=== PATIENT | female | born 1940 | race Caucasian/White ===

== ENCOUNTER 2018-03-04 13:54 | Inpatient (IN) | payer MEDICARE ==
--- NOTE | 2018-03-04 14:33 | ER Document Report ---
ED Medical Screen (RME) - General Chief Complaint: Abdominal Pain Stated Complaint: STOMACH AND BACK PAIN Time Seen by Provider: 03/04/18 14:29 Mode of Arrival: Wheelchair Information source: Patient TRAVEL OUTSIDE OF THE [place] IN LAST 30 DAYS: No - HPI Patient complains to provider of: Weakness Onset: Other - last 3 months since falling down Onset/Duration: Gradual - Related Data Allergies/Adverse Reactions: No Known Allergies Allergy (Verified 03/07/16 13:24) Past Medical History - General Information source: Patient - Social History Family history: CAD, CVA - Past Medical History Cardiac Medical History: Reports: Hx Hypertension - in hospital Denies: Hx Coronary Artery Disease, Hx Heart Attack Pulmonary Medical History: Denies: Hx Asthma, Hx Bronchitis, Hx COPD, Hx Pneumonia Neurological Medical History: Denies: Hx Cerebrovascular Accident, Hx Seizures Renal/ Medical History: Reports: Hx Renal Insufficiency. Denies: Hx Peritoneal Dialysis Malignancy Medical History: Reports: Hx Cervical Cancer Musculoskeltal Medical History: Denies Hx Arthritis - Immunizations Hx Diphtheria, Pertussis, Tetanus Vaccination: No Review of Systems - Review of Systems Notes: Urinary incontinence Physical Exam - Vital signs Vitals: Temp Pulse Resp BP Pulse Ox 98.2 F 91 18 127/76 H 100 03/04/18 13:57 03/04/18 13:57 03/04/18 13:57 03/04/18 13:57 03/04/18 13:57 - Notes Notes: Generally weak 70-year-old woman who is frail poor dentition No focal numbness or weakness Course - Re-evaluation Re-evalutation: 03/04/18 14:34 This generally weak 78-year-old woman will plan for broad-spectrum workup including urinalysis troponin CMP CBC and chest x-ray. This patient may have been in the length course related to an underlying urinary tract infection potentially pneumonia. We will plan for further evaluation. - Vital Signs Vital signs: Temp Pulse Resp BP Pulse Ox 98.2 F 91 18 127/76 H 100 03/04/18 13:57 03/04/18 13:57 03/04/18 13:57 03/04/18 13:57 03/04/18 13:57 Doctor's Discharge - Discharge Referrals: AYAZ LOUIE MD [Primary Care Provider] - Follow up as needed
[2018-03-04 15:07] LABS: ABSOLUTE BASOPHILS # (AUTO) 0.1 10^3/uL (0.0-0.2); ABSOLUTE EOSINOPHILS # (AUTO) 0.1 10^3/uL (0.0-0.6); ABSOLUTE LYMPHOCYTES (AUTO) 1.5 10^3/uL (0.5-4.7); ABSOLUTE MONOCYTES (AUTO) 0.4 10^3/uL (0.1-1.4); ABSOLUTE NEUT (AUTO) 7.6 10^3/uL (1.7-8.2); BASOPHILS % (AUTO) 0.6 % (0-2); EOSINOPHILS % (AUTO) 1.2 % (0-6); HEMATOCRIT 27.3 % (36.0-47.0); HEMOGLOBIN 8.7 g/dL (12.0-15.5); MEAN CORPUSCULAR HEMOGLOBIN 25.9 pg (27.0-33.4); MEAN CORPUSCULAR HGB CONC 31.9 g/dL (32.0-36.0); MEAN CORPUSCULAR VOLUME 81 fl (80-97); MONOCYTES % (AUTO) 4.6 % (3-13); PLATELET COUNT 382 10^3/uL (150-450); RED BLOOD COUNT 3.37 10^6/uL (3.72-5.28); RED CELL DISTRIBUTION WIDTH 16.4 % (11.5-14.0); SEGMENTED NEUTROPHILS % (AUTO) 78.6 % (42-78); TOTAL CELLS COUNTED % (AUTO) 100 %; WHITE BLOOD COUNT 9.7 10^3/uL (4.0-10.5)
[2018-03-04 15:28] LABS: ALANINE AMINOTRANSFERASE 16 U/L (9-52); ALBUMIN 3.7 g/dL (3.5-5.0); ALKALINE PHOSPHATASE 96 U/L (38-126); ANION GAP 15 (5-19); ASPARTATE AMINO TRANSFERASE 14 U/L (14-36); BILIRUBIN,DIRECT 0.3 mg/dL (0.0-0.4); BILIRUBIN,TOTAL 0.3 mg/dL (0.2-1.3); BLOOD UREA NITROGEN 61 mg/dL (7-20); CARBON DIOXIDE 19 mmol/L (22-30); CHLORIDE 108 mmol/L (98-107); GLUCOSE 116 mg/dL (75-110); LIPASE 114.3 U/L (23-300); POTASSIUM 5.6 mmol/L (3.6-5.0); SODIUM 141.9 mmol/L (137-145); TOTAL PROTEIN 8.2 g/dL (6.3-8.2)
--- NOTE | 2018-03-04 15:35 | RADIOLOGY REPORT (SQ) ---
EXAM DESCRIPTION: CHEST 2 VIEWS COMPLETED DATE/TIME: 03/04/2018 3:02 pm REASON FOR STUDY: weakness COMPARISON: 02/25/2016 EXAM PARAMETERS: NUMBER OF VIEWS: two views TECHNIQUE: Digital Frontal and Lateral radiographic views of the chest acquired. RADIATION DOSE: NA LIMITATIONS: none FINDINGS: LUNGS AND PLEURA: No opacities, masses or pneumothorax. No pleural effusion. MEDIASTINUM AND HILAR STRUCTURES: No masses or contour abnormalities. HEART AND VASCULAR STRUCTURES: Heart normal size. No evidence for failure. BONES: Possible old or healing rib fractures on the right anteriorly of 5th and 6th ribs. Slight kyphosis with anterior wedging midthoracic vertebral bodies. Stable. HARDWARE: None in the chest. OTHER: No other significant finding. IMPRESSION: No acute cardiopulmonary changes. COMMENT: Possible old or healing rib fractures on the right of the 5th and 6th ribs. TECHNICAL DOCUMENTATION: JOB ID: [id number] [employer]- All Rights Reserved Reading location - IP/workstation name: [email or web address]
[2018-03-04 17:47] LABS: APPEARANCE,URINE TURBID; BILIRUBIN,URINE NEGATIVE (NEGATIVE); COLOR,URINE YELLOW; GLUCOSE, URINE NEGATIVE (NEGATIVE); KETONES,URINE NEGATIVE (NEGATIVE); LEUKOCYTE ESTERASE,URINE LARGE (NEGATIVE); NITRITE,URINE NEGATIVE (NEGATIVE); PROTEIN,URINE 100 mg/dL (NEGATIVE); URINE SPECIFIC GRAVITY 1.011; UROBILINOGEN,URINE NEGATIVE mg/dL (<2.0)
--- NOTE | 2018-03-04 19:15 | ER Document Report ---
ED General - General Chief Complaint: Abdominal Pain Stated Complaint: STOMACH AND BACK PAIN Time Seen by Provider: 03/04/18 14:29 Mode of Arrival: Wheelchair Information source: Patient Notes: 78-year-old female presented to ED for complaint of generalized weakness tiredness no appetite frequent urination and falling down frequently over the last 3 months. Patient is alert and oriented respirations regular and unlabored. She does have mild tenderness bilateral abdomen generalized no severe tenderness anywhere. Her abdomen is soft and nondistended. She does have a positive UTI. She has a low hemoglobin of 8.7 and 27.3. BUN and creatinine are 60 and 2.80. These labs were drawn in the pit area. Patient states she has just been feeling weak and tired since her mother and she passed out at her mother's in September. He states she called her doctor this morning to go in and see him but they could not see her until Friday so she decided to come to the emergency room because she just did not feel good. She states she has had frequent urination. TRAVEL OUTSIDE OF THE [place] IN LAST 30 DAYS: No - HPI Onset: Other Onset/Duration: Intermittent - In September Quality of pain: Other - Mild abdominal discomfort states he would really describe it as pain Severity: Mild Pain Level: 1 Associated symptoms: Weakness, Other - Urinary frequency falling more often weakness and just feeling terrible Exacerbated by: Movement, Walking Relieved by: Denies Similar symptoms previously: Yes Recently seen / treated by doctor: No - Related Data Allergies/Adverse Reactions: No Known Allergies Allergy (Verified 03/07/16 13:24) Past Medical History - General Information source: Patient - Social History Smoking Status: Never Smoker Cigarette use (# per day): No Chew tobacco use (# tins/day): No Smoking Education Provided: No Frequency of alcohol use: Rare Drug Abuse: None Lives with: Spouse/Significant other Family History: Reviewed & Not Pertinent, Other Patient has suicidal ideation: No Patient has homicidal ideation: No - Past Medical History Cardiac Medical History: Reports: Hx Hypertension - in hospital Pulmonary Medical History: Reports: None EENT Medical History: Reports: None Neurological Medical History: Reports: None Endocrine Medical History: Reports: None Renal/ Medical History: Reports: Hx Renal Insufficiency Malignancy Medical History: Reports: Hx Cervical Cancer GI Medical History: Reports: None Musculoskeletal Medical History: Reports Hx Arthritis, Reports Hx Musculoskeletal Deformity Skin Medical History: Reports None Psychiatric Medical History: Reports: None Traumatic Medical History: Reports: None Infectious Medical History: Reports: None Surgical Hx: Negative Past Surgical History: Reports: None - Immunizations Hx Diphtheria, Pertussis, Tetanus Vaccination: No Review of Systems - Review of Systems Constitutional: Recent illness EENT: No symptoms reported Cardiovascular: No symptoms reported Respiratory: No symptoms reported Gastrointestinal: Abdominal pain Genitourinary: Frequency Female Genitourinary: No symptoms reported Musculoskeletal: No symptoms reported Skin: No symptoms reported Hematologic/Lymphatic: No symptoms reported Neurological/Psychological: Weakness -: Yes All other systems reviewed and negative Physical Exam - Vital signs Vitals: Temp Pulse Resp BP Pulse Ox 98.2 F 91 18 127/76 H 100 03/04/18 13:57 03/04/18 13:57 03/04/18 13:57 03/04/18 13:57 03/04/18 13:57 Interpretation: Normal - General General appearance: Appears well, Alert - HEENT Head: Normocephalic, Atraumatic Eyes: Normal Pupils: PERRL - Respiratory Respiratory status: No respiratory distress Chest status: Nontender Breath sounds: Normal Chest palpation: Normal - Cardiovascular Rhythm: Regular Heart sounds: Normal auscultation Murmur: No - Abdominal Inspection: Normal Distension: No distension Bowel sounds: Normal Tenderness: Nontender Organomegaly: No organomegaly - Back Back: Normal, Nontender - Extremities General upper extremity: Normal inspection, Nontender, Normal color, Normal ROM , Normal temperature General lower extremity: Normal inspection, Nontender, Normal color, Normal ROM , Normal temperature, Normal weight bearing. No: Rashida's sign - Neurological Neuro grossly intact: Yes Cognition: Normal Orientation: AAOx4 [place] Coma Scale Eye Opening: Spontaneous [place] Coma Scale Verbal: Oriented [place] Coma Scale Motor: Obeys Commands [place] Coma Scale Total: 15 Speech: Normal Motor strength normal: LUE, RUE, LLE, RLE Sensory: Normal - Psychological Associated symptoms: Normal affect, Normal mood - Skin Skin Temperature: Warm Skin Moisture: Dry Skin Color: Normal Course - Re-evaluation Re-evalutation: 03/04/18 19:28 General Ii Farmworker the ER attending and the hospitalist . I have discussed the lab results with both and this patient will be admitted to telemetry for her low H&H and elevated BUN/creatinine as well as her UTI and weakness. A an IV of Ringer's lactate at 125 and a gram of Rocephin IV have been ordered. Patient will be reevaluated by the hospitalist for admission. Patient has verbalized understanding of her treatment plan and agreement with this treatment plan. - Vital Signs Vital signs: Temp Pulse Resp BP Pulse Ox 98.2 F 91 18 127/76 H 100 03/04/18 13:57 03/04/18 13:57 03/04/18 13:57 03/04/18 13:57 03/04/18 13:57 - Laboratory Result Diagrams: 03/04/18 14:50 03/04/18 14:50 Laboratory results interpreted by me: 03/04/18 03/04/18 03/04/18 14:50 14:50 14:50 RBC 3.37 L Hgb 8.7 L Hct 27.3 L MCH 25.9 L MCHC 31.9 L RDW 16.4 H Seg Neutrophils % 78.6 H Potassium 5.6 H Chloride 108 H Carbon Dioxide 19 L BUN 61 H Creatinine 2.80 H Est GFR ( Amer) 20 L Est GFR (Non-Af Amer) 16 L Glucose 116 H Ammonia < 8.7 L Urine Protein Urine Blood Ur Leukocyte Esterase 03/04/18 17:30 RBC Hgb Hct MCH MCHC RDW Seg Neutrophils % Potassium Chloride Carbon Dioxide BUN Creatinine Est GFR ( Amer) Est GFR (Non-Af Amer) Glucose Ammonia Urine Protein 100 H Urine Blood MODERATE H Ur Leukocyte Esterase LARGE H - Diagnostic Test Radiology reviewed: Image reviewed, Reports reviewed Discharge - Discharge Clinical Impression: Low hemoglobin, Kidney insufficiency Abdominal pain Qualifiers: Abdominal location: generalized Qualified Code(s): R10.84 - Generalized abdominal pain UTI (urinary tract infection) Qualifiers: Urinary tract infection type: site unspecified Hematuria presence: with hematuria Qualified Code(s): N39.0 - Urinary tract infection, site not specified Disposition: ADMITTED INPATIENT Admitting Provider: Hospitalist - [facility] Admitted: Telemetry
[2018-03-04] MEDS ORDERED: SODIUM POLYSTYRENE SULFONATE 15 GM/60 ML PO ONE (19:17)
[2018-03-04] MEDS ORDERED: RINGERS SOLUTION,LACTATED 1,000 ML IV ONE (19:19)
[2018-03-04] MEDS ORDERED: CEFTRIAXONE 1 GM/D5W RTU 1 GM/50 ML RTUPB IV ONE (19:20)
[2018-03-04] MEDS ORDERED: ONDANSETRON HCL INJ/PF 4 MG/2 ML SDV IV PRN (19:26)
[2018-03-04] MEDS ORDERED: IPRATROPIUM/ALBUTEROL 0.5-2.5 MG/3 ML AMPUL NEB PRN (19:26)
[2018-03-04] MEDS ORDERED: ACETAMINOPHEN 325 MG TABLET PO PRN (19:26)
[2018-03-04] MEDS ORDERED: CEFTRIAXONE SODIUM 1,000 MG in NORMAL SALINE 50 ML IV ONE (20:30)
--- NOTE | 2018-03-04 21:23 | PDOC H&P ---
History of Present Illness Admission Date/PCP: 03/04/18 19:26 Patient complains of: Weakness, shaking History of Present Illness: IVA NELSON is a 78 year old female with no significant past medical history presents to the emergency room with complaint of generalized weakness and tiredness with decreased appetite and frequent urination. Patient has been having symptoms for past few months. Patient reports she has severe generalized weakness and sometimes she falls. Patient reports getting dizzy and shaky on standing up walking around. Patient also reports increased urinary frequency but denies any fever or nausea vomiting or abdominal pain or chest pain or shortness of breath. Patient denies recent sick contacts or travel. On arrival to emergency room she was afebrile and rest of the vitals were stable. Her laboratory workup shows hemoglobin of 8.7 which is lower than last known hemoglobin around and 2015. Chemistry shows potassium of 5.6 with elevated BUN and creatinine 61/2.8. Urine analysis shows UTI. Stool for Hemoccult is positive. Patient was given ceftriaxone and was referred to hospital admission. Past Medical History Cardiac Medical History: Reports: Hypertension - in hospital Denies: Coronary Artery Disease, Myocardial Infarction Pulmonary Medical History: Reports: None Denies: Asthma, Bronchitis, Chronic Obstructive Pulmonary Disease (COPD), Pneumonia EENT Medical History: Reports: None Neurological Medical History: Reports: None Denies: Seizures Endocrine Medical History: Reports: None Malignancy Medical History: Reports: Cervical Cancer GI Medical History: Reports: None Musculoskeltal Medical History: Reports: Arthritis Skin Medical History: Reports: None Psychiatric Medical History: Reports: None Traumatic Medical History: Reports: None Hematology: Reports: Anemia Infectious Medical History: Reports: None Past Surgical History Past Surgical History: Reports: None, Hysterectomy Social History Lives with: Spouse/Significant other Smoking Status: Never Smoker Frequency of Alcohol Use: Rare Hx Recreational Drug Use: No Hx Prescription Drug Abuse: No Family History Family History: Reviewed & Not Pertinent, Other Parental Family History Reviewed: No Children Family History Reviewed: No Sibling(s) Family History Reviewed.: No Medication/Allergy Home Medications: Ibuprofen/Diphenhydramine HCl [Advil Pm Liqui-Gels] 1 cap PO HSP PRN 03/04/18 Loperamide HCl [Loperamide] 2 mg PO DAILYP PRN 03/04/18 Allergies/Adverse Reactions: No Known Allergies Allergy (Verified 03/07/16 13:24) Review of Systems All systems: reviewed and no additional remarkable complaints except as stated Physical Exam Vital Signs: Temp Pulse Resp BP Pulse Ox 98.2 F 91 18 127/76 H 100 03/04/18 13:57 03/04/18 13:57 03/04/18 13:57 03/04/18 13:57 03/04/18 13:57 General appearance: PRESENT: no acute distress, cooperative, well-developed, well-nourished Head exam: PRESENT: atraumatic, normocephalic Eye exam: PRESENT: conjunctiva pale. ABSENT: conjunctival injection, conjunctiva pink, EOMI, nystagmus, periorbital swelling, PERRLA, scleral icterus , other Ear exam: ABSENT: bleeding, drainage, normal external ear exam, TM's normal bilaterally, other Mouth exam: PRESENT: moist, neck supple Neck exam: ABSENT: carotid bruit, JVD Respiratory exam: PRESENT: clear to auscultation zahira. ABSENT: crackles, rhonchi , wheezes Cardiovascular exam: PRESENT: RRR, +S1, +S2. ABSENT: gallop, rubs, systolic murmur GI/Abdominal exam: PRESENT: normal bowel sounds, soft. ABSENT: organolmegaly, tenderness Rectal exam: PRESENT: heme (+) stool Gentrourinary exam: ABSENT: ecchymosis, erythema, lacerations, lesions, scrotal swelling, testicular tenderness, urethral discharge, indwelling catheter, other Extremities exam: ABSENT: calf tenderness, clubbing, full ROM, joint swelling, pedal edema, tenderness, +1 edema, +2 edema, other Musculoskeletal exam: PRESENT: ambulatory Neurological exam: PRESENT: alert, altered, awake, oriented to time, oriented to situation, reflexes normal Psychiatric exam: ABSENT: homicidal ideation, suicidal ideation Skin exam: PRESENT: pallor. ABSENT: petechiae, rash Results Laboratory Results: All labs reviewed Impressions: Chest X-Ray 03/04/18 14:30 IMPRESSION: No acute cardiopulmonary changes. Status: Image reviewed by me Assessment & Plan - Diagnosis (1) UTI (urinary tract infection) Qualifiers: Urinary tract infection type: site unspecified Hematuria presence: with hematuria Qualified Code(s): N39.0 - Urinary tract infection, site not specified; R31.9 - Hematuria, unspecified; R31.9 - Hematuria, unspecified Is this a current diagnosis for this admission?: Yes Plan: Patient does not appear septic. We will start patient on IV ceftriaxone and follow-up urine culture. (2) ARF (acute renal failure) Is this a current diagnosis for this admission?: Yes Plan: Patient with acute renal failure likely secondary to dehydration and poor appetite. We will continue IV fluid and recheck renal function in morning. Avoid nephrotoxic medication. (3) Occult blood in stools Is this a current diagnosis for this admission?: Yes Plan: Patient with anemia and Hemoccult-positive stool. Patient denies any janelle melena or rectal bleeding. Patient denies abdominal pain. We will consult GI service for possible colonoscopy. (4) Anemia Qualifiers: Anemia type: unspecified type Qualified Code(s): D64.9 - Anemia, unspecified Is this a current diagnosis for this admission?: Yes Plan: Likely secondary to occult GI bleed. Hemoglobin is 8.7. Will recheck CBC in the morning and consider. PRBC transfused transfusion if needed - Time Time Spent: 50 to 70 Minutes - Inpatient Certification Based on my medical assessment, after consideration of the patient's comorbidities, presenting symptoms, or acuity I expect that the services needed warrant INPATIENT care.: Yes I certify that my determination is in accordance with my understanding of Medicare's requirements for reasonable and necessary INPATIENT services [42 CFR 412.3e].: Yes Medical Necessity: Need For IV Fluids, Need for IV Antibiotics
[2018-03-05 04:01] LABS: ABSOLUTE BASOPHILS # (AUTO) 0.1 10^3/uL (0.0-0.2); ABSOLUTE EOSINOPHILS # (AUTO) 0.2 10^3/uL (0.0-0.6); ABSOLUTE LYMPHOCYTES (AUTO) 1.3 10^3/uL (0.5-4.7); ABSOLUTE MONOCYTES (AUTO) 0.6 10^3/uL (0.1-1.4); ABSOLUTE NEUT (AUTO) 7.7 10^3/uL (1.7-8.2); BASOPHILS % (AUTO) 0.6 % (0-2); EOSINOPHILS % (AUTO) 1.6 % (0-6); HEMATOCRIT 23.4 % (36.0-47.0); LYMPHOCYTES % (AUTO) 13.4 % (13-45); MEAN CORPUSCULAR HEMOGLOBIN 26.9 pg (27.0-33.4); MEAN CORPUSCULAR HGB CONC 33.1 g/dL (32.0-36.0); MEAN CORPUSCULAR VOLUME 81 fl (80-97); PLATELET COUNT 320 10^3/uL (150-450); RED BLOOD COUNT 2.88 10^6/uL (3.72-5.28); RED CELL DISTRIBUTION WIDTH 16.6 % (11.5-14.0); SEGMENTED NEUTROPHILS % (AUTO) 78.4 % (42-78); TOTAL CELLS COUNTED % (AUTO) 100 %; WHITE BLOOD COUNT 9.8 10^3/uL (4.0-10.5)
[2018-03-05 04:04] LABS: HEMOGLOBIN 7.7 g/dL (12.0-15.5)
[2018-03-05 04:29] LABS: ALANINE AMINOTRANSFERASE 19 U/L (9-52); ALBUMIN 3.3 g/dL (3.5-5.0); ALKALINE PHOSPHATASE 87 U/L (38-126); ANION GAP 13 (5-19); ASPARTATE AMINO TRANSFERASE 13 U/L (14-36); BILIRUBIN,DIRECT 0.3 mg/dL (0.0-0.4); BILIRUBIN,TOTAL 0.3 mg/dL (0.2-1.3); BLOOD UREA NITROGEN 62 mg/dL (7-20); CALCIUM 8.4 mg/dL (8.4-10.2); CARBON DIOXIDE 18 mmol/L (22-30); CHLORIDE 113 mmol/L (98-107); GLUCOSE 106 mg/dL (75-110); POTASSIUM 4.9 mmol/L (3.6-5.0); SODIUM 144.3 mmol/L (137-145); TOTAL PROTEIN 7.3 g/dL (6.3-8.2)
[2018-03-05] MEDS ORDERED: CEFTRIAXONE 1 GM/D5W RTU 1 GM/50 ML RTUPB IV SCH (10:00)
--- NOTE | 2018-03-05 11:21 | PDOC CONSULTATION ---
History of Present Illness Admission Date/PCP: 03/04/18 19:26 History of Present Illness: IVA NELSON is a 78 year old female Presents to the emergency department approximately 1 day ago via ground rescue complaining of weakness, generalized, worse over the last several weeks, associated with 40 pound weight loss over the last 6 months and decreased p.o. intake. She was found to be hyperkalemic and was given Kayexalate with clinical improvement. She has progressive chronic renal insufficiency likely stage III. Patient is seen Dr. Vyas, crocheter. Because of progressive anemia of unexplained etiology, patient was advised admission to the hospital service for further evaluation. The patient has never had a colonoscopy, denies personal and/or family history of colorectal diseases or malignancies. She denies history of GI bleed melena or history of peptic ulcer disease. Past Medical History Cardiac Medical History: Reports: Hypertension - in hospital Denies: Coronary Artery Disease, Myocardial Infarction Pulmonary Medical History: Reports: None Denies: Asthma, Bronchitis, Chronic Obstructive Pulmonary Disease (COPD), Pneumonia EENT Medical History: Reports: None Neurological Medical History: Reports: None Denies: Seizures Endocrine Medical History: Reports: None Renal/ Medical History: Reports: Chronic Kidney Disease Malignancy Medical History: Reports: Cervical Cancer GI Medical History: Reports: None Musculoskeltal Medical History: Reports: Arthritis Skin Medical History: Reports: None Psychiatric Medical History: Reports: None Traumatic Medical History: Reports: None Hematology: Reports: Anemia Infectious Medical History: Reports: None Past Surgical History Past Surgical History: Patient states she has never had an operation. She states she still has her gynecologic organs. She received radiation therapy for cervical cancer 40 years ago. Past Surgical History: Reports: None, Hysterectomy Social History Lives with: Spouse/Significant other Smoking Status: Never Smoker Frequency of Alcohol Use: Rare Hx Recreational Drug Use: No Hx Prescription Drug Abuse: No Family History Family History: Reviewed & Not Pertinent, Other Parental Family History Reviewed: Yes Children Family History Reviewed: Yes Sibling(s) Family History Reviewed.: Yes Medication/Allergy Home Medications: Ibuprofen/Diphenhydramine HCl [Advil Pm Liqui-Gels] 1 cap PO HSP PRN 03/04/18 Loperamide HCl [Loperamide] 2 mg PO DAILYP PRN 03/04/18 Allergies/Adverse Reactions: No Known Allergies Allergy (Verified 08/04/16 13:24) Review of Systems Constitutional: PRESENT: as per HPI Eyes: ABSENT: visual disturbances Ears: ABSENT: hearing changes Cardiovascular: ABSENT: chest pain, dyspnea on exertion, edema, orthropnea, palpitations Respiratory: ABSENT: cough, hemoptysis Genitourinary: PRESENT: other - Patient has a history of hematuria, current urinary tract infection; has seen urology in the past Musculoskeletal: PRESENT: other - Chronic musculoskeletal weakness Neurological: ABSENT: abnormal gait, abnormal speech, confusion, dizziness, focal weakness, syncope Physical Exam Vital Signs: Temp Pulse Resp BP Pulse Ox 98.2 F 91 18 127/76 H 100 03/04/18 13:57 03/04/18 13:57 03/04/18 13:57 03/04/18 13:57 03/04/18 13:57 Intake & Output 03/04/18 03/05/18 03/06/18 06:59 06:59 06:59 Intake Total 1050 Balance 1050 General appearance: PRESENT: no acute distress Head exam: PRESENT: normocephalic Eye exam: PRESENT: EOMI Mouth exam: PRESENT: dry mucosa Neck exam: PRESENT: full ROM Respiratory exam: PRESENT: rales Cardiovascular exam: PRESENT: RRR Pulses: PRESENT: normal carotid pulses, normal radial pulses, normal femoral pulses, normal dorsalis pedis pul, +2 pedal pulses bilateral GI/Abdominal exam: PRESENT: other - Soft, nontender no peritoneal signs no rigidity Rectal exam not performed Rectal exam: PRESENT: deferred Extremities exam: PRESENT: full ROM Musculoskeletal exam: PRESENT: ambulatory Neurological exam: PRESENT: alert, awake, oriented to person, oriented to place , oriented to time, oriented to situation Psychiatric exam: PRESENT: appropriate affect Results Laboratory Results: 03/05/18 03:50 03/05/18 03:50 03/05/18 03/05/18 03:50 03:50 WBC 9.8 RBC 2.88 L Hgb 7.7 L Hct 23.4 L MCV 81 MCH 26.9 L MCHC 33.1 RDW 16.6 H Plt Count 320 Seg Neutrophils % 78.4 H Lymphocytes % 13.4 Monocytes % 6.0 Eosinophils % 1.6 Basophils % 0.6 Absolute Neutrophils 7.7 Absolute Lymphocytes 1.3 Absolute Monocytes 0.6 Absolute Eosinophils 0.2 Absolute Basophils 0.1 Sodium 144.3 Potassium 4.9 Chloride 113 H Carbon Dioxide 18 L Anion Gap 13 BUN 62 H Creatinine 2.83 H Est GFR ( Amer) 20 L Est GFR (Non-Af Amer) 16 L Glucose 106 Calcium 8.4 Total Bilirubin 0.3 AST 13 L ALT 19 Alkaline Phosphatase 87 Total Protein 7.3 Albumin 3.3 L Impressions: Chest X-Ray 03/04/18 14:30 IMPRESSION: No acute cardiopulmonary changes. Assessment & Plan - Diagnosis (1) Anemia Qualifiers: Anemia type: unspecified type Qualified Code(s): D64.9 - Anemia, unspecified Is this a current diagnosis for this admission?: Yes Plan: This 78-year-old white female with constitutional symptoms of decreased energy, decreased appetite, weight loss, chronic anemia and relies failure to thrive concerning for worsening chronic renal failure versus occult malignancy; in light of patient never having had a colonoscopy, occult GI bleed with chronic blood loss may be responsible. Recommendations: 1. Suggested we perform upper and lower endoscopy, fifth floor, conscious sedation, later today after bowel prep. The rationale for this as well as risks benefits and alternatives were explained to the patient. She expressed understanding and agreed to proceed. 2. I discussed the above with primary care hospitalist service (2) ARF (acute renal failure) Is this a current diagnosis for this admission?: Yes (4) Occult blood in stools Is this a current diagnosis for this admission?: Yes - Time Time Spent: 30 to 50 Minutes Smoking Cessation Education: over 10 minutes Medications reviewed and adjusted accordingly: Yes Anticipated discharge: Home - Inpatient Certification Based on my medical assessment, after consideration of the patient's comorbidities, presenting symptoms, or acuity I expect that the services needed warrant INPATIENT care.: Yes I certify that my determination is in accordance with my understanding of Medicare's requirements for reasonable and necessary INPATIENT services [42 CFR 412.3e].: Yes Medical Necessity: Need For IV Fluids
[2018-03-05] MEDS ORDERED: PEG 3350/NA SULF,BICARB,CL/KCL 4000 ML PO PRN (11:22)
[2018-03-05] MEDS: NORMAL SALINE 1000 ML 1,000 ML IV PRN (12:50)
[2018-03-05] MEDS ORDERED: DIPHENHYDRAMINE HCL 50 MG/ML VIAL ONE (16:45)
[2018-03-05] MEDS ORDERED: NALOXONE HCL INJ/PF 0.4 MG/1 ML SDV ONE (16:45)
[2018-03-05] MEDS ORDERED: FENTANYL CITRATE INJ/PF 100 MCG/2 ML AMPUL ONE (16:45)
[2018-03-05] MEDS ORDERED: ONDANSETRON HCL INJ/PF 4 MG/2 ML SDV ONE (16:45)
[2018-03-05] MEDS ORDERED: EPINEPHRINE INJ 1 MG/10 ML DISP.SYRIN ONE (16:46)
[2018-03-05] MEDS ORDERED: GLUCAGON,HUMAN RECOMB 1 MG INJ ONE (16:46)
[2018-03-05] MEDS ORDERED: FLUMAZENIL INJ 0.5 MG/5 ML VIAL ONE (16:46)
--- NOTE | 2018-03-05 17:59 | PDOC PROGRESS REPORT ---
Subjective Progress Note for:: 03/05/18 Subjective:: Patient is lying in bed comfortably. She mentions that she had black stool and then she had several loose stool afterwards. Her hemoglobin is trending down but she is hemodynamically stable and essentially asymptomatic. GI plans for EGD and colonoscopy later today. Reason For Visit: UTI, WEAKNESS Physical Exam Vital Signs: Temp Pulse Resp BP Pulse Ox 98.4 F 82 18 136/68 H 96 03/05/18 17:28 03/05/18 17:28 03/05/18 17:28 03/05/18 17:28 03/05/18 17:28 Intake & Output 03/04/18 03/05/18 03/06/18 06:59 06:59 06:59 Intake Total 1050 Balance 1050 Weight 164 lb 3.91 oz Exam: Patient no acute distress Alert oriented to time place person No anxiety or depression Head atraumatic normocephalic Pupils are equal reactive Regular rate and rhythm Lungs clear no distress Abdomen nontender nondistended Neurological exam unremarkable Results Laboratory Results: 03/05/18 03:50 03/05/18 03:50 03/05/18 03/05/18 03:50 03:50 WBC 9.8 RBC 2.88 L Hgb 7.7 L Hct 23.4 L MCV 81 MCH 26.9 L MCHC 33.1 RDW 16.6 H Plt Count 320 Seg Neutrophils % 78.4 H Lymphocytes % 13.4 Monocytes % 6.0 Eosinophils % 1.6 Basophils % 0.6 Absolute Neutrophils 7.7 Absolute Lymphocytes 1.3 Absolute Monocytes 0.6 Absolute Eosinophils 0.2 Absolute Basophils 0.1 Sodium 144.3 Potassium 4.9 Chloride 113 H Carbon Dioxide 18 L Anion Gap 13 BUN 62 H Creatinine 2.83 H Est GFR ( Amer) 20 L Est GFR (Non-Af Amer) 16 L Glucose 106 Calcium 8.4 Total Bilirubin 0.3 AST 13 L ALT 19 Alkaline Phosphatase 87 Total Protein 7.3 Albumin 3.3 L Impressions: Chest X-Ray 03/04/18 14:30 IMPRESSION: No acute cardiopulmonary changes. Assessment & Plan - Diagnosis (1) Melena Is this a current diagnosis for this admission?: Yes Plan: Patient is scheduled for EGD and colonoscopy later today (2) ARF (acute renal failure) Is this a current diagnosis for this admission?: Yes Plan: Most likely prerenal Continue IV fluid hydration Monitor renal function (3) Anemia Qualifiers: Anemia type: unspecified type Qualified Code(s): D64.9 - Anemia, unspecified Is this a current diagnosis for this admission?: Yes Plan: Monitor hemoglobin and transfuse if needed (4) Occult blood in stools Is this a current diagnosis for this admission?: Yes
[2018-03-05] MEDS: MIDAZOLAM 2 MG/2 ML INJ ONE ×4 (18:40→18:55)
--- NOTE | 2018-03-05 19:21 | Operative Report ---
Operative Report DATE OF SURGERY: 03/05/18 PREOPERATIVE DIAGNOSIS: 1. Weight loss. 2. Constitutional symptoms of anorexia. 3. Occult positive stool POSTOPERATIVE DIAGNOSIS: Same with mild duodenitis; scattered diverticulosiS;. No upper or lower endoscopic evidence of GI bleeding, tumor, or other intestinal pathology OPERATION: 1. Esophagogastroduodenoscopy. 2. Total colonoscopy to cecum SURGEON: RIYA GAINES ANESTHESIA: Moderate Sedation TISSUE REMOVED OR ALTERED: None COMPLICATIONS: None ESTIMATED BLOOD LOSS: None INTRAOPERATIVE FINDINGS: See below PROCEDURE: Patient was brought from the floor to the endoscopy suite for [facility] where monitoring devices were attached, she was placed in semirecumbent position was begun for upper and lower endoscopy Surgical plan and surgical timeout conducted The flexible upper adult endoscope was advanced to the patient oropharynx with mouthpiece inserted down the esophagus through the stomach and into the duodenum. This is well tolerated by the patient The duodenum was essentially unremarkable. The transition between the pylorus and the first portion of the duodenum is mildly erythematous, but no evidence of tumor or stricture bleeding or ulceration. The scope was brought to the stomach which was normal. There was a small hiatal hernia. There is no evidence of tumor stricture bleeding or polyp in the stomach. There is no evidence of contents in the stomach. The Z line was approximately 36 cm from the incisor. The scope was withdrawn to the length of the esophagus carefully. No evidence of pathology identified. No evidence of varices. The scope was withdrawn to the patient's oropharynx. She tolerated the procedure well. Patient was repositioned now for colonoscopy. Rectal exam performed revealed appropriate sphincter tone, no visible or palpable evidence of anorectal pathology other than internal at the flexible colonoscope through the anal rectal canal, all the way to the cecum. Visualization of the cecum was achieved and the ileocecal valve, the appendiceal orifice and transillumination of the anterior abdominal wall. This was an excellent study on the well- prepped bowel. There was only residual amount of residual stool easily aspirated. The colonoscope was withdrawn slowly and methodically checked and the mucosa carefully. There was no evidence of tumor, stricture, bleeding or polyp. There were scattered diverticulosis of the sigmoid colon . The scope was slowly withdrawn through the anal rectal canal. Complete visualization of the rectum was achieved with photodocumentation. The scope was withdrawn to the patient's anus. The patient tolerated the procedure well and was taken to the recovery area in stable condition. In summary, there was no evidence of upper or lower gastrointestinal hemorrhage identified. Lines, patient will be an appropriate candidate follow-up colonoscopy in 10 years
[2018-03-05] MEDS ORDERED: CEFTRIAXONE SODIUM 1,000 MG in DEXTROSE 5%-WATER 50 ML IV SCH (22:00)
[2018-03-05] MEDS ORDERED: CEFTRIAXONE INJ 1000 MG VIAL ONE (22:34)
[2018-03-06 06:52] LABS: ABSOLUTE BASOPHILS # (AUTO) 0.1 10^3/uL (0.0-0.2); ABSOLUTE EOSINOPHILS # (AUTO) 0.1 10^3/uL (0.0-0.6); ABSOLUTE LYMPHOCYTES (AUTO) 1.5 10^3/uL (0.5-4.7); ABSOLUTE MONOCYTES (AUTO) 0.7 10^3/uL (0.1-1.4); ABSOLUTE NEUT (AUTO) 9.6 10^3/uL (1.7-8.2); BASOPHILS % (AUTO) 0.7 % (0-2); EOSINOPHILS % (AUTO) 0.9 % (0-6); HEMATOCRIT 21.7 % (36.0-47.0); LYMPHOCYTES % (AUTO) 12.6 % (13-45); MEAN CORPUSCULAR HEMOGLOBIN 26.4 pg (27.0-33.4); MEAN CORPUSCULAR HGB CONC 32.4 g/dL (32.0-36.0); MEAN CORPUSCULAR VOLUME 82 fl (80-97); MONOCYTES % (AUTO) 5.8 % (3-13); PLATELET COUNT 286 10^3/uL (150-450); RED BLOOD COUNT 2.67 10^6/uL (3.72-5.28); RED CELL DISTRIBUTION WIDTH 16.3 % (11.5-14.0); TOTAL CELLS COUNTED % (AUTO) 100 %
[2018-03-06 07:15] LABS: ALANINE AMINOTRANSFERASE 17 U/L (9-52); ALBUMIN 2.8 g/dL (3.5-5.0); ALKALINE PHOSPHATASE 78 U/L (38-126); ANION GAP 12 (5-19); ASPARTATE AMINO TRANSFERASE 11 U/L (14-36); BILIRUBIN,DIRECT 0.3 mg/dL (0.0-0.4); BILIRUBIN,TOTAL 0.3 mg/dL (0.2-1.3); BLOOD UREA NITROGEN 51 mg/dL (7-20); CARBON DIOXIDE 16 mmol/L (22-30); CHLORIDE 116 mmol/L (98-107); GLUCOSE 108 mg/dL (75-110); POTASSIUM 4.9 mmol/L (3.6-5.0); SODIUM 144.2 mmol/L (137-145); TOTAL PROTEIN 6.6 g/dL (6.3-8.2)
[2018-03-06] MEDS: NORMAL SALINE 1000 ML 1,000 ML IV PRN (13:50)
--- NOTE | 2018-03-06 14:48 | PDOC PROGRESS REPORT ---
Subjective Progress Note for:: 03/06/18 Subjective:: Patient is lying in bed comfortably. Patient feels better today. She has no urinary symptoms. She had EGD and colonoscopy yesterday was no evidence of upper or lower GI bleeding. Her hemoglobin did drop to 7.0 today but her creatinine improved slightly. Reason For Visit: UTI, WEAKNESS Physical Exam Vital Signs: Temp Pulse Resp BP Pulse Ox 98.4 F 82 16 142/67 H 100 03/06/18 11:11 03/06/18 11:11 03/06/18 11:11 03/06/18 11:11 03/06/18 11:11 Intake & Output 03/05/18 03/06/18 03/07/18 06:59 06:59 06:59 Intake Total 9869 552 4025 Balance 7437 525 1861 Weight 172 lb 6.424 oz General appearance: PRESENT: no acute distress, well-developed, well-nourished Head exam: PRESENT: atraumatic, normocephalic Eye exam: PRESENT: conjunctiva pink, EOMI, PERRLA. ABSENT: scleral icterus Ear exam: PRESENT: normal external ear exam Mouth exam: PRESENT: moist, tongue midline Neck exam: ABSENT: carotid bruit, JVD, lymphadenopathy, thyromegaly Respiratory exam: PRESENT: clear to auscultation zahira. ABSENT: rales, rhonchi, wheezes Cardiovascular exam: PRESENT: RRR. ABSENT: diastolic murmur, rubs, systolic murmur Pulses: PRESENT: normal dorsalis pedis pul Vascular exam: PRESENT: normal capillary refill GI/Abdominal exam: PRESENT: normal bowel sounds, soft. ABSENT: distended, guarding, mass, organolmegaly, rebound, tenderness Rectal exam: PRESENT: deferred Extremities exam: PRESENT: full ROM. ABSENT: calf tenderness, clubbing, pedal edema Neurological exam: PRESENT: alert, awake, oriented to person, oriented to place , oriented to time, oriented to situation, CN II-XII grossly intact. ABSENT: motor sensory deficit Psychiatric exam: PRESENT: appropriate affect, normal mood. ABSENT: homicidal ideation, suicidal ideation Skin exam: PRESENT: dry, intact, warm. ABSENT: cyanosis, rash Results Laboratory Results: 03/06/18 06:22 03/06/18 06:22 03/06/18 03/06/18 06:22 06:22 WBC 12.0 H RBC 2.67 L Hgb 7.0 L Hct 21.7 L MCV 82 MCH 26.4 L MCHC 32.4 RDW 16.3 H Plt Count 286 Seg Neutrophils % 80.0 H Lymphocytes % 12.6 L Monocytes % 5.8 Eosinophils % 0.9 Basophils % 0.7 Absolute Neutrophils 9.6 H Absolute Lymphocytes 1.5 Absolute Monocytes 0.7 Absolute Eosinophils 0.1 Absolute Basophils 0.1 Sodium 144.2 Potassium 4.9 Chloride 116 H Carbon Dioxide 16 L Anion Gap 12 BUN 51 H Creatinine 2.29 H Est GFR ( Amer) 25 L Est GFR (Non-Af Amer) 21 L Glucose 108 Calcium 8.0 L Total Bilirubin 0.3 AST 11 L ALT 17 Alkaline Phosphatase 78 Total Protein 6.6 Albumin 2.8 L Impressions: Chest X-Ray 03/04/18 14:30 IMPRESSION: No acute cardiopulmonary changes. Assessment & Plan - Diagnosis (1) Melena Is this a current diagnosis for this admission?: Yes Plan: EGD and colonoscopy done yesterday and there was no evidence of upper or lower GI bleed Hemoglobin dropped today to 7.0 but she is asymptomatic This is likely due to hemodilution from IV fluids We will check iron studies and ferritin and LDH and reticulocyte count Most likely this is chronic anemia and worsened with IV hydration and possible occult chronic blood loss Monitor hemoglobin tomorrow and transfuse if needed (2) ARF (acute renal failure) Is this a current diagnosis for this admission?: Yes Plan: Improvement with hydration most likely prerenal Continue IV fluid hydration Monitor renal function (3) Anemia Qualifiers: Anemia type: unspecified type Qualified Code(s): D64.9 - Anemia, unspecified Is this a current diagnosis for this admission?: Yes Plan: Monitor hemoglobin and transfuse if needed (4) Occult blood in stools Is this a current diagnosis for this admission?: Yes (5) UTI (urinary tract infection) Qualifiers: Urinary tract infection type: site unspecified Hematuria presence: with hematuria Qualified Code(s): N39.0 - Urinary tract infection, site not specified; R31.9 - Hematuria, unspecified; R31.9 - Hematuria, unspecified Is this a current diagnosis for this admission?: Yes Plan: Cultures positive for E. coli Start ciprofloxacin
[2018-03-06 15:40] LABS: ABSOLUTE RETICS # 0.033 10^6/uL (0.028-0.122); RETICULOCYTE COUNT (AUTO) 1.23 % (0.66-2.85)
[2018-03-06 16:43] LABS: FOLATE 7.13 ng/mL (>2.76)
[2018-03-06 16:48] LABS: IRON(TIBC) < 10.1 ug/dL (37-170)
[2018-03-06] MEDS: CIPROFLOXACIN HCL 500 MG TABLET PO SCH (17:14)
[2018-03-07 06:12] LABS: ALANINE AMINOTRANSFERASE 17 U/L (9-52); ALBUMIN 2.4 g/dL (3.5-5.0); ALKALINE PHOSPHATASE 65 U/L (38-126); ANION GAP 10 (5-19); ASPARTATE AMINO TRANSFERASE 11 U/L (14-36); BILIRUBIN,DIRECT 0.3 mg/dL (0.0-0.4); BILIRUBIN,TOTAL 0.3 mg/dL (0.2-1.3); BLOOD UREA NITROGEN 34 mg/dL (7-20); CALCIUM 7.7 mg/dL (8.4-10.2); CARBON DIOXIDE 15 mmol/L (22-30); CHLORIDE 119 mmol/L (98-107); GLUCOSE 88 mg/dL (75-110); POTASSIUM 4.5 mmol/L (3.6-5.0); SODIUM 144.2 mmol/L (137-145); TOTAL PROTEIN 5.8 g/dL (6.3-8.2)
[2018-03-07 06:36] LABS: ABSOLUTE BASOPHILS # (AUTO) 0.1 10^3/uL (0.0-0.2); ABSOLUTE EOSINOPHILS # (AUTO) 0.1 10^3/uL (0.0-0.6); ABSOLUTE LYMPHOCYTES (AUTO) 1.6 10^3/uL (0.5-4.7); ABSOLUTE MONOCYTES (AUTO) 0.6 10^3/uL (0.1-1.4); ABSOLUTE NEUT (AUTO) 8.8 10^3/uL (1.7-8.2); BASOPHILS % (AUTO) 0.7 % (0-2); EOSINOPHILS % (AUTO) 0.9 % (0-6); HEMATOCRIT 19.3 % (36.0-47.0); LYMPHOCYTES % (AUTO) 14.2 % (13-45); MEAN CORPUSCULAR HEMOGLOBIN 26.2 pg (27.0-33.4); MEAN CORPUSCULAR HGB CONC 32.2 g/dL (32.0-36.0); MEAN CORPUSCULAR VOLUME 82 fl (80-97); MONOCYTES % (AUTO) 5.4 % (3-13); PLATELET COUNT 266 10^3/uL (150-450); RED BLOOD COUNT 2.37 10^6/uL (3.72-5.28); RED CELL DISTRIBUTION WIDTH 16.3 % (11.5-14.0); SEGMENTED NEUTROPHILS % (AUTO) 78.8 % (42-78); TOTAL CELLS COUNTED % (AUTO) 100 %; WHITE BLOOD COUNT 11.1 10^3/uL (4.0-10.5)
[2018-03-07 06:38] LABS: HEMOGLOBIN 6.2 g/dL (12.0-15.5)
[2018-03-07] MEDS ORDERED: INSULIN REG, HUMAN 100 UNIT/ML 3 ML VIAL (PYX) ONE (08:42)
[2018-03-07] MEDS: CIPROFLOXACIN HCL 500 MG TABLET PO SCH ×2 (10:00→21:13)
[2018-03-07] MEDS ORDERED: IRON SUCROSE COMPLEX INJ/PF 100 MG/5 ML SDV IV ONE (14:59)
--- NOTE | 2018-03-07 15:05 | PDOC PROGRESS REPORT ---
Subjective Progress Note for:: 03/07/18 Subjective:: Patient is lying in bed comfortably. She feels slightly tired today. Hemoglobin dropped below 7 today and she will be transfused. no urinary symptoms. She had EGD and colonoscopy 03/05/18 was no evidence of upper or lower GI bleeding. Reason For Visit: UTI, WEAKNESS Physical Exam Vital Signs: Temp Pulse Resp BP Pulse Ox 98.5 F 70 17 143/63 H 99 03/07/18 14:28 03/07/18 14:28 03/07/18 14:28 03/07/18 14:28 03/07/18 14:28 Intake & Output 03/06/18 03/07/18 03/08/18 06:59 06:59 06:59 Intake Total 450 1799 350 Balance 450 1799 350 Weight 172 lb 6.424 oz 179 lb 0.246 oz General appearance: PRESENT: cooperative. ABSENT: no acute distress Head exam: ABSENT: atraumatic, normocephalic Eye exam: PRESENT: conjunctiva pale, PERRLA. ABSENT: EOMI Mouth exam: PRESENT: neck supple Neck exam: ABSENT: JVD, meningismus, tenderness, thyromegaly Respiratory exam: PRESENT: clear to auscultation zahira. ABSENT: rales, rhonchi, wheezes Cardiovascular exam: PRESENT: RRR. ABSENT: diastolic murmur, rubs, systolic murmur Pulses: PRESENT: normal dorsalis pedis pul GI/Abdominal exam: PRESENT: normal bowel sounds, soft. ABSENT: distended, guarding, mass, organolmegaly, rebound, tenderness Neurological exam: PRESENT: alert, awake, oriented to person, oriented to place , oriented to time, oriented to situation, CN II-XII grossly intact. ABSENT: motor sensory deficit Results Laboratory Results: 03/07/18 05:22 03/07/18 05:22 03/06/18 03/06/18 03/07/18 06:22 06:22 05:22 WBC 11.1 H RBC 2.37 L Hgb 6.2 L Hct 19.3 L MCV 82 MCH 26.2 L MCHC 32.2 RDW 16.3 H Plt Count 266 Seg Neutrophils % 78.8 H Lymphocytes % 14.2 Monocytes % 5.4 Eosinophils % 0.9 Basophils % 0.7 Absolute Neutrophils 8.8 H Absolute Lymphocytes 1.6 Absolute Monocytes 0.6 Absolute Eosinophils 0.1 Absolute Basophils 0.1 Retic Count (auto) 1.23 Absolute Retic 0.033 Sodium Potassium Chloride Carbon Dioxide Anion Gap BUN Creatinine Est GFR ( Amer) Est GFR (Non-Af Amer) Glucose Calcium Iron < 10.1 L TIBC 252 % Saturation UNABLE TO CALCULATE Ferritin 57.10 Total Bilirubin AST ALT Alkaline Phosphatase Total Protein Albumin Vitamin B12 213.0 L Folate 7.13 Blood Type Antibody Screen 03/07/18 03/07/18 05:22 07:55 WBC RBC Hgb Hct MCV MCH MCHC RDW Plt Count Seg Neutrophils % Lymphocytes % Monocytes % Eosinophils % Basophils % Absolute Neutrophils Absolute Lymphocytes Absolute Monocytes Absolute Eosinophils Absolute Basophils Retic Count (auto) Absolute Retic Sodium 144.2 Potassium 4.5 Chloride 119 H Carbon Dioxide 15 L Anion Gap 10 BUN 34 H Creatinine 1.94 H Est GFR ( Amer) 30 L Est GFR (Non-Af Amer) 25 L Glucose 88 Calcium 7.7 L Iron TIBC % Saturation Ferritin Total Bilirubin 0.3 AST 11 L ALT 17 Alkaline Phosphatase 65 Total Protein 5.8 L Albumin 2.4 L Vitamin B12 Folate Blood Type A POSITIVE Antibody Screen NEGATIVE Impressions: Chest X-Ray 03/04/18 14:30 IMPRESSION: No acute cardiopulmonary changes. Assessment & Plan - Diagnosis (1) Melena Is this a current diagnosis for this admission?: Yes Plan: EGD and colonoscopy done yesterday and there was no evidence of upper or lower GI bleed Hemoglobin dropped today to 7.0 but she is asymptomatic This is likely due to hemodilution from IV fluids Reviewed iron studies and ferritin and LDH and reticulocyte count Most likely this is chronic anemia and worsened with IV hydration and possible occult chronic blood loss Monitor hemoglobin tomorrow and transfuse if needed (2) ARF (acute renal failure) Is this a current diagnosis for this admission?: Yes Plan: Improvement with hydration most likely prerenal Back to baseline, DC IV fluids Monitor renal function (3) Anemia Qualifiers: Anemia type: unspecified type Qualified Code(s): D64.9 - Anemia, unspecified Is this a current diagnosis for this admission?: Yes Plan: Monitor hemoglobin We will transfuse today and check levels tomorrow (4) Occult blood in stools Is this a current diagnosis for this admission?: Yes (5) UTI (urinary tract infection) Qualifiers: Urinary tract infection type: site unspecified Hematuria presence: with hematuria Qualified Code(s): N39.0 - Urinary tract infection, site not specified; R31.9 - Hematuria, unspecified; R31.9 - Hematuria, unspecified Is this a current diagnosis for this admission?: Yes Plan: Cultures positive for E. coli Started ciprofloxacin
[2018-03-07] MEDS ORDERED: IRON SUCROSE COMPLEX 300 MG in NORMAL SALINE 250 ML IV ONE (16:00)
[2018-03-07 19:07] LABS: ABSOLUTE BASOPHILS # (AUTO) 0.1 10^3/uL (0.0-0.2); ABSOLUTE EOSINOPHILS # (AUTO) 0.1 10^3/uL (0.0-0.6); ABSOLUTE LYMPHOCYTES (AUTO) 1.2 10^3/uL (0.5-4.7); ABSOLUTE MONOCYTES (AUTO) 0.6 10^3/uL (0.1-1.4); ABSOLUTE NEUT (AUTO) 7.2 10^3/uL (1.7-8.2); BASOPHILS % (AUTO) 0.6 % (0-2); EOSINOPHILS % (AUTO) 1.5 % (0-6); HEMATOCRIT 24.8 % (36.0-47.0); HEMOGLOBIN 8.2 g/dL (12.0-15.5); LYMPHOCYTES % (AUTO) 13.3 % (13-45); MEAN CORPUSCULAR HEMOGLOBIN 27.8 pg (27.0-33.4); MEAN CORPUSCULAR HGB CONC 33.2 g/dL (32.0-36.0); MEAN CORPUSCULAR VOLUME 84 fl (80-97); MONOCYTES % (AUTO) 6.2 % (3-13); PLATELET COUNT 261 10^3/uL (150-450); RED BLOOD COUNT 2.96 10^6/uL (3.72-5.28); RED CELL DISTRIBUTION WIDTH 16.2 % (11.5-14.0); SEGMENTED NEUTROPHILS % (AUTO) 78.4 % (42-78); TOTAL CELLS COUNTED % (AUTO) 100 %; WHITE BLOOD COUNT 9.2 10^3/uL (4.0-10.5)
[2018-03-08] MEDS: NORMAL SALINE 1000 ML 1,000 ML IV PRN (05:15)
[2018-03-08 06:21] LABS: ANION GAP 10 (5-19); BLOOD UREA NITROGEN 27 mg/dL (7-20); CALCIUM 7.9 mg/dL (8.4-10.2); CARBON DIOXIDE 16 mmol/L (22-30); CHLORIDE 119 mmol/L (98-107); GLUCOSE 90 mg/dL (75-110); POTASSIUM 4.5 mmol/L (3.6-5.0); SODIUM 144.7 mmol/L (137-145)
[2018-03-08] MEDS: CIPROFLOXACIN HCL 500 MG TABLET PO SCH (09:33)
[2018-03-08 11:42] VITALS: BP 134/78
--- NOTE | 2018-03-08 12:55 | PDOC DISCHARGE SUMMARY ---
General - Admit/Disc Date/PCP Admission Date/Primary Care Provider: 03/04/18 19:26 Discharge Date: 03/08/18 - Discharge Diagnosis (1) Melena Is this a current diagnosis for this admission?: Yes (2) ARF (acute renal failure) Is this a current diagnosis for this admission?: Yes (3) Anemia Is this a current diagnosis for this admission?: Yes (4) Occult blood in stools Is this a current diagnosis for this admission?: Yes (5) UTI (urinary tract infection) Is this a current diagnosis for this admission?: Yes - Additional Information Resuscitation Status: Full Code Discharge Diet: As Tolerated Discharge Activity: Activity As Tolerated Prescriptions: Ciprofloxacin HCl [Cipro 500 mg Tablet] 250 mg PO Q12 #4 tablet Ferrous Sulfate [Albafort] 325 mg PO BID #60 tablet Saccharomyces Boulardii [Florastor] 250 mg PO BID #4 capsule Home Medications: Loperamide HCl [Loperamide] 2 mg PO DAILYP PRN 03/04/18 Ciprofloxacin HCl [Cipro 500 mg Tablet] 250 mg PO Q12 #4 tablet 03/08/18 Ferrous Sulfate [Albafort] 325 mg PO BID #60 tablet 03/08/18 Saccharomyces Boulardii [Florastor] 250 mg PO BID #4 capsule 03/08/18 History of Present Illness History of Present Illness: IVA NELSON is a 78 year old female 78 years old white female presents with generalized weakness and fatigue and frequent urination Hospital Course Hospital Course: Patient had melena and a drop in her hemoglobin and she required transfusion during hospitalization She had an EGD done a colonoscopy done and there was no evidence of upper or lower GI bleeding. She has not had any GI bleeding during hospitalization and her hemoglobin continued to be stable posttransfusion She continued to do well and felt very well and wanted to be discharged to home Her creatinine was also above her baseline and was IV fluid hydration this has resolved Review of urinalysis and urine cultures showed that she was positive for E. coli and was started on ciprofloxacin and significantly improved and she will be discharged on prescription for ciprofloxacin to finish the course of treatment Physical Exam Vital Signs: Temp Pulse Resp BP Pulse Ox 97.8 F 78 17 134/78 H 100 03/08/18 11:30 03/08/18 11:30 03/08/18 11:30 03/08/18 11:30 03/08/18 11:30 Intake & Output 03/07/18 03/08/18 03/09/18 06:59 06:59 06:59 Intake Total 2799 2035 Balance 2799 2035 Weight 179 lb 0.246 oz 182 lb 5.156 oz General appearance: PRESENT: no acute distress, well-developed, well-nourished Head exam: PRESENT: atraumatic, normocephalic Eye exam: PRESENT: conjunctiva pink, EOMI, PERRLA. ABSENT: scleral icterus Mouth exam: PRESENT: moist, tongue midline Neck exam: ABSENT: carotid bruit, JVD, lymphadenopathy, thyromegaly Respiratory exam: PRESENT: clear to auscultation zahira. ABSENT: rales, rhonchi, wheezes Cardiovascular exam: PRESENT: RRR. ABSENT: diastolic murmur, rubs, systolic murmur GI/Abdominal exam: PRESENT: normal bowel sounds, soft. ABSENT: distended, guarding, mass, organolmegaly, rebound, tenderness Neurological exam: PRESENT: alert, awake, oriented to person, oriented to place , oriented to time, oriented to situation, CN II-XII grossly intact. ABSENT: motor sensory deficit Results Laboratory Results: 03/07/18 18:52 03/08/18 04:37 03/07/18 03/07/18 03/08/18 07:55 18:52 04:37 WBC 9.2 RBC 2.96 L Hgb 8.2 L Hct 24.8 L MCV 84 MCH 27.8 MCHC 33.2 RDW 16.2 H Plt Count 261 Seg Neutrophils % 78.4 H Lymphocytes % 13.3 Monocytes % 6.2 Eosinophils % 1.5 Basophils % 0.6 Absolute Neutrophils 7.2 Absolute Lymphocytes 1.2 Absolute Monocytes 0.6 Absolute Eosinophils 0.1 Absolute Basophils 0.1 Sodium 144.7 Potassium 4.5 Chloride 119 H Carbon Dioxide 16 L Anion Gap 10 BUN 27 H Creatinine 1.72 H Est GFR ( Amer) 35 L Est GFR (Non-Af Amer) 29 L Glucose 90 Calcium 7.9 L Blood Type A POSITIVE Antibody Screen NEGATIVE Impressions: Chest X-Ray 03/04/18 14:30 IMPRESSION: No acute cardiopulmonary changes. Qualifiers - * PATIENT BEING DISCHARGED WITH ANY OF THE FOLLOWING DIAGNOSIS: No
== END 2018-03-08 11:30 | disposition home or self-care (01) | DRG 690 ==
LOC: ER 13:54 → EH 19:26 → 4W 03-05 11:39 → 4S 03-05 17:36
PROVIDERS: ADMIT Internal Medicine; ATTEND Internal Medicine
PROC: 0DJ08ZZ Inspection of Upper Intestinal Tract, Via Natural or Artificial Opening Endoscopic (ICD-10-PCS; principal; 2018-03-05 17:00)
PROC: 0DJD8ZZ Inspection of Lower Intestinal Tract, Via Natural or Artificial Opening Endoscopic (ICD-10-PCS; 2018-03-05 17:00)
PROC: 30233N1 Transfusion of Nonautologous Red Blood Cells into Peripheral Vein, Percutaneous Approach (ICD-10-PCS; 2018-03-07)
DX: N39.0 Urinary tract infection, site not specified (principal); K92.1 Melena; N17.9 Acute kidney failure, unspecified; D64.9 Anemia, unspecified; E87.5 Hyperkalemia; E86.0 Dehydration; R31.9 Hematuria, unspecified; I12.9 Hypertensive chronic kidney disease with stage 1 through stage 4 chronic kidney disease, or unspecified chronic kidney disease; N18.3 Chronic kidney disease, stage 3 (moderate); R62.7 Adult failure to thrive; B96.20 Unspecified Escherichia coli [E. coli] as the cause of diseases classified elsewhere
CPT/HCPCS: 36415; 36430; 43235; 45378; 71046; 80048; 80053; 81001; 82140; 82272; 82607; 82728; 82746; 83540; 83550; 83690; 84484; 85025; 85045; 86850; 86900; 86901; 86920; 87040; 87086; 87088; 87186; 99285; J0171; J0696; J1200; J1610; J1756; J2250; J2310; J2405; J3010; J3490; J7030; J7050; J7120; P9016

== ENCOUNTER 2018-04-21 10:35 | Emergency (ER) | payer MEDICARE ==
[2018-04-21 10:48] VITALS: BP 99/74
--- NOTE | 2018-04-21 11:14 | ER Document Report ---
ED Skin Rash/Insect Bite/Abscs - General Chief Complaint: Rash Stated Complaint: RASH ON STOMACH Time Seen by Provider: 04/21/18 11:08 Notes: Chief complaint: Left abdominal rash History of complain:( obtained from----patient) 78 years old female presents today with 2-3 day history of left abdominal rash along the dermatomal pattern going just about the umbilicus. But does not cross the midline. Causing pain but no itching. Onset: As above Duration: Last 2-3 days Severity: Moderate Quality: Sharp Context: Shingles Exacerbating factor and relieving factors: REVIEW OF SYSTEMS: CONSTITUTIONAL : Denies fever, chills, or sweats. Denies recent illness. EENT: Denies eye, ear, throat, or mouth pain or symptoms. Denies nasal or sinus congestion or discharge. Denies throat, tongue, or mouth swelling or difficulty swallowing. CARDIOVASCULAR: Denies chest pain. Denies palpitations or racing or irregular heart beat. Denies ankle edema. RESPIRATORY: Denies cough, cold, or chest congestion. Denies shortness of breath, difficulty breathing, or wheezing. GASTROINTESTINAL: Denies distention. Denies nausea, vomiting, or diarrhea. Denies blood in vomitus, stools, or per rectum. Denies black, tarry stools. Denies constipation. GENITOURINARY: Denies difficulty urinating, painful urination, burning, frequency, blood in urine, or discharge. FEMALE GENITOURINARY: Denies vaginal bleeding, heavy or abnormal periods, irregular periods. Denies vaginal discharge or odor. MUSCULOSKELETAL: Denies back or neck pain or stiffness. Denies joint pain or swelling. SKIN: Denies rash, lesions or sores. HEMATOLOGIC : Denies easy bruising or bleeding. LYMPHATIC: Denies swollen, enlarged glands. NEUROLOGICAL: Denies confusion or altered mental status. Denies passing out or loss of consciousness. Denies dizziness or lightheadedness. Denies headache. Denies weakness or paralysis or loss of use of either side. Denies problems with gait or speech. Denies sensory loss, numbness, or tingling. Denies seizures. PSYCHIATRIC: Denies anxiety or stress. Denies depression, suicidal ideation, or homicidal ideation. ALL OTHER SYSTEMS REVIEWED AND NEGATIVE. PHYSICAL EXAMINATION: GENERAL: Well-appearing, well-nourished and in acute distress. HEAD: Atraumatic, normocephalic. EYES: Pupils equal round and reactive to light, extraocular movements intact, conjunctiva are normal. ENT: Nares patent, oropharynx clear without exudates. Moist mucous membranes. NECK: Normal range of motion, supple without lymphadenopathy LUNGS: Breath sounds clear to auscultation bilaterally and equal. No wheezes rales or rhonchi. HEART: Regular rate and rhythm without murmurs ABDOMEN: Soft, nontender, nondistended abdomen. No guarding, no rebound. No masses appreciated. Examination of genitals-deferred Musculoskeletal: Normal range of motion, no pitting or edema. No cyanosis. NEUROLOGICAL: Cranial nerves grossly intact. Normal speech, normal gait. Normal sensory, motor exams PSYCH: Normal mood, normal affect. SKIN: Skin over the left side of the abdomen over the ninth dermatomal pattern starting from the back showing multiple crops of erythematous papular rash. Dictation was performed using [employer] voice recognition software TRAVEL OUTSIDE OF THE [place] IN LAST 30 DAYS: No - HPI Notes: Dictated - Related Data Allergies/Adverse Reactions: No Known Allergies Allergy (Verified 04/21/18 10:37) Past Medical History - Social History Smoking Status: Never Smoker Cigarette use (# per day): No Chew tobacco use (# tins/day): No Frequency of alcohol use: Rare Drug Abuse: None Lives with: Family Family History: Reviewed & Not Pertinent, Other - Past Medical History Cardiac Medical History: Reports: Hx Hypertension - in hospital Denies: Hx Coronary Artery Disease, Hx Heart Attack Pulmonary Medical History: Denies: Hx Asthma, Hx Bronchitis, Hx COPD, Hx Pneumonia Neurological Medical History: Denies: Hx Cerebrovascular Accident, Hx Seizures Renal/ Medical History: Reports: Hx Renal Insufficiency. Denies: Hx Peritoneal Dialysis Malignancy Medical History: Reports: Hx Cervical Cancer Musculoskeletal Medical History: Reports Hx Arthritis, Reports Hx Musculoskeletal Deformity Past Surgical History: Denies: Hx Hysterectomy - Immunizations Hx Diphtheria, Pertussis, Tetanus Vaccination: No Review of Systems - Review of Systems Notes: Dictated Physical Exam - Vital signs Vitals: Temp Pulse Resp BP Pulse Ox 97.4 F 90 16 99/74 L 100 04/21/18 10:46 04/21/18 10:46 04/21/18 10:46 04/21/18 10:46 04/21/18 10:46 - Notes Notes: Dictated Course - Vital Signs Vital signs: Temp Pulse Resp BP Pulse Ox 97.4 F 90 16 99/74 L 100 04/21/18 10:46 04/21/18 10:46 04/21/18 10:46 04/21/18 10:46 04/21/18 10:46 Discharge - Discharge Clinical Impression: Shingles (herpes zoster) polyneuropathy Condition: Fair Disposition: HOME, SELF-CARE Instructions: Shingles ([facility]) Prescriptions: Gabapentin 300 mg PO TID #90 capsule Hydrocodone/Acetaminophen [Hydrocodon-Acetaminophen 5-325] 1 each PO TID #20 tablet Valacyclovir HCl [Valtrex] 1,000 mg PO BID #20 tablet
== END 2018-04-21 11:09 | disposition home or self-care (01) ==
LOC: ER 10:35
DX: B02.9 Zoster without complications (principal); G62.9 Polyneuropathy, unspecified; I10 Essential (primary) hypertension; Z85.41 Personal history of malignant neoplasm of cervix uteri
CPT/HCPCS: 99282

== ENCOUNTER 2019-05-31 13:32 | Emergency (ER) | payer MEDICARE ==
[2019-05-31] MEDS ORDERED: NORMAL SALINE 1000 ML 1,000 ML IV ONE ×2 (14:24→20:09)
[2019-05-31] MEDS ORDERED: KETOROLAC TROMETHAMINE INJ/PF 30 MG/1 ML SDV IV ONE (14:24)
--- NOTE | 2019-05-31 14:26 | ER Document Report ---
ED Medical Screen (RME) - General Chief Complaint: Back Pain Stated Complaint: BACK PAIN Time Seen by Provider: 05/31/19 14:10 Primary Care Provider: HUBERT CONN MD [Primary Care Provider] - Follow up as needed Notes: Patient is a 79-year-old female who presents the emergency department with a chief complaint of low back pain. Patient also has felt nauseous and vomited yesterday. Her symptoms started about 3 days ago. Patient states that it hurts when she walks. She denies any fever, but states that she has felt generally unwell. Patient has history of urinary tract infections in the past. Denies any other past medical history. Exam: Tenderness to mid lower back. Soft nontender abdomen. I have greeted and performed a rapid initial assessment of this patient. A comprehensive ED assessment and evaluation of the patient, analysis of test results and completion of medical decision making process will be conducted by an additional ED providers. TRAVEL OUTSIDE OF THE [place] IN LAST 30 DAYS: No - Related Data Allergies/Adverse Reactions: No Known Allergies Allergy (Verified 04/21/18 10:37) Past Medical History - Social History Family history: CAD, CVA - Past Medical History Cardiac Medical History: Reports: Hx Hypertension - in hospital Denies: Hx Coronary Artery Disease, Hx Heart Attack Pulmonary Medical History: Denies: Hx Asthma, Hx Bronchitis, Hx COPD, Hx Pneumonia Neurological Medical History: Denies: Hx Cerebrovascular Accident, Hx Seizures Renal/ Medical History: Reports: Hx Renal Insufficiency. Denies: Hx Peritoneal Dialysis Malignancy Medical History: Reports: Hx Cervical Cancer Musculoskeltal Medical History: Reports Hx Arthritis, Reports Hx Musculoskeletal Deformity Past Surgical History: Denies: Hx Hysterectomy - Immunizations Hx Diphtheria, Pertussis, Tetanus Vaccination: No Physical Exam - Vital signs Vitals: Temp Pulse Resp BP Pulse Ox 97.8 F 98 18 105/68 97 05/31/19 13:37 05/31/19 13:37 05/31/19 13:37 05/31/19 13:37 05/31/19 13:37 Course - Vital Signs Vital signs: Temp Pulse Resp BP Pulse Ox 97.8 F 98 18 105/68 97 05/31/19 13:37 05/31/19 13:37 05/31/19 13:37 05/31/19 13:37 05/31/19 13:37 Doctor's Discharge - Discharge Referrals: HUBERT CONN MD [Primary Care Provider] - Follow up as needed
[2019-05-31 14:53] LABS: ABSOLUTE BASOPHILS # (AUTO) 0.1 10^3/uL (0.0-0.2); ABSOLUTE EOSINOPHILS # (AUTO) 0.1 10^3/uL (0.0-0.6); ABSOLUTE LYMPHOCYTES (AUTO) 1.4 10^3/uL (0.5-4.7); ABSOLUTE NEUT (AUTO) 5.4 10^3/uL (1.7-8.2); HEMOGLOBIN 11.2 g/dL (12.0-15.5); LYMPHOCYTES % (AUTO) 18.5 % (13-45); TOTAL CELLS COUNTED % (AUTO) 100 %; WHITE BLOOD COUNT 7.3 10^3/uL (4.0-10.5)
[2019-05-31 14:57] LABS: ABSOLUTE MONOCYTES (AUTO) 0.3 10^3/uL (0.1-1.4); BASOPHILS % (AUTO) 1.2 % (0-2); EOSINOPHILS % (AUTO) 1.6 % (0-6); HEMATOCRIT 34.3 % (36.0-47.0); MEAN CORPUSCULAR HEMOGLOBIN 30.1 pg (27.0-33.4); MEAN CORPUSCULAR HGB CONC 32.6 g/dL (32.0-36.0); MEAN CORPUSCULAR VOLUME 92 fl (80-97); MONOCYTES % (AUTO) 4.6 % (3-13); PLATELET COUNT 180 10^3/uL (150-450); RED BLOOD COUNT 3.72 10^6/uL (3.72-5.28); RED CELL DISTRIBUTION WIDTH 14.2 % (11.5-14.0); SEGMENTED NEUTROPHILS % (AUTO) 74.1 % (42-78)
[2019-05-31 15:11] LABS: ALBUMIN 4.6 g/dL (3.5-5.0); ALKALINE PHOSPHATASE 94 U/L (38-126); ANION GAP 12 (5-19); ASPARTATE AMINO TRANSFERASE 17 U/L (14-36); BILIRUBIN,DIRECT 0.2 mg/dL (0.0-0.4); BILIRUBIN,TOTAL 0.6 mg/dL (0.2-1.3); BLOOD UREA NITROGEN 61 mg/dL (7-20); CALCIUM 9.1 mg/dL (8.4-10.2); CARBON DIOXIDE 16 mmol/L (22-30); CHLORIDE 113 mmol/L (98-107); GLUCOSE 100 mg/dL (75-110); POTASSIUM 5.1 mmol/L (3.6-5.0); TOTAL PROTEIN 8.2 g/dL (6.3-8.2)
[2019-05-31] MEDS ORDERED: KETOROLAC TROMETHAMINE INJ/PF 30 MG/1 ML SDV ONE (17:15)
[2019-05-31 19:22] LABS: APPEARANCE,URINE CLOUDY; BILIRUBIN,URINE SMALL (NEGATIVE); COLOR,URINE AMBER; GLUCOSE, URINE NEGATIVE (NEGATIVE); KETONES,URINE NEGATIVE (NEGATIVE); PROTEIN,URINE >=500 mg/dL (NEGATIVE); URINE SPECIFIC GRAVITY 1.013
[2019-05-31] MEDS ORDERED: CEFTRIAXONE 1 GM/D5W RTU 1 GM/50 ML RTUPB IV ONE (20:09)
[2019-05-31] MEDS ORDERED: ONDANSETRON ODT 4 MG TAB (6 TAB/ER DISP) PO PRN (20:25)
--- NOTE | 2019-05-31 20:25 | ER Document Report ---
ED General - General Chief Complaint: Back Pain Stated Complaint: BACK PAIN Time Seen by Provider: 05/31/19 14:10 Primary Care Provider: HUBERT CONN MD [NO LOCAL MD] - Follow up as needed TRAVEL OUTSIDE OF THE [place] IN LAST 30 DAYS: No - HPI Notes: Patient is a 79-year-old female who presents to the emergency department for evaluation of lower back pain. Is been going on for the last several days. She states that she had 3 episodes of yellow emesis yesterday. She is been keeping fluids down today without any difficulties. No fevers or chills. She has chronic urinary incontinence, states she wears "diaper" to bed at night. She is still urinating, states she always has some dysuria, for which she is seeing a urologist. - Related Data Allergies/Adverse Reactions: No Known Allergies Allergy (Verified 04/21/18 10:37) Past Medical History - General Information source: Patient - Social History Smoking Status: Never Smoker Family History: Reviewed & Not Pertinent, Other Patient has suicidal ideation: No Patient has homicidal ideation: No - Past Medical History Cardiac Medical History: Reports: Hx Hypertension - in hospital Denies: Hx Coronary Artery Disease, Hx Heart Attack Pulmonary Medical History: Denies: Hx Asthma, Hx Bronchitis, Hx COPD, Hx Pneumonia Neurological Medical History: Denies: Hx Cerebrovascular Accident, Hx Seizures Renal/ Medical History: Reports: Hx Renal Insufficiency. Denies: Hx Peritoneal Dialysis Malignancy Medical History: Reports: Hx Cervical Cancer Musculoskeletal Medical History: Reports Hx Arthritis, Reports Hx Musculoskeletal Deformity Past Surgical History: Denies: Hx Hysterectomy - Immunizations Hx Diphtheria, Pertussis, Tetanus Vaccination: No Review of Systems - Review of Systems Constitutional: No symptoms reported EENT: No symptoms reported Cardiovascular: No symptoms reported Respiratory: No symptoms reported Gastrointestinal: See HPI Genitourinary: See HPI Musculoskeletal: See HPI Skin: No symptoms reported Neurological/Psychological: No symptoms reported Physical Exam - Vital signs Vitals: Temp Pulse Resp BP Pulse Ox 97.8 F 98 18 105/68 97 05/31/19 13:37 05/31/19 13:37 05/31/19 13:37 05/31/19 13:37 05/31/19 13:37 - Notes Notes: Vital signs reviewed, please refer to chart. Head is normocephalic, atraumatic. Pupils equal round, reactive to light. Neck is supple without meningismus. Heart is regular rate and rhythm. Lungs are clear to auscultation bilaterally. Abdomen is soft, nontender, normoactive bowel sounds throughout. CVA tende rness. Patient of the spine yields no midline tenderness step-off. She has some paraspinal musculature tenderness throughout the lumbar spine. Extremities without cyanosis, clubbing. Posterior calves are nontender. Peripheral pulses are equal. Skin is warm and dry. Patient is awake, alert, neurological exam is nonfocal. Course - Re-evaluation Re-evalutation: 05/31/19 20:22 Presents to the emergency department for evaluation. She had lab work obtained. Her urine revealed signs of infection. She also has abnormal renal function. She has a history of CKD, the last creatinine I have is over a year ago. I did advise the patient that she should likely stay in the hospital. Did receive IV hydration, IV antibiotics, but the patient refuses. We talked about this at length, she states she will return if she feels worse, but would prefer to have go home at this time. I will send her home with a prescription for Keflex after receiving 1 g of Rocephin here in the emergency department. She will be given a lab slip to have her basic metabolic panel checked on Friday. She is to follow-up with her primary care physician this week. She understands that she can return at anytime if she changes her mind regarding admission, or if she develops any new or worsening symptoms. Pending was discharged AGAINST MEDICAL ADVICE. - Vital Signs Vital signs: Temp Pulse Resp BP Pulse Ox 97.8 F 98 18 105/68 97 05/31/19 13:37 05/31/19 13:37 05/31/19 13:37 05/31/19 13:37 05/31/19 13:37 - Laboratory Result Diagrams: 05/31/19 14:37 05/31/19 14:37 Laboratory results interpreted by me: 05/31/19 05/31/19 05/31/19 14:37 14:37 18:30 Hgb 11.2 L Hct 34.3 L RDW 14.2 H Potassium 5.1 H Chloride 113 H Carbon Dioxide 16 L BUN 61 H Creatinine 3.21 H Est GFR ( Amer) 17 L Est GFR (MDRD) Non-Af 14 L Urine Protein >=500 H Urine Blood LARGE H Urine Bilirubin SMALL H Urine Urobilinogen 8.0 H Leukocyte Esterase Rfl LARGE H Discharge - Discharge Clinical Impression: Acute kidney injury, Urinary tract infection Condition: Stable Disposition: AGAINST MEDICAL ADVICE Instructions: Cephalexin ([facility]), Urinary Tract Infection ([facility]) Additional Instructions: You have elected to leave AGAINST MEDICAL ADVICE. Please start your antibiotic tomorrow morning. Have your blood drawn on Friday, and follow-up with your primary care physician this week. If you develop fevers, vomiting, any other worsening symptoms, or if you change your mind regarding admission, please return to the emergency department for reevaluation. Prescriptions: Cephalexin Monohydrate [Keflex 500 mg Capsule] 500 mg PO QID #20 capsule Forms: Follow-Up Laboratory Testing Referrals: HUBERT CONN MD [NO LOCAL MD] - Follow up as needed
[2019-05-31 20:42] VITALS: BP 113/64
== END 2019-05-31 20:52 | disposition left against medical advice (07) ==
LOC: ER 13:32
DX: N39.0 Urinary tract infection, site not specified (principal); N17.9 Acute kidney failure, unspecified; M54.5 Low back pain; R32 Unspecified urinary incontinence; R30.0 Dysuria; I10 Essential (primary) hypertension; Z85.41 Personal history of malignant neoplasm of cervix uteri; Z53.20 Procedure and treatment not carried out because of patient's decision for unspecified reasons
CPT/HCPCS: 99283; 96361; 96375; 96365; 36415; 87086; 85025; 87088; 80053; 81001; J1885; J7030; J0696; A9270; 87186

== ENCOUNTER → 2019-06-02 | Outpatient (CLI) | payer MEDICARE ==
[2019-06-02 09:43] LABS: ANION GAP 13 (5-19); BLOOD UREA NITROGEN 58 mg/dL (7-20); CALCIUM 8.4 mg/dL (8.4-10.2); CARBON DIOXIDE 14 mmol/L (22-30); CHLORIDE 117 mmol/L (98-107); GLUCOSE 105 mg/dL (75-110); POTASSIUM 4.9 mmol/L (3.6-5.0)
== END ==
LOC: LAB 09:00
PROVIDERS: ATTEND Emergency Medicine
DX: N17.9 Acute kidney failure, unspecified (principal)
CPT/HCPCS: 36415; 80048

== ENCOUNTER 2019-06-15 14:03 | Inpatient (IN) | payer MEDICARE ==
--- NOTE | 2019-06-15 14:33 | ER Document Report ---
ED Medical Screen (RME) - General Chief Complaint: Back Pain Stated Complaint: BACK PAIN/POSSIBLE UTI Time Seen by Provider: 06/15/19 14:21 TRAVEL OUTSIDE OF THE [place] IN LAST 30 DAYS: No - HPI Notes: 06/15/19 14:31 79-year-old female to the emergency department with complaints of persistent right flank pain for the past 2 to 3 weeks. She states that she has had some nausea and a couple episodes of vomiting. She states that she is seen at the end of May and diagnosed with a urinary tract infection and had acute kidney injury. She states that she was asked to stay for treatment but she left. She states that she is finished a course of antibiotics but has not gotten better. She denies any fevers, chills, chest pain, shortness of breath, diarrhea, headache. She denies any hematuria. She does not have a study primary care physician and has not followed up about her kidney dysfunction. I performed a brief medical screening exam on this patient and determined he needs further management and evaluation by means at ER provider. I placed initial orders to help expedite in his treatment plan today to include lab work and medications. - Related Data Allergies/Adverse Reactions: No Known Allergies Allergy (Verified 04/21/18 10:37) Past Medical History - Social History Chew tobacco use (# tins/day): No Frequency of alcohol use: None Drug Abuse: None Family history: CAD, CVA - Past Medical History Cardiac Medical History: Reports: Hx Hypertension - in hospital Denies: Hx Coronary Artery Disease, Hx Heart Attack Pulmonary Medical History: Denies: Hx Asthma, Hx Bronchitis, Hx COPD, Hx Pneumonia Neurological Medical History: Denies: Hx Cerebrovascular Accident, Hx Seizures Renal/ Medical History: Reports: Hx Renal Insufficiency. Denies: Hx Peritoneal Dialysis Malignancy Medical History: Reports: Hx Cervical Cancer Musculoskeltal Medical History: Reports Hx Arthritis, Reports Hx Musculoskeletal Deformity Past Surgical History: Denies: Hx Hysterectomy - Immunizations Hx Diphtheria, Pertussis, Tetanus Vaccination: No Physical Exam - Vital signs Vitals: Temp Pulse Resp BP Pulse Ox 97.7 F 102 H 18 116/82 98 06/15/19 14:08 06/15/19 14:08 06/15/19 14:08 06/15/19 14:08 06/15/19 14:08 Course - Vital Signs Vital signs: Temp Pulse Resp BP Pulse Ox 97.7 F 102 H 18 116/82 98 06/15/19 14:08 06/15/19 14:08 06/15/19 14:08 06/15/19 14:08 06/15/19 14:08
[2019-06-15 15:24] LABS: ABSOLUTE BASOPHILS # (AUTO) 0.1 10^3/uL (0.0-0.2); ABSOLUTE EOSINOPHILS # (AUTO) 0.1 10^3/uL (0.0-0.6); ABSOLUTE LYMPHOCYTES (AUTO) 1.2 10^3/uL (0.5-4.7); ABSOLUTE MONOCYTES (AUTO) 0.5 10^3/uL (0.1-1.4); BASOPHILS % (AUTO) 1.2 % (0-2); EOSINOPHILS % (AUTO) 2.1 % (0-6); HEMATOCRIT 32.4 % (36.0-47.0); HEMOGLOBIN 10.8 g/dL (12.0-15.5); LYMPHOCYTES % (AUTO) 17.6 % (13-45); MEAN CORPUSCULAR HEMOGLOBIN 30.9 pg (27.0-33.4); MEAN CORPUSCULAR HGB CONC 33.4 g/dL (32.0-36.0); MEAN CORPUSCULAR VOLUME 92 fl (80-97); MONOCYTES % (AUTO) 7.8 % (3-13); PLATELET COUNT 170 10^3/uL (150-450); RED CELL DISTRIBUTION WIDTH 14.4 % (11.5-14.0); SEGMENTED NEUTROPHILS % (AUTO) 71.3 % (42-78); TOTAL CELLS COUNTED % (AUTO) 100 %
--- NOTE | 2019-06-15 15:29 | RADIOLOGY REPORT (SQ) ---
EXAM DESCRIPTION: [employer] COMPLETED DATE/TIME: 06/15/2019 3:01 pm REASON FOR STUDY: right flank pain COMPARISON: CT of the abdomen and pelvis without contrast from 03/13/2016. TECHNIQUE: Dynamic and static grayscale images acquired of the kidneys and bladder and recorded on P ACS. Additional selected color Doppler and spectral images recorded. LIMITATIONS: None. FINDINGS: RIGHT KIDNEY: The right kidney measures 9 cm in length. There is moderate hydronephrosis . LEFT KIDNEY: The left kidney measures 9.9 cm in length. There is no hydronephrosis. BLADDER: Unable to visualize the urinary bladder. OTHER FINDINGS: No other finding. IMPRESSION: Moderate right hydronephrosis. TECHNICAL DOCUMENTATION: JOB ID: [id number] [email or web address]- All Rights Reserved Reading location - IP/workstation name: [email or web address]
[2019-06-15 15:52] LABS: ALKALINE PHOSPHATASE 85 U/L (38-126); ANION GAP 13 (5-19); ASPARTATE AMINO TRANSFERASE 16 U/L (14-36); BILIRUBIN,DIRECT 0.1 mg/dL (0.0-0.4); BILIRUBIN,TOTAL 0.4 mg/dL (0.2-1.3); BLOOD UREA NITROGEN 51 mg/dL (7-20); CALCIUM 8.4 mg/dL (8.4-10.2); CARBON DIOXIDE 16 mmol/L (22-30); CHLORIDE 111 mmol/L (98-107); GLUCOSE 101 mg/dL (75-110); POTASSIUM 4.3 mmol/L (3.6-5.0); TOTAL PROTEIN 7.6 g/dL (6.3-8.2)
[2019-06-15] MEDS ORDERED: NORMAL SALINE 1000 ML 1,000 ML IV ONE (17:39)
[2019-06-15] MEDS ORDERED: PIPERACILLIN/TAZOBACTAM 3.375 GM VIAL IV ONE (17:40)
--- NOTE | 2019-06-15 17:47 | ER Document Report ---
ED General - General Chief Complaint: Back Pain Stated Complaint: BACK PAIN/POSSIBLE UTI Time Seen by Provider: 06/15/19 14:21 TRAVEL OUTSIDE OF THE [place] IN LAST 30 DAYS: No - HPI Notes: 79-year-old female presenting with a chief complaint of right flank pain and general malaise. Patient is an elderly female who is had a history of chronic renal insufficiency with episodes of acute kidney injury. She has had chronic recurrent UTIs and has had bilateral hydronephrosis possibly related to old XRT that she received greater than 40 years ago as treatment for cervical CA. The patient was seen here 1 week ago with evidence of urinary tract infection and admission was recommended but declined by the patient and she subsequently signed herself out AMA. She is taken a one-week course of oral Keflex at home. She says she is no better and is now having intermittent right flank pain primarily when she walks. She is felt chilled intermittently but is not aware of running a fever. She has had some nausea with no vomiting. No dysuria is reported but she says she "feels like" she probably has persistent urinary tract infection. Patient currently has no primary care physician. She states she is seeing a urologist in the past but her urologist as moved away from the community and she was not referred elsewhere for follow-up by urologist. - Related Data Allergies/Adverse Reactions: No Known Allergies Allergy (Verified 04/21/18 10:37) Past Medical History - General Information source: Patient, Relative - Social History Smoking Status: Never Smoker Chew tobacco use (# tins/day): No Frequency of alcohol use: None Drug Abuse: None Family History: Reviewed & Not Pertinent, Other Patient has suicidal ideation: No Patient has homicidal ideation: No - Past Medical History Cardiac Medical History: Reports: Hx Hypertension Denies: Hx Coronary Artery Disease, Hx Heart Attack Pulmonary Medical History: Denies: Hx Asthma, Hx Bronchitis, Hx COPD, Hx Pneumonia Neurological Medical History: Denies: Hx Cerebrovascular Accident, Hx Seizures Renal/ Medical History: Reports: Hx Renal Insufficiency, Other - Past history of cervical CA treated with XRT about 40 years ago.. Denies: Hx Peritoneal Dialysis Malignancy Medical History: Reports: Hx Cervical Cancer Musculoskeletal Medical History: Reports Hx Arthritis, Reports Hx Musculoskeletal Deformity Past Surgical History: Denies: Hx Hysterectomy - Immunizations Hx Diphtheria, Pertussis, Tetanus Vaccination: No Review of Systems - Review of Systems Notes: Constitutional: As per HPI. HENT: Negative for sore throat. Eyes: Negative for visual changes. Cardiovascular: Negative for chest pain. Respiratory: Negative for shortness of breath. Gastrointestinal: Mild nausea. Negative for abdominal pain, vomiting or diarrhea. Genitourinary: As per HPI. Musculoskeletal: Negative for back pain. Skin: Negative for rash. Neurological: Negative for headaches, weakness or numbness. 10 point ROS negative except as marked above and in HPI. Physical Exam - Vital signs Vitals: Temp Pulse Resp BP Pulse Ox 97.7 F 102 H 18 116/82 98 06/15/19 14:08 06/15/19 14:08 06/15/19 14:08 06/15/19 14:08 06/15/19 14:08 Notes: GENERAL: Elderly female appearing in no acute distress. SKIN: Good turgor no rashes. HEAD: Normocephalic atraumatic. EYES: PERRLA. EOMI. Conjunctivae and sclerae clear. EARS: CANALS AND TMS CLEAR. NOSE: CLEAR. MOUTH: Moist mucosa. Edentulous. No stridor or edema. No drooling. NECK: Supple. No masses or thyromegaly. No adenopathy. Carotids 2+ without bruits. No JVD. BACK: 2+ dorsal kyphosis. Symmetrical without tenderness. CHEST: Respirations unlabored. Breath sounds clear and symmetrical. HEART: Regular rhythm. No murmur gallop or rub. ABDOMEN: Soft nontender without masses, organomegaly or rebound. Bowel sounds normally active. No bruits. GENITALIA: Deferred. EXTREMITIES: Mild degenerative changes in her phalangeal joints of both hands. No edema. No calf tenderness. Cap refill less than 1.5 seconds. Dorsalis pedis and posterior tibial pulses 3+ and symmetrical. NEUROLOGICAL: GCS 15. Alert and oriented x3. Normal gait. Fluent speech. Cranial nerves II through XII intact. Sensorimotor and cerebellar normal. Normal tone. Psychiatric: Normal affect. Course - Re-evaluation Re-evalutation: 06/15/19 17:51 Patient appears to have persistent urinary tract infection, dehydration and acute kidney injury. We will get an EKG and give the patient some IV hydration. I am waiting for urinalysis to come back. I will go ahead and empirically treat her with some Zosyn IV. She will require admission after the urinalysis has been reported. We will also check a venous blood gas and a lactate level. Renal ultrasound has been obtained and shows persistent hydronephrosis on the right. 06/15/19 20:38 Clinical findings are consistent with acute kidney injury, dehydration and urinary tract infection. Patient is received IV Zosyn. She will be admitted to the hospitalist service to the medical floor. - Vital Signs Vital signs: Temp Pulse Resp BP Pulse Ox 98.4 F 102 H 22 H 143/82 H 100 06/15/19 18:31 06/15/19 14:08 06/15/19 20:00 06/15/19 20:00 06/15/19 20:00 - Laboratory Result Diagrams: 06/15/19 15:05 06/15/19 15:05 Laboratory results interpreted by me: 06/15/19 06/15/19 06/15/19 15:05 15:05 18:35 RBC 3.50 L Hgb 10.8 L Hct 32.4 L RDW 14.4 H VBG pH 7.21 L VBG HCO3 16.8 L Chloride 111 H Carbon Dioxide 16 L BUN 51 H Creatinine 3.13 H Est GFR ( Amer) 17 L Est GFR (MDRD) Non-Af 14 L Discharge - Discharge Clinical Impression: Acute kidney injury Urinary tract infection Qualifiers: Urinary tract infection type: acute pyelonephritis Qualified Code(s): N10 - Acute pyelonephritis Condition: Serious Disposition: ADMITTED INPATIENT Admitting Provider: Isabela (Hospitalist) Unit Admitted: Medical Floor
--- NOTE | 2019-06-15 18:42 | RADIOLOGY REPORT (SQ) ---
EXAM DESCRIPTION: CHEST SINGLE VIEW COMPLETED DATE/TIME: 06/15/2019 6:01 pm REASON FOR STUDY: HOANG COMPARISON: 03/04/2018 TECHNIQUE: Single frontal radiographic view of the chest acquired. NUMBER OF VIEWS: One view. LIMITATIONS: None. FINDINGS: LUNGS AND PLEURA: No pneumothorax. No consolidation or pleural effusion. MEDIASTINUM AND HILAR STRUCTURES: Stable. HEART AND VASCULAR STRUCTURES: Stable. BONES: No acute findings. HARDWARE: None in the chest. OTHER: No other significant finding. IMPRESSION: NO ACUTE FINDINGS. TECHNICAL DOCUMENTATION: JOB ID: [id number] [employer]- All Rights Reserved Reading location - IP/workstation name: [email or web address]
[2019-06-15 18:49] LABS: VENOUS BLOOD BASE EXCESS -10.5 mmol/L; VENOUS BLOOD HCO3 16.8 mmol/L (20-32); VENOUS BLOOD PCO2 42.5 mmHg (35-63); VENOUS BLOOD PH 7.21 (7.30-7.42)
[2019-06-15 20:03] LABS: APPEARANCE,URINE TURBID; BILIRUBIN,URINE NEGATIVE (NEGATIVE); GLUCOSE, URINE NEGATIVE (NEGATIVE); KETONES,URINE NEGATIVE (NEGATIVE); PROTEIN,URINE NEGATIVE (NEGATIVE); UROBILINOGEN,URINE NEGATIVE mg/dL (<2.0)
[2019-06-15 20:04] LABS: COLOR,URINE LIGHT YELLOW
[2019-06-15] MEDS ORDERED: TEMAZEPAM 7.5 MG CAPSULE PO PRN (21:55)
[2019-06-15] MEDS ORDERED: MAGNESIUM HYDROXIDE SUSP 30 ML UDCUP PO PRN (21:55)
[2019-06-15] MEDS ORDERED: MAG HYDROX/AL HYDROX/SIMETH SUSP 30 ML UDCUP PO PRN (21:55)
[2019-06-15] MEDS ORDERED: PROMETHAZINE HCL INJ 25 MG/1 ML VIAL IV PRN (21:55)
[2019-06-15] MEDS ORDERED: ACETAMINOPHEN 325 MG TABLET PO PRN (21:58)
[2019-06-15] MEDS ORDERED: NALBUPHINE HCL INJ 10 MG/1 ML AMPULE IV PRN ×3 (21:58→22:15)
[2019-06-15] MEDS: HEPARIN SOD (PORCINE) 5,000 UNIT/ML 1 ML VIAL SUBCUT SCH (22:00)
[2019-06-15] MEDS ORDERED: FAMOTIDINE 20 MG TABLET PO SCH (22:00)
--- NOTE | 2019-06-15 23:48 | PDOC H&P ---
History of Present Illness Admission Date/PCP: 06/15/2019 20:40 No local PCP Patient complains of: Right flank pain History of Present Illness: IVA NELSON is a 79 year old female who presented to the emergency room with a one-week history of right flank pain. She admits being seen in the emergency room 2 weeks ago and leaving AMA at that time after being diagnosed with a urinary tract infection. She did receive a one-week course of oral Keflex and completed the medication with no improvement. Over the week her right flank pain has increased in intensity and is now a moderate intermittent deep aching pain in the right posterior flank without radiation, worsened by walking and a ctivity and relieved by rest. She admits he accompanying symptom of generalized malaise. She admits associated mild nausea and occasional chills but denies fever or diaphoresis. She denies other associated or accompanying signs and symptoms. She admits prior similar episodes with urinary tract infections. She has not identified any additional aggravating or ameliorating factors for her right flank pain. In the emergency room she was again to found to have pyuria with a normal white blood count and a normal serum lactate. Her hemoglobin was noted to be 10.8 consistent with her prior readings. Her creatinine has increased from 1.7 up to 3.13 over the week interval. She was subsequently admitted to the hospital for further evaluation and treatment. Past Medical History Cardiac Medical History: Reports: Hypertension Denies: Coronary Artery Disease, Myocardial Infarction Pulmonary Medical History: Denies: Asthma, Bronchitis, Chronic Obstructive Pulmonary Disease (COPD), Pneumonia EENT Medical History: Denies: Cataracts, Ears - Hearing aids Neurological Medical History: Denies: Hemorrhagic CVA, Ischemic CVA, Seizures Endocrine Medical History: Denies: Diabetes Mellitus Type 1, Diabetes Mellitus Type 2, Hyperthyroidism, Hypothyroidism, Obesity Renal/ Medical History: Reports: Chronic Kidney Disease, Other - Past history of cervical CA treated with XRT about 40 years ago. Denies: Nephrolithiasis Malignancy Medical History: Reports: Cervical Cancer GI Medical History: Denies: Cirrhosis, Crohn's Disease, Hepatitis, Ulcerative Colitis Musculoskeltal Medical History: Reports: Arthritis Denies: Gout Skin Medical History: Denies: Eczema, Psoriasis Psychiatric Medical History: Denies: Alcohol Dependency, Substance Abuse, Tobacco Dependency Traumatic Medical History: Reports: None Hematology: Reports: Anemia Denies: Bleeding Tendencies Infectious Medical History: Reports: None Past Surgical History Past Surgical History: Reports: None Social History Information Source: Patient Lives with: Friend Smoking Status: Never Smoker Electronic Cigarette use?: No Frequency of Alcohol Use: Rare Hx Recreational Drug Use: No Drugs: None Hx Prescription Drug Abuse: No - Advance Directive Resuscitation Status: Full Code Surrogate healthcare decision maker:: Fidel Villalba Family History Family History: CAD, DM, Other - Gallbladder disease Parental Family History Reviewed: Yes Children Family History Reviewed: No Sibling(s) Family History Reviewed.: Yes Medication/Allergy Home Medications: No Home Medications 06/15/19 Allergies/Adverse Reactions: No Known Allergies Allergy (Verified 06/15/19 22:19) Review of Systems Constitutional: PRESENT: as per HPI, chills, other - Generalized malaise. ABSENT: fever(s) Eyes: ABSENT: visual disturbances, other - Eye pain Ears: ABSENT: hearing changes, other - Ear pain Nose, Mouth, and Throat: ABSENT: headache(s), mouth pain, sore throat Cardiovascular: ABSENT: chest pain, palpitations Respiratory: ABSENT: cough, dyspnea Gastrointestinal: PRESENT: abdominal pain - Right posterior flank pain, nausea. ABSENT: constipation, diarrhea, vomiting Genitourinary: PRESENT: other - Right posterior flank pain. ABSENT: difficulty urinating, dysuria, hematuria Musculoskeletal: PRESENT: back pain - Right posterior flank pain. ABSENT: joint swelling, muscle weakness Integumentary: ABSENT: pruritus, rash Neurological: ABSENT: confusion, convulsions, focal weakness, memory loss, syncope Psychiatric: ABSENT: anxiety, depression Endocrine: ABSENT: cold intolerance, heat intolerance Hematologic/Lymphatic: ABSENT: easy bleeding, easy bruising Allergic/Immunologic: ABSENT: seasonal rhinorrhea Physical Exam Vital Signs: Temp Pulse Resp BP Pulse Ox 98.4 F 102 H 22 H 143/82 H 100 06/15/19 18:31 06/15/19 14:08 06/15/19 20:00 06/15/19 20:00 06/15/19 20:00 Intake & Output 06/13/19 06/14/19 06/15/19 23:59 23:59 23:59 Intake Total 1000 Balance 1000 Weight 72.575 kg General appearance: PRESENT: no acute distress, cooperative Head exam: PRESENT: atraumatic, normocephalic Eye exam: PRESENT: conjunctiva pink. ABSENT: conjunctival injection, scleral icterus Ear exam: PRESENT: normal external ear exam. ABSENT: bleeding, drainage Mouth exam: PRESENT: dry mucosa, neck supple Neck exam: ABSENT: thyromegaly, tracheal deviation Respiratory exam: PRESENT: clear to auscultation zahira, symmetrical, unlabored Cardiovascular exam: PRESENT: RRR. ABSENT: clicks, gallop, rubs Pulses: PRESENT: normal radial pulses, normal dorsalis pedis pul Vascular exam: PRESENT: normal capillary refill. ABSENT: pallor GI/Abdominal exam: PRESENT: normal bowel sounds, soft, tenderness - Mild right posterior flank tenderness on palpation Rectal exam: PRESENT: deferred Extremities exam: ABSENT: joint swelling, pedal edema Musculoskeletal exam: ABSENT: deformity, dislocation Neurological exam: PRESENT: alert, oriented to person, oriented to place, oriented to time, oriented to situation, CN II-XII grossly intact. ABSENT: motor sensory deficit Psychiatric exam: PRESENT: appropriate affect, normal mood Skin exam: PRESENT: dry, intact, warm. ABSENT: jaundice, rash, urticaria Results Laboratory Results: 06/15/19 15:05 06/15/19 15:05 06/15/19 06/15/19 06/15/19 15:05 15:05 17:30 WBC 7.0 RBC 3.50 L Hgb 10.8 L Hct 32.4 L MCV 92 MCH 30.9 MCHC 33.4 RDW 14.4 H Plt Count 170 Seg Neutrophils % 71.3 VBG pH VBG pCO2 VBG HCO3 VBG Base Excess Sodium 139.8 Potassium 4.3 Chloride 111 H Carbon Dioxide 16 L Anion Gap 13 BUN 51 H Creatinine 3.13 H Est GFR ( Amer) 17 L Glucose 101 Lactic Acid 1.2 Calcium 8.4 Total Bilirubin 0.4 AST 16 Alkaline Phosphatase 85 Total Protein 7.6 Albumin 4.0 Urine Color Urine Appearance Urine pH Ur Specific [place] Urine Protein Urine Glucose (UA) Urine Ketones Urine Blood Urine RBC (Auto) 06/15/19 06/15/19 18:35 19:15 WBC RBC Hgb Hct MCV MCH MCHC RDW Plt Count Seg Neutrophils % VBG pH 7.21 L VBG pCO2 42.5 VBG HCO3 16.8 L VBG Base Excess -10.5 Sodium Potassium Chloride Carbon Dioxide Anion Gap BUN Creatinine Est GFR ( Amer) Glucose Lactic Acid Calcium Total Bilirubin AST Alkaline Phosphatase Total Protein Albumin Urine Color LIGHT YELLOW Urine Appearance TURBID Urine pH 5.0 Ur Specific [place] 1.000 Urine Protein NEGATIVE Urine Glucose (UA) NEGATIVE Urine Ketones NEGATIVE Urine Blood NEGATIVE Urine RBC (Auto) 125 Impressions: Renal Ultrasound 06/15/19 14:29 IMPRESSION: Moderate right hydronephrosis. Chest X-Ray 06/15/19 17:39 IMPRESSION: NO ACUTE FINDINGS. Assessment and Plan - Diagnosis (1) Acute kidney injury superimposed on chronic kidney disease Is this a current diagnosis for this admission?: Yes Plan: Patient will be treated with IV fluids utilizing lactated Ringer's initially at 167 mL/h. Her kidney functions will be followed with daily metabolic profiles. (2) Urinary tract infection Qualifiers: Urinary tract infection type: site unspecified Hematuria presence: without hematuria Qualified Code(s): N39.0 - Urinary tract infection, site not specified Is this a current diagnosis for this admission?: Yes Plan: Patient will be treated with IV fluids and IV antibiotics, initially using broad-spectrum therapy with Zosyn. Antibiotic spectrum will be narrowed based upon culture results. (3) Acute right flank pain Is this a current diagnosis for this admission?: Yes Plan: The patient will be treated with routine symptomatic and supportive cares. She will use Nubain 5 to 10 mg IV every 3 hours as needed for pain utilizing a sliding scale. (4) Anemia in chronic kidney disease Qualifiers: Chronic kidney disease stage: stage 3 (moderate) Qualified Code(s): N18.3 - Chronic kidney disease, stage 3 (moderate); D63.1 - Anemia in chronic kidney disease Is this a current diagnosis for this admission?: Yes Plan: Patient's hemoglobin is stable at 10.8 but will be monitored on a regular basis throughout her hospital course with CBCs. (5) Personal history of malignant neoplasm of cervix uteri Is this a current diagnosis for this admission?: Yes Plan: Given the patient's past history she should follow-up on a regular basis with a urologist/housekeeping cleaner for ongoing monitoring. Patient will be referred at the time of discharge. 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 Patient should follow-up with uro logy/gynecology on a regular basis given her past history. - Time Time Spent with patient: 15-24 minutes Medications reviewed and adjusted accordingly: Yes Anticipated discharge: Home - Inpatient Certification Based on my medical assessment, after consideration of the patient's elvie rbidities, presenting symptoms, or acuity I expect that the services needed warrant INPATIENT care.: Yes I certify that my determination is in accordance with my understanding of Medicare's requirements for reasonable and necessary INPATIENT services [42 CFR 412.3e].: Yes Medical Necessity: Need Close Monitoring Due to Risk of Patient Decompensation, Need For IV Fluids, Need for Pain Control, Need for IV Antibiotics, Risk of Complication if Not Cared For in Hospital
[2019-06-16] MEDS: RINGERS SOLUTION,LACTATED 1,000 ML IV PRN ×2 (01:13→20:46)
[2019-06-16] MEDS: HEPARIN SOD (PORCINE) 5,000 UNIT/ML 1 ML VIAL SUBCUT SCH ×3 (05:49→21:37)
[2019-06-16 07:14] LABS: ANION GAP 10 (5-19); BLOOD UREA NITROGEN 49 mg/dL (7-20); CALCIUM 8.3 mg/dL (8.4-10.2); CARBON DIOXIDE 15 mmol/L (22-30); CHLORIDE 116 mmol/L (98-107); GLUCOSE 79 mg/dL (75-110); POTASSIUM 4.5 mmol/L (3.6-5.0)
[2019-06-16 08:20] LABS: HEMATOCRIT 28.3 % (36.0-47.0); HEMOGLOBIN 9.6 g/dL (12.0-15.5); MEAN CORPUSCULAR HEMOGLOBIN 31.7 pg (27.0-33.4); MEAN CORPUSCULAR HGB CONC 33.8 g/dL (32.0-36.0); MEAN CORPUSCULAR VOLUME 94 fl (80-97); PLATELET COUNT 142 10^3/uL (150-450); RED BLOOD COUNT 3.02 10^6/uL (3.72-5.28); RED CELL DISTRIBUTION WIDTH 14.3 % (11.5-14.0); WHITE BLOOD COUNT 5.9 10^3/uL (4.0-10.5)
[2019-06-16] MEDS: FAMOTIDINE 20 MG TABLET PO SCH (10:14)
[2019-06-16] MEDS: DOCUSATE SODIUM 100 MG CAPSULE PO SCH ×2 (10:14→17:01)
--- NOTE | 2019-06-16 10:43 | PDOC PROGRESS REPORT ---
Subjective Progress Note for:: 06/16/19 Subjective:: IVA NELSON is a 79 year old female who presented to the emergency room with a one-week history of right flank pain. She admits being seen in the emergency room 2 weeks ago and leaving AMA at that time after being diagnosed with a urinary tract infection. She did receive a one-week course of oral Keflex and completed the medication with no improvement. Over the week her right flank pain has increased in intensity and is now a moderate intermittent deep aching pain in the right posterior flank without radiation, worsened by walking and activity and relieved by rest. She admits he accompanying symptom of generalized malaise. She admits associated mild nausea and occasional chills but denies fever or diaphoresis. She denies other associated or accompanying signs and symptoms. She admits prior similar episodes with urinary tract infections. She has not identified any additional aggravating or ameliorating factors for her right flank pain. In the emergency room she was again to found to have pyuria with a normal white blood count and a normal serum lactate. Her hemoglobin was noted to be 10.8 consistent with her prior readings. Her creatinine has increased from 1.7 up to 3.13 over the week interval. She was subsequently admitted to the hospital for further evaluation and treatment. Reason For Visit: ACUTE KIDNEY INJURY ON CHRONIC KIDNEY DISEASE Physical Exam Vital Signs: Temp Pulse Resp BP Pulse Ox 98 F 84 16 146/65 H 100 06/16/19 09:00 06/16/19 09:00 06/16/19 09:00 06/16/19 09:00 06/16/19 09:00 Intake & Output 06/15/19 06/16/19 06/17/19 06:59 06:59 06:59 Intake Total 1000 Balance 1000 Weight 72.575 kg Results Laboratory Results: 06/16/19 04:10 06/16/19 04:10 06/15/19 06/15/19 06/15/19 15:05 15:05 17:30 WBC 7.0 RBC 3.50 L Hgb 10.8 L Hct 32.4 L MCV 92 MCH 30.9 MCHC 33.4 RDW 14.4 H Plt Count 170 Seg Neutrophils % 71.3 VBG pH VBG pCO2 VBG HCO3 VBG Base Excess Sodium 139.8 Potassium 4.3 Chloride 111 H Carbon Dioxide 16 L Anion Gap 13 BUN 51 H Creatinine 3.13 H Est GFR ( Amer) 17 L Glucose 101 Lactic Acid 1.2 Calcium 8.4 Magnesium Total Bilirubin 0.4 AST 16 Alkaline Phosphatase 85 Total Protein 7.6 Albumin 4.0 TSH Urine Color Urine Appearance Urine pH Ur Specific [place] Urine Protein Urine Glucose (UA) Urine Ketones Urine Blood Urine RBC (Auto) 06/15/19 06/15/19 06/16/19 18:35 19:15 04:10 WBC 5.9 RBC 3.02 L Hgb 9.6 L Hct 28.3 L MCV 94 MCH 31.7 MCHC 33.8 RDW 14.3 H Plt Count 142 L Seg Neutrophils % VBG pH 7.21 L VBG pCO2 42.5 VBG HCO3 16.8 L VBG Base Excess -10.5 Sodium Potassium Chloride Carbon Dioxide Anion Gap BUN Creatinine Est GFR ( Amer) Glucose Lactic Acid Calcium Magnesium Total Bilirubin AST Alkaline Phosphatase Total Protein Albumin TSH Urine Color LIGHT YELLOW Urine Appearance TURBID Urine pH 5.0 Ur Specific [place] 1.000 Urine Protein NEGATIVE Urine Glucose (UA) NEGATIVE Urine Ketones NEGATIVE Urine Blood NEGATIVE Urine RBC (Auto) 125 06/16/19 06/16/19 04:10 04:10 WBC RBC Hgb Hct MCV MCH MCHC RDW Plt Count Seg Neutrophils % VBG pH VBG pCO2 VBG HCO3 VBG Base Excess Sodium 141.0 Potassium 4.5 Chloride 116 H Carbon Dioxide 15 L Anion Gap 10 BUN 49 H Creatinine 2.91 H Est GFR ( Amer) 19 L Glucose 79 Lactic Acid Calcium 8.3 L Magnesium 1.7 Total Bilirubin AST Alkaline Phosphatase Total Protein Albumin TSH 0.28 L Urine Color Urine Appearance Urine pH Ur Specific [place] Urine Protein Urine Glucose (UA) Urine Ketones Urine Blood Urine RBC (Auto) Impressions: Renal Ultrasound 06/15/19 14:29 IMPRESSION: Moderate right hydronephrosis. Chest X-Ray 06/15/19 17:39 IMPRESSION: NO ACUTE FINDINGS.
--- NOTE | 2019-06-16 11:00 | PDOC PROGRESS REPORT ---
Subjective Progress Note for:: 06/16/19 Subjective:: IVA NELSON is a 79 year old female who presented to the emergency room with a one-week history of right flank pain. She admits being seen in the emergency room 2 weeks ago and leaving AMA at that time after being diagnosed with a urinary tract infection. She did receive a one-week course of oral Keflex and completed the medication with no improvement. Over the week her right flank pain has increased in intensity and is now a moderate intermittent deep aching pain in the right posterior flank without radiation, worsened by walking and activity and relieved by rest. She admits he accompanying symptom of generalized malaise. She admits associated mild nausea and occasional chills but denies fever or diaphoresis. She denies other associated or accompanying signs and symptoms. She admits prior similar episodes with urinary tract infections. She has not identified any additional aggravating or ameliorating factors for her right flank pain. In the emergency room she was again to found to have pyuria with a normal white blood count and a normal serum lactate. Her hemoglobin was noted to be 10.8 consistent with her prior readings. Her creatinine has increased from 1.7 up to 3.13 over the week interval. She was subsequently admitted to the hospital for further evaluation and treatment. 06/16/2019. The right flank pain improving, patient complaining of diarrhea started 1 day prior to admission, has had 2 episodes of nonbloody watery carla rrhea since admission. She had dinner at [employer] the night before admission, denies any sick contact or recent travel. She has been recently evaluated by urologist for her right hydronephrosis however she was told no intervention needed. Denies any fever, chills, nausea, abdominal pain, chest pain or any shortness of breath. Reason For Visit: ACUTE KIDNEY INJURY ON CHRONIC KIDNEY DISEASE Physical Exam Vital Signs: Temp Pulse Resp BP Pulse Ox 98 F 84 16 146/65 H 100 06/16/19 09:00 06/16/19 09:00 06/16/19 09:00 06/16/19 09:00 06/16/19 09:00 Intake & Output 06/15/19 06/16/19 06/17/19 06:59 06:59 06:59 Intake Total 1000 Balance 1000 Weight 72.575 kg General appearance: PRESENT: no acute distress, well-developed, well-nourished Head exam: PRESENT: atraumatic, normocephalic Respiratory exam: PRESENT: clear to auscultation zahira. ABSENT: rales, rhonchi, wheezes Pulses: PRESENT: normal dorsalis pedis pul GI/Abdominal exam: PRESENT: normal bowel sounds, soft. ABSENT: distended, guarding, mass, organolmegaly, rebound, tenderness Neurological exam: PRESENT: alert, awake, oriented to person, oriented to place, oriented to time, oriented to situation, CN II-XII grossly intact. ABSENT: motor sensory deficit Results Laboratory Results: 06/16/19 04:10 06/16/19 04:10 06/15/19 06/15/19 06/15/19 15:05 15:05 17:30 WBC 7.0 RBC 3.50 L Hgb 10.8 L Hct 32.4 L MCV 92 MCH 30.9 MCHC 33.4 RDW 14.4 H Plt Count 170 Seg Neutrophils % 71.3 VBG pH VBG pCO2 VBG HCO3 VBG Base Excess Sodium 139.8 Potassium 4.3 Chloride 111 H Carbon Dioxide 16 L Anion Gap 13 BUN 51 H Creatinine 3.13 H Est GFR ( Amer) 17 L Glucose 101 Lactic Acid 1.2 Calcium 8.4 Magnesium Total Bilirubin 0.4 AST 16 Alkaline Phosphatase 85 Total Protein 7.6 Albumin 4.0 TSH Urine Color Urine Appearance Urine pH Ur Specific [place] Urine Protein Urine Glucose (UA) Urine Ketones Urine Blood Urine RBC (Auto) 06/15/19 06/15/19 06/16/19 18:35 19:15 04:10 WBC 5.9 RBC 3.02 L Hgb 9.6 L Hct 28.3 L MCV 94 MCH 31.7 MCHC 33.8 RDW 14.3 H Plt Count 142 L Seg Neutrophils % VBG pH 7.21 L VBG pCO2 42.5 VBG HCO3 16.8 L VBG Base Excess -10.5 Sodium Potassium Chloride Carbon Dioxide Anion Gap BUN Creatinine Est GFR ( Amer) Glucose Lactic Acid Calcium Magnesium Total Bilirubin AST Alkaline Phosphatase Total Protein Albumin TSH Urine Color LIGHT YELLOW Urine Appearance TURBID Urine pH 5.0 Ur Specific [place] 1.000 Urine Protein NEGATIVE Urine Glucose (UA) NEGATIVE Urine Ketones NEGATIVE Urine Blood NEGATIVE Urine RBC (Auto) 125 06/16/19 06/16/19 04:10 04:10 WBC RBC Hgb Hct MCV MCH MCHC RDW Plt Count Seg Neutrophils % VBG pH VBG pCO2 VBG HCO3 VBG Base Excess Sodium 141.0 Potassium 4.5 Chloride 116 H Carbon Dioxide 15 L Anion Gap 10 BUN 49 H Creatinine 2.91 H Est GFR ( Amer) 19 L Glucose 79 Lactic Acid Calcium 8.3 L Magnesium 1.7 Total Bilirubin AST Alkaline Phosphatase Total Protein Albumin TSH 0.28 L Urine Color Urine Appearance Urine pH Ur Specific [place] Urine Protein Urine Glucose (UA) Urine Ketones Urine Blood Urine RBC (Auto) Impressions: Renal Ultrasound 06/15/19 14:29 IMPRESSION: Moderate right hydronephrosis. Chest X-Ray 06/15/19 17:39 IMPRESSION: NO ACUTE FINDINGS. Assessment and Plan - Diagnosis (1) Acute kidney injury superimposed on chronic kidney disease Is this a current diagnosis for this admission?: Yes Plan: Improving compared to admission. Nonoliguric. Prerenal. Most likely due to volume depletion caused by acute diarrhea. Baseline 2.2. Not on hemodialysis. Nonoliguric. Cautious volume resuscitation guided by volume status, monitor electrolytes and replace as needed, monitor volume status, avoid nephrotoxic meds. Outpatient PCP and nephrology follow-up. (2) Diarrhea Qualifiers: Diarrhea type: unspecified type Qualified Code(s): R19.7 - Diarrhea, unspecified Is this a current diagnosis for this admission?: Yes Plan: Acute watery nonbloody diarrhea. Denies any sick contact, recent travel. Had dinner at [employer] one night prior to admission. Recent history of p.o. antibiotic intake for recent UTI. Day 2 IV antibiotics. Day 2 IV Zosyn. Continue conversation guided by volume status, monitor electrolytes and replete as needed, stool WBC, rule out C. difficile colitis. (3) Acute right flank pain Is this a current diagnosis for this admission?: Yes Plan: Unlikely patient has pyelonephritis based on physical examination lab finding. Patient stated that she has been evaluated by urologist outpatient. No intervention was given. History of remote pelvic radiation for cervical cancer. Denies any history of recurrent UTI or pyelonephritis. We will continue supportive measures. Outpatient neurology follow-up. (4) Anemia in chronic kidney disease Qualifiers: Chronic kidney disease stage: stage 3 (moderate) Qualified Code(s): N18.3 - Chronic kidney disease, stage 3 (moderate); D63.1 - Anemia in chronic kidney disease Is this a current diagnosis for this admission?: Yes Plan: Baseline hemoglobin 9-11 g/dl Denies any hematemesis, hemoptysis, nosebleeds, hematochezia, melena or vaginal bleeding. Patient may benefit from Procrit administration. Outpatient nephrology follow-up. (5) Hydroureter determined by ultrasound Is this a current diagnosis for this admission?: Yes Plan: Outpatient urology follow-up. History of pelvic radiation for remote cervical cancer. As per patient she has been evaluated by urology outpatient no intervention was done. (6) UTI (urinary tract infection) Qualifiers: Urinary tract infection type: acute cystitis Qualified Code(s): N10 - Acute pyelonephritis Is this a current diagnosis for this admission?: Yes Plan: Partially treated. Patient recently received Keflex for 1 week. Afebrile. WBC WNL. Negative leukocytosis. Urine WBC>182 Day 2 IV antibiotics. Day 2 IV Zosyn. Continue IV antibiotics. Follow-up urine culture.
[2019-06-16 11:39] LABS: FREE T3 4.18 pg/mL (2.77-5.27); FREE T4 (FREE THYROXINE) 0.84 ng/dL (0.78-2.19)
[2019-06-17] MEDS: RINGERS SOLUTION,LACTATED 1,000 ML IV PRN ×2 (03:28→10:05)
[2019-06-17 03:58] LABS: C DIFFICILE GDH NEGATIVE (NEGATIVE)
[2019-06-17] MEDS: HEPARIN SOD (PORCINE) 5,000 UNIT/ML 1 ML VIAL SUBCUT SCH ×3 (05:03→21:52)
[2019-06-17 06:41] LABS: HEMATOCRIT 27.9 % (36.0-47.0); HEMOGLOBIN 9.5 g/dL (12.0-15.5); MEAN CORPUSCULAR HEMOGLOBIN 31.3 pg (27.0-33.4); MEAN CORPUSCULAR HGB CONC 34.2 g/dL (32.0-36.0); MEAN CORPUSCULAR VOLUME 92 fl (80-97); PLATELET COUNT 142 10^3/uL (150-450); RED BLOOD COUNT 3.05 10^6/uL (3.72-5.28); RED CELL DISTRIBUTION WIDTH 14.2 % (11.5-14.0); WHITE BLOOD COUNT 4.9 10^3/uL (4.0-10.5)
[2019-06-17 07:02] LABS: ANION GAP 11 (5-19); BLOOD UREA NITROGEN 42 mg/dL (7-20); CALCIUM 8.4 mg/dL (8.4-10.2); CARBON DIOXIDE 14 mmol/L (22-30); CHLORIDE 119 mmol/L (98-107); GLUCOSE 90 mg/dL (75-110); POTASSIUM 4.5 mmol/L (3.6-5.0)
[2019-06-17] MEDS: DOCUSATE SODIUM 100 MG CAPSULE PO SCH ×2 (09:57→17:20)
[2019-06-17] MEDS ORDERED: LEVOFLOXACIN 500 MG TABLET PO SCH (10:00)
[2019-06-17] MEDS: FAMOTIDINE 20 MG TABLET PO SCH (10:04)
[2019-06-17] MEDS: METOPROLOL SUCCINATE 25 MG TAB.SR.24H PO SCH (10:04)
--- NOTE | 2019-06-17 11:43 | PDOC PROGRESS REPORT ---
Subjective Progress Note for:: 06/17/19 Subjective:: IVA NELSON is a 79 year old female who presented to the emergency room with a one-week history of right flank pain. She admits being seen in the emergency room 2 weeks ago and leaving AMA at that time after being diagnosed with a urinary tract infection. She did receive a one-week course of oral Keflex and completed the medication with no improvement. Over the week her right flank pain has increased in intensity and is now a moderate intermittent deep aching pain in the right posterior flank without radiation, worsened by walking and activity and relieved by rest. She admits he accompanying symptom of generalized malaise. She admits associated mild nausea and occasional chills but denies fever or diaphoresis. She denies other associated or accompanying signs and symptoms. She admits prior similar episodes with urinary tract infections. She has not identified any additional aggravating or ameliorating factors for her right flank pain. In the emergency room she was again to found to have pyuria with a normal white blood count and a normal serum lactate. Her hemoglobin was noted to be 10.8 consistent with her prior readings. Her creatinine has increased from 1.7 up to 3.13 over the week interval. She was subsequently admitted to the hospital for further evaluation and treatment. 06/16/2019. The right flank pain improving, patient complaining of diarrhea started 1 day prior to admission, has had 2 episodes of nonbloody watery carla rrhea since admission. She had dinner at [employer] the night before admission, denies any sick contact or recent travel. She has been recently evaluated by urologist for her right hydronephrosis however she was told no intervention needed. Denies any fever, chills, nausea, abdominal pain, chest pain or any shortness of breath. 06/17/2019. No acute events overnight. Patient is endorsing one episode of nonbloody loose stool, otherwise denying any fever, chills, nausea, vomiting or any urinary symptoms. Patient has been afebrile WBC WNL, but she has a positive urine and blood culture. Possible discharge home tomorrow. Reason For Visit: ACUTE KIDNEY INJURY ON CHRONIC KIDNEY DISEASE Physical Exam Vital Signs: Temp Pulse Resp BP Pulse Ox 97.2 F 66 16 153/68 H 100 06/17/19 07:37 06/17/19 07:37 06/17/19 07:37 06/17/19 07:37 06/17/19 07:37 Intake & Output 06/16/19 06/17/19 06/18/19 06:59 06:59 06:59 Intake Total 1000 3911 1000 Balance 1000 3911 1000 Weight 72.575 kg 72.4 kg General appearance: PRESENT: no acute distress, well-developed, well-nourished Respiratory exam: PRESENT: clear to auscultation zahira. ABSENT: rales, rhonchi, wheezes Cardiovascular exam: PRESENT: RRR. ABSENT: diastolic murmur, rubs, systolic murmur GI/Abdominal exam: PRESENT: normal bowel sounds, soft. ABSENT: distended, guarding, mass, organolmegaly, rebound, tenderness Neurological exam: PRESENT: alert, awake, oriented to person, oriented to place, oriented to time, oriented to situation, CN II-XII grossly intact. ABSENT: motor sensory deficit Results Laboratory Results: 06/17/19 06:18 06/17/19 06:18 06/17/19 06/17/19 06/17/19 01:00 06:18 06:18 WBC 4.9 RBC 3.05 L Hgb 9.5 L Hct 27.9 L MCV 92 MCH 31.3 MCHC 34.2 RDW 14.2 H Plt Count 142 L Sodium 143.6 Potassium 4.5 Chloride 119 H Carbon Dioxide 14 L Anion Gap 11 BUN 42 H Creatinine 2.63 H Est GFR ( Amer) 21 L Glucose 90 Calcium 8.4 Magnesium 1.6 Stool for White Cells MODERATE H 06/15/19 15:36 Blood Blood Culture (PCR) - Final Impressions: Renal Ultrasound 06/15/19 14:29 IMPRESSION: Moderate right hydronephrosis. Chest X-Ray 06/15/19 17:39 IMPRESSION: NO ACUTE FINDINGS. Assessment and Plan - Diagnosis (1) Acute kidney injury superimposed on chronic kidney disease Is this a current diagnosis for this admission?: Yes Plan: Improving. Creatinine 2.63 down from 3.13 from admission. Baseline creatinine 2.23. Nonoliguric. Prerenal. Most likely due to volume depletion caused by acute diarrhea. Cautious volume resuscitation guided by volume status, monitor electrolytes and replace as needed, monitor volume status, avoid nephrotoxic meds. Outpatient PCP and nephrology follow-up. (2) Diarrhea Qualifiers: Diarrhea type: infectious Qualified Code(s): A09 - Infectious gastroenteritis and colitis, unspecified Is this a current diagnosis for this admission?: Yes Plan: Improving. Had a one loose stool last night. Infectious diarrhea. Fecal leukocyte positive. Pending culture and sensitivity. C. difficile toxin negative. Denies any sick contact, recent travel. Had dinner at [employer] one night prior to admission. Recent history of p.o. antibiotic intake for recent UTI. Day 3 IV antibiotics. Received 2 days of IV Zosyn. Day 1 p.o. levofloxacin. Continue volume resuscitation guided by volume status, monitor electrolytes and replete as needed. (3) Acute right flank pain Is this a current diagnosis for this admission?: Yes Plan: Unlikely patient has pyelonephritis based on physical examination lab finding. Patient stated that she has been evaluated by urologist outpatient. No interv ention was given. History of remote pelvic radiation for cervical cancer. Denies any history of r ecurrent UTI or pyelonephritis. We will continue supportive measures. Outpatient neurology follow-up. (4) Anemia in chronic kidney disease Qualifiers: Chronic kidney disease stage: stage 3 (moderate) Qualified Code(s): N18.3 - Chronic kidney disease, stage 3 (moderate); D63.1 - Anemia in chronic kidney disease Is this a current diagnosis for this admission?: Yes Plan: Baseline hemoglobin 9-11 g/dl Denies any hematemesis, hemoptysis, nosebleeds, hematochezia, melena or vaginal bleeding. Patient may benefit from Procrit administration. Outpatient nephrology follow-up. (5) Hydroureter determined by ultrasound Is this a current diagnosis for this admission?: Yes Plan: Outpatient urology follow-up. History of pelvic radiation for remote cervical cancer. As per patient she has been evaluated by urology outpatient no intervention was done. (6) UTI (urinary tract infection) Qualifiers: Urinary tract infection type: acute cystitis Is this a current diagnosis for this admission?: Yes Plan: Partially treated. Patient recently received Keflex for 1 week. Afebrile. WBC WNL. Negative leukocytosis. 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 coli, Klebsiella, Pseudomonas, and Streptococcus bovis. Urine culture positive for Citrobacter Freundii and gram-negative rods. Day 3 IV antibiotics. Received 2 days of IV Zosyn. Day 1 p.o. levofloxacin. Continue IV antibiotics. Follow-up urine culture. (7) Gram-positive bacteremia Is this a current diagnosis for this admission?: Yes Plan: Blood culture 1 out of 2 bottles growing gram-positive cocci. Pending sensitivity. Afebrile. WBC WNL. No systemic sign of infectious except for diarrhea. Day 3 IV antibiotics. Received 2 days of IV Zosyn. Day 1 p.o. levofloxacin. Continue empiric antibiotics. Repeat blood culture. Follow culture and sensitivity.
[2019-06-18] MEDS ORDERED: HYDRALAZINE HCL INJ/PF 20 MG/1 ML SDV IV PRN (00:12)
[2019-06-18 04:48] LABS: HEMATOCRIT 26.1 % (36.0-47.0); HEMOGLOBIN 8.8 g/dL (12.0-15.5); MEAN CORPUSCULAR HEMOGLOBIN 31.4 pg (27.0-33.4); MEAN CORPUSCULAR HGB CONC 33.8 g/dL (32.0-36.0); MEAN CORPUSCULAR VOLUME 93 fl (80-97); PLATELET COUNT 138 10^3/uL (150-450); RED BLOOD COUNT 2.81 10^6/uL (3.72-5.28); RED CELL DISTRIBUTION WIDTH 14.2 % (11.5-14.0); WHITE BLOOD COUNT 4.9 10^3/uL (4.0-10.5)
[2019-06-18] MEDS: HEPARIN SOD (PORCINE) 5,000 UNIT/ML 1 ML VIAL SUBCUT SCH ×2 (05:00→13:22)
[2019-06-18 05:09] LABS: ANION GAP 10 (5-19); BLOOD UREA NITROGEN 39 mg/dL (7-20); CALCIUM 8.2 mg/dL (8.4-10.2); CARBON DIOXIDE 15 mmol/L (22-30); CHLORIDE 119 mmol/L (98-107); GLUCOSE 91 mg/dL (75-110); POTASSIUM 4.1 mmol/L (3.6-5.0)
[2019-06-18 08:17] LABS: ABSOLUTE RETICS # 0.024 10^6/uL (0.028-0.122); RETICULOCYTE COUNT (AUTO) 0.88 % (0.66-2.85)
[2019-06-18 08:24] LABS: IRON(TIBC) 104.6 ug/dL (37-170)
[2019-06-18] MEDS: DOCUSATE SODIUM 100 MG CAPSULE PO SCH (09:29)
[2019-06-18 09:30] LABS: FOLATE 5.13 ng/mL (>2.76)
[2019-06-18] MEDS: FAMOTIDINE 20 MG TABLET PO SCH (09:31)
[2019-06-18] MEDS: METOPROLOL SUCCINATE 25 MG TAB.SR.24H PO SCH (09:31)
[2019-06-18] MEDS ORDERED: LEVOFLOXACIN 250 MG TABLET PO SCH (10:00)
[2019-06-18] MEDS ORDERED: AMLODIPINE BESYLATE 2.5 MG TABLET PO SCH (13:00)
[2019-06-18 13:35] VITALS: BP 141/60
--- NOTE | 2019-06-21 19:26 | PDOC DISCHARGE SUMMARY ---
Impression - Admit/DC Date/PCP Admission Date/Primary Care Provider: 06/15/19 20:41 Discharge Date: 06/21/19 - Discharge Diagnosis (1) Acute kidney injury superimposed on chronic kidney disease Is this a current diagnosis for this admission?: Yes (2) Diarrhea Is this a current diagnosis for this admission?: Yes (3) Acute right flank pain Is this a current diagnosis for this admission?: Yes (4) Anemia in chronic kidney disease Is this a current diagnosis for this admission?: Yes (5) Hydroureter determined by ultrasound Is this a current diagnosis for this admission?: Yes (6) UTI (urinary tract infection) Is this a current diagnosis for this admission?: Yes (7) Gram-positive bacteremia Is this a current diagnosis for this admission?: Yes - Additional Information Resuscitation Status: Full Code Discharge Diet: As Tolerated Discharge Activity: Activity As Tolerated Referrals: HUBERT CONN MD [NO LOCAL MD] - 07/02/19 2:30 pm (PCP OFFICE STAFF NOTIFIED OF REFERRALS FOR NEPHROLOGY AND UROLOGY. PCP WILL ADDRESS UPON FOLLOW UP APPT.) Prescriptions: Levofloxacin 250 mg PO DAILY 6 Days #6 ml Amlodipine Besylate [Norvasc 2.5 mg Tablet] 2.5 mg PO DAILY 30 Days #30 tablet Metoprolol Succinate [Toprol Xl 25 mg Tab.sr] 25 mg PO DAILY 30 Days #30 tab.sr.24h Home Medications: Amlodipine Besylate [Norvasc 2.5 mg Tablet] 2.5 mg PO DAILY 30 Days #30 tablet 06/18/19 Levofloxacin 250 mg PO DAILY 6 Days #6 ml 06/18/19 Metoprolol Succinate [Toprol Xl 25 mg Tab.sr] 25 mg PO DAILY 30 Days #30 tab.sr.24h 06/18/19 History of Present Illiness History of Present Illness: IVA NELSON is a 79 year old female who presented to the emergency room with a one-week history of right flank pain. She admits being seen in the emergency room 2 weeks ago and leaving A at that time after being diagnosed with a urinary tract infection. She did receive a one-week course of oral Keflex and completed the medication with no improvement. Over the week her right flank pain has increased in intensity and is now a moderate intermittent deep aching pain in the right posterior flank without radiation, worsened by walking and activity and relieved by rest. She admits he accompanying symptom of generalized malaise. She admits associated mild nausea and occasional chills but denies fever or diaphoresis. She denies other associated or accompanying signs and symptoms. She admits prior similar episodes with urinary tract infections. She has not identified any additional aggravating or ameliorating factors for her right flank pain. In the emergency room she was again to found to have pyuria with a normal white blood count and a normal serum lactate. Her hemoglobin was noted to be 10.8 consistent with her prior readings. Her creatinine has increased from 1.7 up to 3.13 over the week interval. She was subsequently admitted to the hospital for further evaluation and treatment. Hospital Course Hospital Course: (1) Acute kidney injury superimposed on chronic kidney disease Improving. Creatinine 2.63 down from 3.13 from admission. Baseline creatinine 2.23. Nonoliguric. Prerenal. Most likely due to volume depletion caused by acute diarrhea. Cautious volume resuscitation guided by volume status, monitor electrolytes and replace as needed, monitor volume status, avoid nephrotoxic meds. Outpatient PCP and nephrology follow-up. (2) Diarrhea Improving. Had a one loose stool last night. Infectious diarrhea. Fecal leukocyte positive. Pending culture and sensitivity. C. difficile toxin negative. Denies any sick contact, recent travel. Had dinner at [employer] one night prior to admission. Recent history of p.o. antibiotic intake for recent UTI. Day 3 IV antibiotics. Received 2 days of IV Zosyn. Day 1 p.o. levofloxacin. Continue volume resuscitation guided by volume status, monitor electrolytes and replete as needed. (3) Acute right flank pain Unlikely patient has pyelonephritis based on physical examination lab finding. Patient stated that she has been evaluated by urologist outpatient. No intervention was given. History of remote pelvic radiation for cervical cancer. Denies any history of recurrent UTI or pyelonephritis. We will continue supportive measures. Outpatient neurology follow-up. (4) Anemia in chronic kidney disease Baseline hemoglobin 9-11 g/dl Denies any hematemesis, hemoptysis, nosebleeds, hematochezia, melena or vaginal bleeding. Patient may benefit from Procrit administration. Outpatient nephrology follow-up. (5) Hydroureter determined by ultrasound Outpatient urology follow-up. History of pelvic radiation for remote cervical cancer. As per patient she has been evaluated by urology outpatient no intervention was done. (6) UTI (urinary tract infection) Partially treated. Patient recently received Keflex for 1 week. Afebrile. WBC WNL. Negative leukocytosis. 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 coli, Klebsiella, Pseudomonas, and Streptococcus bovis. Urine culture positive for Citrobacter Freundii and gram-negative rods. Day 3 IV antibiotics. Received 2 days of IV Zosyn. Day 1 p.o. levofloxacin. Continue IV antibiotics. Follow-up urine culture. (7) Gram-positive bacteremia Blood culture 1 out of 2 bottles growing gram-positive cocci. Pending sensiti vity. Afebrile. WBC WNL. No systemic sign of infectious except for diarrhea. Day 3 IV antibiotics. Received 2 days of IV Zosyn. Day 1 p.o. levofloxacin. Continue empiric antibiotics. Repeat blood culture. Follow culture and sensitivity. Physical Exam Vital Signs: Temp Pulse Resp BP Pulse Ox 97.4 F 76 19 141/60 H 100 06/18/19 16:16 06/18/19 16:16 06/18/19 16:16 06/18/19 16:16 06/18/19 16:16 General appearance: PRESENT: no acute distress, well-developed, well-nourished Head exam: PRESENT: atraumatic, normocephalic Eye exam: PRESENT: conjunctiva pink, EOMI, PERRLA. ABSENT: scleral icterus Ear exam: PRESENT: normal external ear exam Mouth exam: PRESENT: moist, tongue midline Neck exam: ABSENT: carotid bruit, JVD, lymphadenopathy, thyromegaly Respiratory exam: PRESENT: clear to auscultation zahira. ABSENT: rales, rhonchi, wheezes Cardiovascular exam: PRESENT: RRR. ABSENT: diastolic murmur, rubs, systolic murmur Pulses: PRESENT: normal dorsalis pedis pul Vascular exam: PRESENT: normal capillary refill GI/Abdominal exam: PRESENT: normal bowel sounds, soft. ABSENT: distended, guarding, mass, organolmegaly, rebound, tenderness Rectal exam: PRESENT: deferred Extremities exam: PRESENT: full ROM. ABSENT: calf tenderness, clubbing, pedal edema Neurological exam: PRESENT: alert, awake, oriented to person, oriented to place, oriented to time, oriented to situation, CN II-XII grossly intact. ABSENT: motor sensory deficit Psychiatric exam: PRESENT: appropriate affect, normal mood. ABSENT: homicidal ideation, suicidal ideation Skin exam: PRESENT: dry, intact, warm. ABSENT: cyanosis, rash Results Laboratory Results: WBC 4.9 10^3/uL (4.0-10.5) 06/18/19 03:50 RBC 2.81 10^6/uL (3.72-5.28) L 06/18/19 03:50 Hgb 8.8 g/dL (12.0-15.5) L 06/18/19 03:50 Hct 26.1 % (36.0-47.0) L 06/18/19 03:50 MCV 93 fl (80-97) 06/18/19 03:50 MCH 31.4 pg (27.0-33.4) 06/18/19 03:50 MCHC 33.8 g/dL (32.0-36.0) 06/18/19 03:50 RDW 14.2 % (11.5-14.0) H 06/18/19 03:50 Plt Count 138 10^3/uL (150-450) L 06/18/19 03:50 Lymph % (Auto) 17.6 % (13-45) 06/15/19 15:05 [place] % (Auto) 7.8 % (3-13) 06/15/19 15:05 Eos % (Auto) 2.1 % (0-6) 06/15/19 15:05 Baso % (Auto) 1.2 % (0-2) 06/15/19 15:05 Reticulocyte # 0.024 10^6/uL (0.028-0.122) L 06/18/19 03:50 Absolute Neuts (auto) 5.0 10^3/uL (1.7-8.2) 06/15/19 15:05 Absolute Lymphs (auto) 1.2 10^3/uL (0.5-4.7) 06/15/19 15:05 Absolute Monos (auto) 0.5 10^3/uL (0.1-1.4) 06/15/19 15:05 Absolute Eos (auto) 0.1 10^3/uL (0.0-0.6) 06/15/19 15:05 Absolute Basos (auto) 0.1 10^3/uL (0.0-0.2) 06/15/19 15:05 Seg Neutrophils % 71.3 % (42-78) 06/15/19 15:05 Retic Count (auto) 0.88 % (0.66-2.85) 06/18/19 03:50 VBG pH 7.21 (7.30-7.42) L 06/15/19 18:35 VBG pCO2 42.5 mmHg (35-63) 06/15/19 18:35 VBG HCO3 16.8 mmol/L (20-32) L 06/15/19 18:35 VBG Base Excess -10.5 mmol/L 06/15/19 18:35 Sodium 144.0 mmol/L (137-145) 06/18/19 03:50 Potassium 4.1 mmol/L (3.6-5.0) 06/18/19 03:50 Chloride 119 mmol/L (98-107) H 06/18/19 03:50 Carbon Dioxide 15 mmol/L (22-30) L 06/18/19 03:50 Anion Gap 10 (5-19) 06/18/19 03:50 BUN 39 mg/dL (7-20) H 06/18/19 03:50 Creatinine 2.58 mg/dL (0.52-1.25) H 06/18/19 03:50 Est GFR ( Amer) 22 (>60) L 06/18/19 03:50 Est GFR (MDRD) Non-Af 18 (>60) L 06/18/19 03:50 Glucose 91 mg/dL (75-110) 06/18/19 03:50 Lactic Acid 1.2 mmol/L (0.7-2.1) 06/15/19 17:30 Calcium 8.2 mg/dL (8.4-10.2) L 06/18/19 03:50 Magnesium 1.5 mg/dL (1.6-2.3) L 06/18/19 03:50 Iron 104.6 ug/dL (37-170) 06/18/19 03:50 TIBC 263 ug/dL (250-450) 06/18/19 03:50 % Saturation 40 % 06/18/19 03:50 Ferritin 55.10 ng/mL (11.1-264.0) 06/18/19 03:50 Total Bilirubin 0.4 mg/dL (0.2-1.3) 06/15/19 15:05 Direct Bilirubin 0.1 mg/dL (0.0-0.4) 06/15/19 15:05 Neonat Total Bilirubin Not Reportable 06/15/19 15:05 Neonat Direct Bilirubin Not Reportable 06/15/19 15:05 Neonat Indirect Bili Not Reportable 06/15/19 15:05 AST 16 U/L (14-36) 06/15/19 15:05 ALT 10 U/L (<35) 06/15/19 15:05 Alkaline Phosphatase 85 U/L (38-126) 06/15/19 15:05 Total Protein 7.6 g/dL (6.3-8.2) 06/15/19 15:05 Albumin 4.0 g/dL (3.5-5.0) 06/15/19 15:05 Vitamin B12 251.0 pg/mL (239-931) 06/18/19 03:50 Folate 5.13 ng/mL (>2.76) 06/18/19 03:50 TSH 0.28 uIU/mL (0.47-4.68) L 06/16/19 04:10 Free T4 0.84 ng/dL (0.78-2.19) 06/16/19 04:10 Free T3 pg/mL 4.18 pg/mL (2.77-5.27) 06/16/19 04:10 Urine Color LIGHT YELLOW 06/15/19 19:15 Urine Appearance TURBID 06/15/19 19:15 Urine pH 5.0 (5.0-9.0) 06/15/19 19:15 Ur Specific [place] 1.000 06/15/19 19:15 Urine Protein NEGATIVE mg/dL (NEGATIVE) 06/15/19 19:15 Urine Glucose (UA) NEGATIVE mg/dL (NEGATIVE) 06/15/19 19:15 Urine Ketones NEGATIVE mg/dL (NEGATIVE) 06/15/19 19:15 Urine Blood NEGATIVE (NEGATIVE) 06/15/19 19:15 Urine Nitrite (Reflex) NEGATIVE (NEGATIVE) 06/15/19 19:15 Urine Bilirubin NEGATIVE (NEGATIVE) 06/15/19 19:15 Urine Urobilinogen NEGATIVE mg/dL (<2.0) 06/15/19 19:15 Leukocyte Esterase Rfl NEGATIVE (NEGATIVE) 06/15/19 19:15 Urine RBC (Auto) 125 /HPF 06/15/19 19:15 Urine WBC (Reflex) > 182 /HPF 06/15/19 19:15 Urine WBC Clumps MANY /HPF 06/15/19 19:15 Squamous Epi Cells Auto 7 /HPF 06/15/19 19:15 U Non-Squamous Epis Auto 8 /HPF 06/15/19 19:15 Urine Mucus (Auto) FEW /LPF 06/15/19 19:15 Urine Yeast (Budding) PRESENT /HPF 06/15/19 19:15 Urine Ascorbic Acid NEGATIVE (NEGATIVE) 06/15/19 19:15 Stool for White Cells MODERATE H 06/17/19 01:00 Stl C. Difficile GDH Ag NEGATIVE (NEGATIVE) 06/17/19 01:05 Stl C.difficile Tox A&B NEGATIVE (NEGATIVE) 06/17/19 01:05 Impressions: Renal Ultrasound 06/15/19 14:29 IMPRESSION: Moderate right hydronephrosis. Chest X-Ray 06/15/19 17:39 IMPRESSION: NO ACUTE FINDINGS. Stroke Is this a Stroke Patient?: No Acute Heart Failure - Is this a Heart Failure Patient?: No
== END 2019-06-18 17:05 | disposition home or self-care (01) | DRG 683 ==
LOC: ER 14:03 → EH 20:41 → 5 21:20
PROVIDERS: ADMIT Emergency Medicine; ATTEND Emergency Medicine
DX: N17.9 Acute kidney failure, unspecified (principal); N39.0 Urinary tract infection, site not specified; N13.4 Hydroureter; A09 Infectious gastroenteritis and colitis, unspecified; E86.0 Dehydration; N18.3 Chronic kidney disease, stage 3 (moderate); D63.1 Anemia in chronic kidney disease; B96.5 Pseudomonas (aeruginosa) (mallei) (pseudomallei) as the cause of diseases classified elsewhere; B95.7 Other staphylococcus as the cause of diseases classified elsewhere; B96.89 Other specified bacterial agents as the cause of diseases classified elsewhere; Z85.41 Personal history of malignant neoplasm of cervix uteri
CPT/HCPCS: 36415; 71045; 76775; 80048; 80053; 81001; 82607; 82728; 82746; 82803; 83540; 83550; 83605; 83735; 84439; 84443; 84481; 85025; 85027; 85045; 87040; 87045; 87077; 87086; 87088; 87150; 87186; 87205; 87324; 87449; 89055; 96361; 96365; 99285; J0360; J1644; J2543; J7030; J7120

== ENCOUNTER → 2019-07-02 | Outpatient (CLI) | payer MEDICARE ==
[2019-07-02 16:27] LABS: ABSOLUTE BASOPHILS # (AUTO) 0.1 10^3/uL (0.0-0.2); ABSOLUTE EOSINOPHILS # (AUTO) 0.1 10^3/uL (0.0-0.6); ABSOLUTE LYMPHOCYTES (AUTO) 1.2 10^3/uL (0.5-4.7); ABSOLUTE MONOCYTES (AUTO) 0.3 10^3/uL (0.1-1.4); ABSOLUTE NEUT (AUTO) 3.4 10^3/uL (1.7-8.2); BASOPHILS % (AUTO) 1.9 % (0-2); EOSINOPHILS % (AUTO) 2.8 % (0-6); HEMATOCRIT 31.7 % (36.0-47.0); HEMOGLOBIN 10.6 g/dL (12.0-15.5); LYMPHOCYTES % (AUTO) 22.4 % (13-45); MEAN CORPUSCULAR HEMOGLOBIN 31.2 pg (27.0-33.4); MEAN CORPUSCULAR HGB CONC 33.6 g/dL (32.0-36.0); MEAN CORPUSCULAR VOLUME 93 fl (80-97); MONOCYTES % (AUTO) 6.7 % (3-13); PLATELET COUNT 187 10^3/uL (150-450); RED BLOOD COUNT 3.41 10^6/uL (3.72-5.28); SEGMENTED NEUTROPHILS % (AUTO) 66.2 % (42-78); TOTAL CELLS COUNTED % (AUTO) 100 %; WHITE BLOOD COUNT 5.2 10^3/uL (4.0-10.5)
[2019-07-02 16:48] LABS: ALKALINE PHOSPHATASE 81 U/L (38-126); ANION GAP 10 (5-19); ASPARTATE AMINO TRANSFERASE 17 U/L (14-36); BILIRUBIN,DIRECT 0.1 mg/dL (0.0-0.4); BILIRUBIN,TOTAL 0.5 mg/dL (0.2-1.3); BLOOD UREA NITROGEN 47 mg/dL (7-20); CALCIUM 8.7 mg/dL (8.4-10.2); CARBON DIOXIDE 17 mmol/L (22-30); CHLORIDE 115 mmol/L (98-107); CREATINE KINASE 22 U/L (30-135); GLUCOSE 102 mg/dL (75-110); IRON(TIBC) 110.4 ug/dL (37-170); POTASSIUM 5.1 mmol/L (3.6-5.0); TOTAL PROTEIN 7.6 g/dL (6.3-8.2); URIC ACID 7.5 mg/dL (2.5-7.5)
[2019-07-02 17:58] LABS: FOLATE 8.12 ng/mL (>2.76)
== END ==
LOC: LAB 15:44
PROVIDERS: ATTEND Family Medicine
DX: N17.9 Acute kidney failure, unspecified (principal); N18.4 Chronic kidney disease, stage 4 (severe); D63.1 Anemia in chronic kidney disease
CPT/HCPCS: 36415; 80053; 82306; 82550; 82607; 82728; 82746; 83540; 83550; 83735; 84550; 85025

== ENCOUNTER 2019-08-10 14:14 | Emergency (ER) | payer MEDICARE ==
--- NOTE | 2019-08-10 14:37 | ER Document Report ---
ED Medical Screen (RME) - General Chief Complaint: Back Pain Stated Complaint: LOWER ABDOMINAL/BACK PAIN Time Seen by Provider: 08/10/19 14:31 Primary Care Provider: HUBERT CONN MD [Primary Care Provider] - Follow up as needed Mode of Arrival: Wheelchair Information source: Patient Notes: 79-year-old female presented to ED for complaint of right flank pain and back pain.. Once in a while she feels sick to her stomach but does not vomit. She was stating she was seen in the emergency room about 2 weeks ago and was told to follow-up with her urologist. She states they did not give her the name and number of her urologist. And no one called her to schedule an appointment. She states her pain is continuing so she is back to find what to do. I have greeted and performed a rapid initial assessment of this patient. A comprehensive ED assessment and evaluation of the patient, analysis of test results and completion of medical decision making process will be conducted by an additional ED providers. TRAVEL OUTSIDE OF THE [place] IN LAST 30 DAYS: No - Related Data Allergies/Adverse Reactions: No Known Allergies Allergy (Verified 08/10/19 14:30) Past Medical History - Social History Family history: CAD, CVA - Past Medical History Cardiac Medical History: Reports: Hx Hypertension Denies: Hx Coronary Artery Disease, Hx Heart Attack Pulmonary Medical History: Denies: Hx Asthma, Hx Bronchitis, Hx COPD, Hx Pneumonia Neurological Medical History: Denies: Hx Cerebrovascular Accident, Hx Seizures Endocrine Medical History: Denies: Hx Diabetes Mellitus Type 1, Hx Diabetes Mellitus Type 2, Hx Hyperthyroidism, Hx Hypothyroidism Renal/ Medical History: Reports: Hx Renal Insufficiency. Denies: Hx Peritoneal Dialysis Malignancy Medical History: Reports: Hx Cervical Cancer GI Medical History: Denies: Hx Cirrhosis, Hx Crohn's Disease, Hx Hepatitis, Hx Ulcerative Colitis Musculoskeltal Medical History: Reports Hx Arthritis, Denies Hx Gout, Reports Hx Musculoskeletal Deformity Skin Medical History: Denies Hx Eczema, Denies Hx Psoriasis Infectious Medical History: Denies: Hx Hepatitis Past Surgical History: Denies: Hx Hysterectomy - Immunizations Hx Diphtheria, Pertussis, Tetanus Vaccination: No Physical Exam - Vital signs Vitals: Temp Pulse Resp BP Pulse Ox 97.9 F 119 H 16 93/62 L 99 08/10/19 14:23 08/10/19 14:23 08/10/19 14:23 08/10/19 14:23 08/10/19 14:23 Course - Vital Signs Vital signs: Temp Pulse Resp BP Pulse Ox 97.9 F 119 H 16 93/62 L 99 08/10/19 14:23 08/10/19 14:23 08/10/19 14:23 08/10/19 14:23 08/10/19 14:23 Doctor's Discharge - Discharge Referrals: HUBERT CONN MD [Primary Care Provider] - Follow up as needed
[2019-08-10 15:08] LABS: ABSOLUTE BASOPHILS # (AUTO) 0.1 10^3/uL (0.0-0.2); ABSOLUTE EOSINOPHILS # (AUTO) 0.2 10^3/uL (0.0-0.6); ABSOLUTE LYMPHOCYTES (AUTO) 1.6 10^3/uL (0.5-4.7); ABSOLUTE MONOCYTES (AUTO) 0.4 10^3/uL (0.1-1.4); ABSOLUTE NEUT (AUTO) 4.8 10^3/uL (1.7-8.2); BASOPHILS % (AUTO) 1.2 % (0-2); EOSINOPHILS % (AUTO) 2.4 % (0-6); LYMPHOCYTES % (AUTO) 23.3 % (13-45); MEAN CORPUSCULAR HEMOGLOBIN 32.4 pg (27.0-33.4); MEAN CORPUSCULAR HGB CONC 34.5 g/dL (32.0-36.0); MEAN CORPUSCULAR VOLUME 94 fl (80-97); MONOCYTES % (AUTO) 5.4 % (3-13); PLATELET COUNT 190 10^3/uL (150-450); RED BLOOD COUNT 3.09 10^6/uL (3.72-5.28); SEGMENTED NEUTROPHILS % (AUTO) 67.7 % (42-78); TOTAL CELLS COUNTED % (AUTO) 100 %; WHITE BLOOD COUNT 7.1 10^3/uL (4.0-10.5)
[2019-08-10 15:26] LABS: ALBUMIN 3.9 g/dL (3.5-5.0); ALKALINE PHOSPHATASE 73 U/L (38-126); ANION GAP 13 (5-19); ASPARTATE AMINO TRANSFERASE 17 U/L (14-36); BILIRUBIN,DIRECT 0.3 mg/dL (0.0-0.4); BILIRUBIN,TOTAL 0.4 mg/dL (0.2-1.3); BLOOD UREA NITROGEN 64 mg/dL (7-20); CARBON DIOXIDE 16 mmol/L (22-30); CHLORIDE 112 mmol/L (98-107); GLUCOSE 155 mg/dL (75-110); POTASSIUM 4.9 mmol/L (3.6-5.0); TOTAL PROTEIN 7.4 g/dL (6.3-8.2)
--- NOTE | 2019-08-10 16:41 | RADIOLOGY REPORT (SQ) ---
EXAM DESCRIPTION: U/S RETROPERITONEAL (RENAL/AORTA) COMPLETED DATE/TIME: 08/10/2019 3:26 pm REASON FOR STUDY: Flank pain COMPARISON: 06/15/2019 TECHNIQUE: Dynamic and static grayscale images acquired of the kidneys and bladder and recorded on P ACS. Additional selected color Doppler and spectral images recorded. LIMITATIONS: None. FINDINGS: RIGHT KIDNEY: Small size measuring 8 x 5.2 x 5.5 cm. There is loss of the normal corticom edullary differentiation. No hydronephrosis. No solid or cystic mass. No perinephric fluid. LEFT KIDNEY: Small size measuring 9.3 x 4.9 x 5.2 cm. Loss of normal corticomedullary differentiati on. No hydronephrosis. No solid or cystic mass. No perinephric fluid. BLADDER: The urinary bladder is not visualized. Patient had recently voided. OTHER FINDINGS: No other significant finding. IMPRESSION: No hydronephrosis. Echogenic kidneys which may indicate medical renal disease. TECHNICAL DOCUMENTATION: JOB ID: [id number] [employer]- All Rights Reserved Reading location - IP/workstation name: [email or web address]
[2019-08-10] MEDS ORDERED: CEFTRIAXONE 1 GM/D5W RTU 1 GM/50 ML RTUPB IV ONE (18:30)
[2019-08-10] MEDS ORDERED: ONDANSETRON HCL INJ/PF 4 MG/2 ML SDV IV ONE (18:39)
--- NOTE | 2019-08-10 18:47 | ER Document Report ---
ED General - General Chief Complaint: Flank Pain Stated Complaint: LOWER ABDOMINAL/BACK PAIN Time Seen by Provider: 08/10/19 14:31 Primary Care Provider: [facility] [Provider Group] - Follow up in 1 week HUBERT CONN MD [Primary Care Provider] - Follow up as needed Mode of Arrival: Wheelchair TRAVEL OUTSIDE OF THE [place] IN LAST 30 DAYS: No - HPI Notes: Patient is a 79-year-old female with a history of hypertension and CKD with previous cervical cancer more than 40 years ago who presents complaining of having intermittent right mid back pain/right flank pain for the past couple weeks. Patient states that when she is moving she feels it, but when she lays down it goes away. Pain does not radiate. She has had issues with urination for the past several months. She is able to eat and drink without difficulty, but does have decreased p.o. intake today. She does have some nausea without vomiting. She is urinating per her normal and having normal bowel movements. Denies any injury to the area. Denies any headache, fever, neck pain, URI, sore throat, chest pain, palpitations, syncope, cough, shortness of breath, wheeze, dyspnea, abdominal pain, vomiting/diarrhea, hematuria, numbness/tingling, saddle anesthesia, muscle paralysis/weakness, or rash. - Related Data Allergies/Adverse Reactions: No Known Allergies Allergy (Verified 08/10/19 14:30) Past Medical History - General Information source: Patient - Social History Smoking Status: Never Smoker Family History: CAD, DM, Other - Gallbladder disease Patient has suicidal ideation: No Patient has homicidal ideation: No - Past Medical History Cardiac Medical History: Reports: Hx Hypertension Denies: Hx Coronary Artery Disease, Hx Heart Attack Pulmonary Medical History: Denies: Hx Asthma, Hx Bronchitis, Hx COPD, Hx Pneumonia Neurological Medical History: Denies: Hx Cerebrovascular Accident, Hx Seizures Endocrine Medical History: Denies: Hx Diabetes Mellitus Type 1, Hx Diabetes Mellitus Type 2, Hx Hyperthyroidism, Hx Hypothyroidism Renal/ Medical History: Reports: Hx Renal Insufficiency. Denies: Hx Peritoneal Dialysis Malignancy Medical History: Reports: Hx Cervical Cancer GI Medical History: Denies: Hx Cirrhosis, Hx Crohn's Disease, Hx Hepatitis, Hx Ulcerative Colitis Musculoskeletal Medical History: Reports Hx Arthritis, Denies Hx Gout, Reports Hx Musculoskeletal Deformity Skin Medical History: Denies Hx Eczema, Denies Hx Psoriasis Infectious Medical History: Denies: Hx Hepatitis Past Surgical History: Denies: Hx Hysterectomy - Immunizations Hx Diphtheria, Pertussis, Tetanus Vaccination: No Review of Systems - Review of Systems -: Yes All other systems reviewed and negative Physical Exam - Vital signs Vitals: Pulse Ox 99 08/10/19 14:16 - Notes Notes: PHYSICAL EXAMINATION: GENERAL: Well-appearing, well-nourished and in no acute distress. HEAD: Atraumatic, normocephalic. EYES: Pupils equal round and reactive to light, extraocular movements intact, sclera anicteric, conjunctiva are normal. ENT: Nares patent and without discharge. oropharynx clear without exudates. No tonsilar hypertrophy or erythema. Moist mucous membranes. NECK: Normal range of motion, supple without lymphadenopathy LUNGS: Breath sounds clear to auscultation bilaterally and equal. No wheezes rales or rhonchi. HEART: Regular rate and rhythm without murmurs, rubs, gallops. ABDOMEN: Soft, nontender, nondistended abdomen. No guarding, no rebound. Normal bowel sounds present. No CVA tenderness bilaterally. Anderson negative. No tenderness at McBurney. Back: FROM. Strength 5+/5. No midline tenderness or step-offs. No paraspinal tenderness noted. SLR negative. No foot drop. Musculoskeletal: FROM to passive/active. Strength 5+/5. Extremities: No cyanosis, clubbing, or edema b/l. Peripheral pulses 2+. Capillary refill less than 3 seconds. NEUROLOGICAL: Normal speech, normal gait. Normal sensory, motor exams PSYCH: Normal mood, normal affect. SKIN: Warm, Dry, normal turgor, no rashes or lesions noted. Course - Re-evaluation Re-evalutation: 08/10/19 21:36 Patient is an afebrile, well-hydrated, 79-year-old female who presents with right flank pain and chronic issues with dysuria, currently asymptomatic with a right flank pain and has been since prior to arrival. No h/o stones. Vitals are acceptable without significant tachycardia, tachypnea, or hypoxia. PE is otherwise unremarkable. Patient's abdomen is soft and nontender throughout. Patient is nontoxic-appearing and is tolerating p.o. without difficulty. CBC and CMP are acceptable and her creatinine is at baseline. According to staff who did a straight cath, urine was thick and had a foul odor with only a scant amount obtained. See UA, UC pending. Because of her culture results from previous visit we will cover her with Cipro because it is susceptible to both bacteria that were present. She did receive fluids and rocephin here. Low susp icion/risk for acute appendicitis, bowel obstruction, acute cholecystitis, acute cholangitis, perforated diverticulitis, incarcerated hernia, pancreatitis, perforated ulcer, peritonitis, sepsis, pelvic inflammatory disease, or other systemic emergent condition at this time. Patient is aware that her condition can change from initial presentation and she needs to monitor symptoms closely and seek medical attention if any acute changes. Pt is feeling better and would like to go home. Conservative measures otherwise for symptoms. Recheck with your PCM in 2-3 days. Schedule an appointment with urology. Return to the ED with any worsening/concerning symptoms otherwise as reviewed in discharge. Patient is in agreement. - Vital Signs Vital signs: Temp Pulse Resp BP Pulse Ox 98.1 F 119 H 17 122/67 99 08/10/19 18:46 08/10/19 14:23 08/10/19 19:30 08/10/19 19:30 08/10/19 19:30 - Laboratory Result Diagrams: 08/10/19 14:40 08/10/19 14:40 Laboratory results interpreted by me: 08/10/19 08/10/19 08/10/19 14:40 14:40 21:50 RBC 3.09 L Hgb 10.0 L Hct 29.0 L Chloride 112 H Carbon Dioxide 16 L BUN 64 H Creatinine 2.90 H Est GFR ( Amer) 19 L Est GFR (MDRD) Non-Af 16 L Glucose 155 H Urine Protein 100 H Urine Blood MODERATE H Ur Leukocyte Esterase MODERATE H Discharge - Discharge Clinical Impression: Dysuria, Right flank pain Condition: Stable Disposition: HOME, SELF-CARE Instructions: Antinausea Medication ([facility]) Additional Instructions: Push fluids (i.e. water, cranberry juice) Proper hygenic technique Keep the skin clean Tylenol/ibuprofen as needed Take medications as directed F/u with your PCM in 3-5 days for a recheck Consider consult with a Urologist for ongoing/worsening symptoms. Return to the ED with any worsening symptoms and/or development of fever, headache, chest pain, palpitations, syncope, shortness of breath, trouble breathing, abdominal pain, n/v/d, blood in stool/urine, loss of control of bowel/bladder, urinary retention, or other worsening symptoms that are concerning to you. Prescriptions: Ciprofloxacin HCl [Cipro 500 mg Tablet] 500 mg PO BID #14 tablet Referrals: HUBERT CONN MD [Primary Care Provider] - Follow up as needed [facility] [Provider Group] - Follow up in 1 week
[2019-08-10] MEDS: NORMAL SALINE 1000 ML 1,000 ML IV PRN ×2 (19:08→19:15)
[2019-08-10] MEDS ORDERED: FAMOTIDINE 20 MG TABLET PO ONE (21:42)
[2019-08-10] MEDS ORDERED: ONDANSETRON ODT 4 MG TAB (6 TAB/ER DISP) PO PRN (21:42)
[2019-08-10 22:20] LABS: APPEARANCE,URINE TURBID; BILIRUBIN,URINE NEGATIVE (NEGATIVE); COLOR,URINE YELLOW; GLUCOSE, URINE NEGATIVE (NEGATIVE); KETONES,URINE NEGATIVE (NEGATIVE); LEUKOCYTE ESTERASE,URINE MODERATE (NEGATIVE); NITRITE,URINE NEGATIVE (NEGATIVE); PROTEIN,URINE 100 mg/dL (NEGATIVE); URINE SPECIFIC GRAVITY 1.014; UROBILINOGEN,URINE NEGATIVE mg/dL (<2.0)
[2019-08-10 22:56] VITALS: BP 139/78
== END 2019-08-10 22:56 | disposition home or self-care (01) ==
LOC: ER 14:14
DX: R30.0 Dysuria (principal); R10.9 Unspecified abdominal pain; R11.0 Nausea; M54.9 Dorsalgia, unspecified; I10 Essential (primary) hypertension
CPT/HCPCS: 99284; 96375; 96365; 36415; 87040; 87086; 83605; 85025; 87088; 80053; 81001; 87186; 76770; A9270 ×2; J2405; J7030; J0696

== ENCOUNTER 2019-08-14 15:06 | Inpatient (IN) | payer MEDICARE ==
--- NOTE | 2019-08-14 15:47 | ER Document Report ---
ED General - General Stated Complaint: GENERAL WEAKNESS Time Seen by Provider: 08/14/19 15:40 Primary Care Provider: HUBERT CONN MD [Primary Care Provider] - Follow up as needed Mode of Arrival: Ambulatory Information source: Patient TRAVEL OUTSIDE OF THE [place] IN LAST 30 DAYS: No - HPI Onset: Other - over the last 2 months Onset/Duration: Gradual Quality of pain: Achy Severity: Moderate Pain Level: 2 Associated symptoms: Other - urinary retention Exacerbated by: Other - palpation of her stomch Similar symptoms previously: Yes Recently seen / treated by doctor: Yes - was seen in this ER on Aug 10 2019 Notes: 79 year old female with a history of HTN, CKD, Cervical Cancer here for continued abdominal pain and urinary issues. The patient says she cannot urinate during the day but she is then incontinent at night. The patient denies fevers, chills, sweats but she has some nausea. The patient was prescribed and Zofran for nausea on her last ER visit on Aug 10 - Related Data Allergies/Adverse Reactions: No Known Allergies Allergy (Verified 08/10/19 14:30) Past Medical History - General Information source: Patient - Social History Smoking Status: Former Smoker Frequency of alcohol use: Occasional Drug Abuse: None Lives with: Alone Family History: CAD, DM, Other - Gallbladder disease Patient has suicidal ideation: No Patient has homicidal ideation: No - Past Medical History Cardiac Medical History: Reports: Hx Hypertension Denies: Hx Coronary Artery Disease, Hx Heart Attack Pulmonary Medical History: Denies: Hx Asthma, Hx Bronchitis, Hx COPD, Hx Pneumonia Neurological Medical History: Denies: Hx Cerebrovascular Accident, Hx Seizures Endocrine Medical History: Denies: Hx Diabetes Mellitus Type 1, Hx Diabetes Mellitus Type 2, Hx Hyperthyroidism, Hx Hypothyroidism Renal/ Medical History: Reports: Hx Renal Insufficiency. Denies: Hx Peritoneal Dialysis Malignancy Medical History: Reports: Hx Cervical Cancer GI Medical History: Denies: Hx Cirrhosis, Hx Crohn's Disease, Hx Hepatitis, Hx Ulcerative Colitis Musculoskeletal Medical History: Reports Hx Arthritis, Denies Hx Gout, Reports Hx Musculoskeletal Deformity Skin Medical History: Denies Hx Eczema, Denies Hx Psoriasis Infectious Medical History: Denies: Hx Hepatitis Past Surgical History: Denies: Hx Hysterectomy - Immunizations Hx Diphtheria, Pertussis, Tetanus Vaccination: No Review of Systems - Review of Systems Gastrointestinal: Abdominal pain, Nausea Genitourinary: Incontinence, Retention Female Genitourinary: No symptoms reported Musculoskeletal: No symptoms reported Skin: No symptoms reported Hematologic/Lymphatic: No symptoms reported Neurological/Psychological: No symptoms reported Physical Exam - Vital signs Vitals: Temp Pulse Resp BP Pulse Ox 98.4 F 101 H 20 106/88 H 99 08/14/19 15:14 08/14/19 15:14 08/14/19 15:14 08/14/19 15:14 08/14/19 15:14 - Notes Notes: GENERAL: Well-appearing, well-nourished and in no acute distress. HEAD: Atraumatic, normocephalic. EYES: Pupils equal round and reactive to light, extraocular movements intact, sclera anicteric, conjunctiva are normal. ENT: TMs normal, nares patent, oropharynx clear without exudates. Moist mucous membranes. NECK: Normal range of motion, supple without lymphadenopathy or JVD. LUNGS: Breath sounds clear to auscultation bilaterally and equal. No wheezes rales or rhonchi. HEART: Regular rate and rhythm without murmurs, rubs or gallops. ABDOMEN: Soft, nontender, normoactive bowel sounds. No guarding, no rebound. No masses appreciated. EXTREMITIES: Normal range of motion, no pitting or edema. No clubbing or cyanosis. NEUROLOGICAL: Cranial nerves II through XII grossly intact. Normal speech, normal gait. PSYCH: Normal mood, normal affect. SKIN: Warm, Dry, normal turgor, no rashes or lesions noted. Course - Re-evaluation Re-evalutation: 08/14/19 18:32 The patient has a hemoglobin of 7.7 which is down from 10 just the other week. Patient has been having dark stools and they are guiaic positive. Patient [facility] and Dr. Edwards of Surgery was consulted and he will see the patient in consult. Patient tells me she hasnt had a colonoscopy in many years. Patient was started on Protonix in the ER prior to admission. 08/14/19 18:35 - Vital Signs Vital signs: Temp Pulse Resp BP Pulse Ox 98.4 F 101 H 20 106/88 H 99 08/14/19 15:14 08/14/19 15:14 08/14/19 15:14 08/14/19 15:14 08/14/19 15:14 - Laboratory Result Diagrams: 08/14/19 16:25 08/14/19 16:25 Laboratory results interpreted by me: 08/14/19 08/14/19 08/14/19 16:25 16:25 16:25 RBC 2.40 L Hgb 7.7 L Hct 22.5 L PT 16.4 H Chloride 116 H Carbon Dioxide 16 L BUN 74 H Creatinine 3.35 H Est GFR ( Amer) 16 L Est GFR (MDRD) Non-Af 13 L Glucose 123 H Discharge - Discharge Clinical Impression: GI bleed Qualifiers: GI bleed type/associated pathology: unspecified gastrointestinal hemorrhage type Qualified Code(s): K92.2 - Gastrointestinal hemorrhage, unspecified Anemia Qualifiers: Anemia type: unspecified type Qualified Code(s): D64.9 - Anemia, unspecified Condition: Stable Disposition: ADMITTED INPATIENT Admitting Provider: Sunday (Hospitalist) Unit Admitted: Medical Floor Referrals: HUBERT CONN MD [Primary Care Provider] - Follow up as needed
[2019-08-14 16:45] LABS: ABSOLUTE EOSINOPHILS # (AUTO) 0.1 10^3/uL (0.0-0.6); ABSOLUTE LYMPHOCYTES (AUTO) 1.1 10^3/uL (0.5-4.7); ABSOLUTE MONOCYTES (AUTO) 0.4 10^3/uL (0.1-1.4); ABSOLUTE NEUT (AUTO) 5.4 10^3/uL (1.7-8.2); BASOPHILS % (AUTO) 0.4 % (0-2); EOSINOPHILS % (AUTO) 1.2 % (0-6); HEMATOCRIT 22.5 % (36.0-47.0); MEAN CORPUSCULAR HEMOGLOBIN 32.2 pg (27.0-33.4); MEAN CORPUSCULAR HGB CONC 34.4 g/dL (32.0-36.0); MEAN CORPUSCULAR VOLUME 94 fl (80-97); PLATELET COUNT 192 10^3/uL (150-450); RED CELL DISTRIBUTION WIDTH 13.2 % (11.5-14.0); SEGMENTED NEUTROPHILS % (AUTO) 76.4 % (42-78); TOTAL CELLS COUNTED % (AUTO) 100 %; WHITE BLOOD COUNT 7.1 10^3/uL (4.0-10.5)
[2019-08-14 16:50] LABS: HEMOGLOBIN 7.7 g/dL (12.0-15.5)
[2019-08-14 16:59] LABS: ALBUMIN 3.6 g/dL (3.5-5.0); ALKALINE PHOSPHATASE 65 U/L (38-126); ANION GAP 9 (5-19); ASPARTATE AMINO TRANSFERASE 16 U/L (14-36); BILIRUBIN,DIRECT 0.2 mg/dL (0.0-0.4); BILIRUBIN,TOTAL 0.4 mg/dL (0.2-1.3); BLOOD UREA NITROGEN 74 mg/dL (7-20); CALCIUM 8.6 mg/dL (8.4-10.2); CARBON DIOXIDE 16 mmol/L (22-30); CHLORIDE 116 mmol/L (98-107); GLUCOSE 123 mg/dL (75-110); POTASSIUM 4.6 mmol/L (3.6-5.0); TOTAL PROTEIN 6.5 g/dL (6.3-8.2)
[2019-08-14 18:14] LABS: INTERNATIONAL RATION (INR) 1.31; PROTHROMBIN TIME 16.4 SEC (11.4-15.4)
[2019-08-14] MEDS ORDERED: PANTOPRAZOLE SODIUM 40 MG VIAL IV ONE ×2 (18:24)
[2019-08-14] MEDS ORDERED: PANTOPRAZOLE SODIUM 40 MG VIAL IV PRN (18:27)
[2019-08-14] MEDS ORDERED: MAGNESIUM HYDROXIDE SUSP 30 ML UDCUP PO PRN (18:42)
[2019-08-14] MEDS ORDERED: ONDANSETRON HCL INJ/PF 4 MG/2 ML SDV IV PRN (18:42)
[2019-08-14] MEDS ORDERED: ACETAMINOPHEN 325 MG TABLET PO PRN (18:42)
[2019-08-14] MEDS ORDERED: ONDANSETRON 4 MG TAB.RAPDIS PO PRN (18:42)
[2019-08-14] MEDS ORDERED: MORPHINE SULFATE 10 MG/ML INJ IV PRN (18:50)
[2019-08-14] MEDS ORDERED: METOPROLOL SUCCINATE 25 MG TAB.SR.24H PO ONE (18:50)
--- NOTE | 2019-08-14 19:02 | PDOC H&P ---
History of Present Illness Admission Date/PCP: 08/14/19 18:42 HUBERT CONN MD History of Present Illness: IVA NELSON is a 79 year old female with abdominal pain.. Patient states that about 4 5 days ago she passed a couple black tarry stools. Says that she has not had a bowel movement now for 1 or 2 days. Patient states about a week ago she was here in the emergency room where she was treated for a urinary tract infection with Cipro but she does not really think she is any better. Symptoms at that time were suprapubic pressure or pain much like she has today. Evidently last week she did not complain of any melena. Patient states that she has been really having this pressure or abdominal pain for about a month now.. She also complains of nausea but no vomiting. Patient states that the Cipro she was taken for her supposedly UTI was making her nauseated as well. She had a renal ultrasound done last week when she was here for her UTI. Renal ultrasound showed no hydronephrosis but echogenic kidneys which may indicate medical renal disease. Patient's BUN fattening have both increased since June 2019. She tells me that her only known medical problem is hypertension and 40 years ago she was diagnosed with cervical cancer and had radiation therapy Patient comes in now with a hemoglobin of 7.7 whereas last week it was 10.0. Patient is in no distress and she would like to do her colonoscopy as an outpatient. Patient remains hemodynamically stable I do not see a problem with this. Past Medical History Medical History: Other - Colonoscopy 2 years ago Cardiac Medical History: Reports: Hypertension Denies: Coronary Artery Disease, Myocardial Infarction Pulmonary Medical History: Denies: Asthma, Bronchitis, Chronic Obstructive Pulmonary Disease (COPD), Pneumonia Neurological Medical History: Denies: Seizures Endocrine Medical History: Denies: Diabetes Mellitus Type 1, Diabetes Mellitus Type 2, Hyperthyroidism, Hypothyroidism Malignancy Medical History: Reports: Cervical Cancer GI Medical History: Denies: Cirrhosis, Crohn's Disease, Hepatitis, Ulcerative Colitis Musculoskeltal Medical History: Reports: Arthritis Denies: Gout Skin Medical History: Denies: Eczema, Psoriasis Hematology: Reports: Anemia Denies: Bleeding Tendencies Past Surgical History Past Surgical History: Denies: Hysterectomy Social History Lives with: Alone Smoking Status: Former Smoker Electronic Cigarette use?: No Frequency of Alcohol Use: Rare Hx Recreational Drug Use: No Drugs: None Hx Prescription Drug Abuse: No - Advance Directive Resuscitation Status: Do Not Intubate Family History Family History: CAD, DM, Other - Gallbladder disease Parental Family History Reviewed: No Children Family History Reviewed: No Sibling(s) Family History Reviewed.: No Medication/Allergy Home Medications: Amlodipine Besylate [Norvasc 2.5 mg Tablet] 2.5 mg PO DAILY 30 Days #30 tablet 06/18/19 Levofloxacin 250 mg PO DAILY 6 Days #6 ml 06/18/19 Metoprolol Succinate [Toprol Xl 25 mg Tab.sr] 25 mg PO DAILY 30 Days #30 tab.sr.24h 06/18/19 Ciprofloxacin HCl [Cipro 500 mg Tablet] 500 mg PO BID #14 tablet 08/10/19 Allergies/Adverse Reactions: No Known Allergies Allergy (Verified 08/10/19 14:30) Review of Systems Constitutional: ABSENT: chills, fever(s), headache(s), weight gain, weight loss Cardiovascular: ABSENT: chest pain, dyspnea on exertion, edema, orthropnea, pa lpitations Respiratory: ABSENT: cough, hemoptysis Gastrointestinal: PRESENT: nausea Neurological: ABSENT: abnormal gait, abnormal speech, confusion, dizziness, focal weakness, syncope Psychiatric: ABSENT: anxiety, depression, homidical ideation, suicidal ideation Physical Exam Vital Signs: Temp Pulse Resp BP Pulse Ox 98.4 F 101 H 20 106/88 H 99 08/14/19 15:14 08/14/19 15:14 08/14/19 15:14 08/14/19 15:14 08/14/19 15:14 Intake & Output 08/13/19 08/14/19 08/15/19 06:59 06:59 06:59 Weight 79.7 kg General appearance: PRESENT: no acute distress, other - She is talking laughing but she does complain of some "pressure" over her abdomen Respiratory exam: PRESENT: clear to auscultation zahira. ABSENT: rales, rhonchi, wheezes Cardiovascular exam: PRESENT: RRR. ABSENT: diastolic murmur, rubs, systolic murmur GI/Abdominal exam: PRESENT: hypoactive bowel sounds, soft, tenderness - Generalized but mostly right lower quadrant left lower quadrant and suprapubic Neurological exam: PRESENT: alert, awake, oriented to person, oriented to place, oriented to time, oriented to situation, CN II-XII grossly intact. ABSENT: motor sensory deficit Psychiatric exam: PRESENT: appropriate affect, normal mood. ABSENT: homicidal ideation, suicidal ideation Results Laboratory Results: 08/14/19 16:25 08/14/19 16:25 08/14/19 08/14/19 16:25 16:25 WBC 7.1 RBC 2.40 L Hgb 7.7 L Hct 22.5 L MCV 94 MCH 32.2 MCHC 34.4 RDW 13.2 Plt Count 192 Seg Neutrophils % 76.4 Sodium 141.4 Potassium 4.6 Chloride 116 H Carbon Dioxide 16 L Anion Gap 9 BUN 74 H Creatinine 3.35 H Est GFR ( Amer) 16 L Glucose 123 H Calcium 8.6 Total Bilirubin 0.4 AST 16 Alkaline Phosphatase 65 Total Protein 6.5 Albumin 3.6 Lipase 174.0 Assessment and Plan - Diagnosis (1) Hypertension Is this a current diagnosis for this admission?: Yes (2) Anemia Qualifiers: Anemia type: unspecified type Qualified Code(s): D64.9 - Anemia, unspecified Is this a current diagnosis for this admission?: Yes (3) GI bleed Qualifiers: GI bleed type/associated pathology: unspecified gastrointestinal hemorrhage type Qualified Code(s): K92.2 - Gastrointestinal hemorrhage, unspecified Is this a current diagnosis for this admission?: Yes (4) Acute kidney injury Is this a current diagnosis for this admission?: Yes (5) Melena Is this a current diagnosis for this admission?: Yes - Plan Summary Summary: 08/14/2019 Admit patient tonight to the hospital for gentle IV hydration, Protonix drip, clear liquid diet, CT scan of the abdomen and pelvis in the morning.. Serial labs to check hemoglobin. Patient remains hemodynamically stable and her kidney functions improve we will discharge the patient to follow-up with Dr. Edwards as an outpatient for a colonoscopy. Discussed this with Dr. Edwards and he thinks that is a reasonable approach this time - Time Time Spent with patient: 35 or more minutes
[2019-08-14] MEDS: DOCUSATE SODIUM 100 MG CAPSULE PO SCH (22:19)
[2019-08-14 22:46] LABS: APPEARANCE,URINE CLOUDY; BILIRUBIN,URINE NEGATIVE (NEGATIVE); COLOR,URINE YELLOW; GLUCOSE, URINE NEGATIVE (NEGATIVE); KETONES,URINE NEGATIVE (NEGATIVE); LEUKOCYTE ESTERASE,URINE LARGE (NEGATIVE); NITRITE,URINE NEGATIVE (NEGATIVE); PROTEIN,URINE 100 mg/dL (NEGATIVE); URINE SPECIFIC GRAVITY 1.012; UROBILINOGEN,URINE NEGATIVE mg/dL (<2.0)
[2019-08-15 05:54] LABS: ABSOLUTE BASOPHILS # (AUTO) 0.1 10^3/uL (0.0-0.2); ABSOLUTE EOSINOPHILS # (AUTO) 0.2 10^3/uL (0.0-0.6); ABSOLUTE LYMPHOCYTES (AUTO) 1.4 10^3/uL (0.5-4.7); ABSOLUTE MONOCYTES (AUTO) 0.4 10^3/uL (0.1-1.4); ABSOLUTE NEUT (AUTO) 4.2 10^3/uL (1.7-8.2); BASOPHILS % (AUTO) 0.9 % (0-2); HEMATOCRIT 21.5 % (36.0-47.0); LYMPHOCYTES % (AUTO) 21.8 % (13-45); MEAN CORPUSCULAR HEMOGLOBIN 32.2 pg (27.0-33.4); MEAN CORPUSCULAR HGB CONC 34.1 g/dL (32.0-36.0); MEAN CORPUSCULAR VOLUME 95 fl (80-97); MONOCYTES % (AUTO) 7.1 % (3-13); PLATELET COUNT 174 10^3/uL (150-450); RED BLOOD COUNT 2.27 10^6/uL (3.72-5.28); RED CELL DISTRIBUTION WIDTH 13.5 % (11.5-14.0); SEGMENTED NEUTROPHILS % (AUTO) 67.2 % (42-78); TOTAL CELLS COUNTED % (AUTO) 100 %; WHITE BLOOD COUNT 6.2 10^3/uL (4.0-10.5)
[2019-08-15 05:59] LABS: HEMOGLOBIN 7.3 g/dL (12.0-15.5)
[2019-08-15 06:01] LABS: INTERNATIONAL RATION (INR) 1.35; PROTHROMBIN TIME 16.8 SEC (11.4-15.4)
[2019-08-15 06:02] LABS: PARTIAL THROMBOPLASTIN TIME 26.4 SEC (23.5-35.8)
[2019-08-15 06:08] LABS: ANION GAP 13 (5-19); BLOOD UREA NITROGEN 71 mg/dL (7-20); CALCIUM 8.6 mg/dL (8.4-10.2); CARBON DIOXIDE 14 mmol/L (22-30); CHLORIDE 115 mmol/L (98-107); GLUCOSE 107 mg/dL (75-110); POTASSIUM 4.3 mmol/L (3.6-5.0)
--- NOTE | 2019-08-15 08:07 | RADIOLOGY REPORT (SQ) ---
EXAM DESCRIPTION: KUB/ABDOMEN (SINGLE VIEW) COMPLETED DATE/TIME: 08/15/2019 7:42 am REASON FOR STUDY: abdominal pain COMPARISON: CT 08/14/2019. NUMBER OF VIEWS: One view. TECHNIQUE: Supine radiographic image of the abdomen acquired. LIMITATIONS: None. FINDINGS: BOWEL GAS PATTERN: Mild oral contrast persists within the colon. Nonobstructive bowel gas pattern. CALCIFICATIONS: No suspicious calcifications. SOFT TISSUES: No gross mass or suggestion of organomegaly. HARDWARE: Bilateral ureteral stents in place. Canales catheter. BONES: No acute fracture. No worrisome bone lesions. OTHER: No other significant finding. IMPRESSION: NO RADIOGRAPHIC EVIDENCE FOR ACUTE ABDOMINAL DISEASE. TECHNICAL DOCUMENTATION: JOB ID: [id number] [employer]- All Rights Reserved Reading location - IP/workstation name: [email or web address]
--- NOTE | 2019-08-15 08:18 | RADIOLOGY REPORT (SQ) ---
EXAM DESCRIPTION: CT ABD/PELVIS ORAL ONLY COMPLETED DATE/TIME: 08/14/2019 9:55 pm REASON FOR STUDY: abdominal pain, gi bleed COMPARISON: 2014 TECHNIQUE: CT scan of the abdomen and pelvis performed with oral contrast and no intravenous contras t. Images reviewed with lung, soft tissue, and bone windows. Reconstructed coronal and sagittal MPR i mages reviewed. All images stored on PACS. All CT scanners at this facility use dose modulation, iterative reconstruction, and/or weight based d osing when appropriate to reduce radiation dose to as low as reasonably achievable (ALARA). [facility]: Dose Right [facility]: CareDose [facility]: Dose Right [facility]: Teradose 4D [facility]: [employer] RADIATION DOSE: CT Rad equipment meets quality standard of care and radiation dose reduction techniq ues were employed. CTDIvol: 5.4 mGy. DLP: 268 mGy-cm.mGy. LIMITATIONS: None. FINDINGS: LOWER CHEST: No significant findings. No nodules or infiltrates. NON-CONTRASTED LIVER, SPLEEN, ADRENALS: Liver and spleen normal. Chronic low density right adrenal m ass, likely adenoma or myelolipoma. PANCREAS: No masses. No peripancreatic inflammatory changes. GALLBLADDER: Chronic cholelithiasis without CT evidence of acute cholecystitis. RIGHT KIDNEY AND URETER: No obstruction. Ureteral stent in place. No stones. LEFT KIDNEY AND URETER: No obstruction. Ureteral stent in place. No stones. AORTA AND RETROPERITONEUM: No aneurysm. No retroperitoneal masses or adenopathy. BOWEL AND PERITONEAL CAVITY: No obvious masses or inflammatory changes. No free fluid. APPENDIX: Not visualized. PELVIS, BLADDER, AND ABDOMINAL WALL: Bladder decompressed by a Canales catheter. No pelvic mass or flu id. No abdominal wall mass or bowel containing hernia. BONES: Osteopenic. No fracture or bone lesion. OTHER: No other significant finding. IMPRESSION: 1. No acute or suspicious abdominopelvic abnormality. 2. Bilateral renal stents in place. 3. Cholelithiasis. TECHNICAL DOCUMENTATION: JOB ID: [id number] Quality ID # [id number]: Final reports with documentation of one or more dose reduction techniques (e.g., Au tomated exposure control, adjustment of the mA and/or kV according to patient size, use of iterative reconstruction technique) 2010 [employer]- All Rights Reserved Reading location - IP/workstation name: [email or web address]
[2019-08-15] MEDS: DOCUSATE SODIUM 100 MG CAPSULE PO SCH ×2 (09:05→17:36)
[2019-08-15] MEDS: NORMAL SALINE 1000 ML 1,000 ML IV PRN ×2 (10:06→18:18)
[2019-08-15] MEDS: AMLODIPINE BESYLATE 2.5 MG TABLET PO SCH (10:22)
--- NOTE | 2019-08-15 11:08 | PDOC PROGRESS REPORT ---
Subjective Progress Note for:: 08/15/19 Reason For Visit: UPPER GI BLEED, hypertension acute on CHRONIC KIDNEY DISEASE 08/15/2019 Patient admitted yesterday for melena stools, acute on chronic kidney disease, hypertension Physical Exam Vital Signs: Temp Pulse Resp BP Pulse Ox 98.6 F 100 16 106/48 L 99 08/15/19 07:21 08/15/19 07:21 08/15/19 07:21 08/15/19 07:21 08/15/19 07:21 Intake & Output 08/14/19 08/15/19 08/16/19 06:59 06:59 06:59 Intake Total 710 Output Total 330 Balance 380 Weight 70.2 kg General appearance: PRESENT: no acute distress, other - Patient's only complaint is that she is hungry and wants some "hot food" Patient states she is putting out more urine Respiratory exam: PRESENT: clear to auscultation zahira. ABSENT: rales, rhonchi, wheezes Cardiovascular exam: PRESENT: RRR. ABSENT: diastolic murmur, rubs, systolic murmur Neurological exam: PRESENT: alert, awake, oriented to person, oriented to place, oriented to time, oriented to situation, CN II-XII grossly intact. ABSENT: mot or sensory deficit Psychiatric exam: PRESENT: appropriate affect, normal mood, other - Patient in good spirits and very pleasant. ABSENT: homicidal ideation, suicidal ideation Results Laboratory Results: 08/15/19 05:10 08/15/19 05:10 08/14/19 08/14/19 08/14/19 16:25 16:25 22:10 WBC 7.1 RBC 2.40 L Hgb 7.7 L Hct 22.5 L MCV 94 MCH 32.2 MCHC 34.4 RDW 13.2 Plt Count 192 Seg Neutrophils % 76.4 Sodium 141.4 Potassium 4.6 Chloride 116 H Carbon Dioxide 16 L Anion Gap 9 BUN 74 H Creatinine 3.35 H Est GFR ( Amer) 16 L Glucose 123 H Calcium 8.6 Total Bilirubin 0.4 AST 16 Alkaline Phosphatase 65 Total Protein 6.5 Albumin 3.6 Lipase 174.0 Urine Color YELLOW Urine Appearance CLOUDY Urine pH 5.0 Ur Specific [place] 1.012 Urine Protein 100 H Urine Glucose (UA) NEGATIVE Urine Ketones NEGATIVE Urine Blood LARGE H Urine Nitrite NEGATIVE Ur Leukocyte Esterase LARGE H Urine WBC (Auto) >182 Urine RBC (Auto) >182 08/15/19 08/15/19 05:10 05:10 WBC 6.2 RBC 2.27 L Hgb 7.3 L Hct 21.5 L MCV 95 MCH 32.2 MCHC 34.1 RDW 13.5 Plt Count 174 Seg Neutrophils % 67.2 Sodium 141.6 Potassium 4.3 Chloride 115 H Carbon Dioxide 14 L Anion Gap 13 BUN 71 H Creatinine 3.30 H Est GFR ( Amer) 16 L Glucose 107 Calcium 8.6 Total Bilirubin AST Alkaline Phosphatase Total Protein Albumin Lipase Urine Color Urine Appearance Urine pH Ur Specific [place] Urine Protein Urine Glucose (UA) Urine Ketones Urine Blood Urine Nitrite Ur Leukocyte Esterase Urine WBC (Auto) Urine RBC (Auto) Impressions: Abdomen/Pelvis CT 08/14/19 00:00 IMPRESSION: 1. No acute or suspicious abdominopelvic abnormality. 2. Bilateral renal stents in place. 3. Cholelithiasis. KUB X-Ray 08/15/19 07:00 IMPRESSION: NO RADIOGRAPHIC EVIDENCE FOR ACUTE ABDOMINAL DISEASE. Assessment and Plan - Diagnosis (1) Hypertension Is this a current diagnosis for this admission?: Yes (2) Anemia Qualifiers: Anemia type: unspecified type Qualified Code(s): D64.9 - Anemia, unspecified Is this a current diagnosis for this admission?: Yes (3) GI bleed Qualifiers: GI bleed type/associated pathology: unspecified gastrointestinal hemorrhage type Qualified Code(s): K92.2 - Gastrointestinal hemorrhage, unspecified Is this a current diagnosis for this admission?: Yes (4) Acute kidney injury Is this a current diagnosis for this admission?: Yes (5) Melena Is this a current diagnosis for this admission?: Yes (6) Acute kidney injury superimposed on chronic kidney disease Is this a current diagnosis for this admission?: Yes - Plan Summary Summary: 08/14/2019 Admited patient tonight to the hospital for gentle IV hydration, Protonix drip, clear liquid diet, CT scan of the abdomen and pelvis in the morning.. Serial labs to check hemoglobin. Patient remains hemodynamically stable and her kidney functions improve we will discharge the patient to follow-up with Dr. Edwards as an outpatient for a colonoscopy. Discussed this with Dr. Edwards and he thinks that is a reasonable approach this time 08/15/2019 Patient states she is feeling much better this morning and is very hungry. Patient's primary complaint for admission was "black tarry stools and abdominal pain. Temperature 98.6 pulse 92, blood pressure 106/48 O2 sat 99% on room air Hemoglobin on admission 7.7 today 7.3 Urinalysis showed a large amount of leukocytes urine culture is pending KUB from this morning shows no abnormality. CT scan of the abdomen and pelvis last night with oral contrast showed bilateral renal stents and gallstones BUN back in 2014 was 73, then back in May 2019 it was 58 but did correct all the way up to 39 Creatinine back in 2014 was 3.20 then in May 2019 it was 3.21 and it is now back up to 3.30. Appears to have had off and on renal problems and in fact she does have bilateral renal stents I will continue to gently hydrate the patient today, plan to transfuse her as patient is hemodynamically stable and has no complaints of abdominal pain. Patient also would like to have her bowel prep done at home when she is more comfortable and follow-up as an outpatient for her colonoscopy. Anticipate discharge tomorrow morning. I have changed her IV Protonix to p.o. Protonix ordered her regular diet - Time Time Spent with patient: 25-34 minutes
[2019-08-15] MEDS ORDERED: FAMOTIDINE INJ/PF 20 MG/2 ML SDV IV ONE (12:44)
[2019-08-15] MEDS: PANTOPRAZOLE SODIUM 20 MG TABLET.DR PO SCH (17:36)
[2019-08-16] MEDS: AMLODIPINE BESYLATE 2.5 MG TABLET PO SCH (10:36)
[2019-08-16] MEDS: DOCUSATE SODIUM 100 MG CAPSULE PO SCH (10:36)
[2019-08-16] MEDS: PANTOPRAZOLE SODIUM 20 MG TABLET.DR PO SCH (10:36)
[2019-08-16 11:50] VITALS: BP 132/75
--- NOTE | 2019-08-16 14:11 | PDOC DISCHARGE SUMMARY ---
Impression - Admit/DC Date/PCP Admission Date/Primary Care Provider: 08/14/19 18:42 HUBERT CONN MD Discharge Date: 08/16/19 - Discharge Diagnosis (1) Hypertension Is this a current diagnosis for this admission?: Yes (2) Anemia Is this a current diagnosis for this admission?: Yes (3) GI bleed Is this a current diagnosis for this admission?: Yes (4) Acute kidney injury Is this a current diagnosis for this admission?: Yes (5) Melena Is this a current diagnosis for this admission?: Yes (6) Acute kidney injury superimposed on chronic kidney disease Is this a current diagnosis for this admission?: Yes (7) UTI (urinary tract infection) Is this a current diagnosis for this admission?: Yes - Assessment Summary: 08/14/2019 Admited patient tonight to the hospital for gentle IV hydration, Protonix drip, clear liquid diet, CT scan of the abdomen and pelvis in the morning.. Serial labs to check hemoglobin. Patient remains hemodynamically stable and her kidney functions improve we will discharge the patient to follow-up with Dr. Edwards as an outpatient for a colonoscopy. Discussed this with Dr. Edwards and he thinks that is a reasonable approach this time 08/15/2019 Patient states she is feeling much better this morning and is very hungry. Patient's primary complaint for admission was "black tarry stools and abdominal pain. Temperature 98.6 pulse 92, blood pressure 106/48 O2 sat 99% on room air Hemoglobin on admission 7.7 today 7.3 Urinalysis showed a large amount of leukocytes urine culture is pending KUB from this morning shows no abnormality. CT scan of the abdomen and pelvis last night with oral contrast showed bilateral renal stents and gallstones BUN back in 2014 was 73, then back in May 2019 it was 58 but did correct all the way up to 39 Creatinine back in 2014 was 3.20 then in May 2019 it was 3.21 and it is now back up to 3.30. Appears to have had off and on renal problems and in fact she does have bilateral renal stents I will continue to gently hydrate the patient today, plan to transfuse her as patient is hemodynamically stable and has no complaints of abdominal pain. Patient also would like to have her bowel prep done at home when she is more comfortable and follow-up as an outpatient for her colonoscopy. Anticipate discharge tomorrow morning. I have changed her IV Protonix to p.o. Protonix ordered her regular diet 08/16/2019 States she feels great wants to go home. Vital signs are stable today which are 98 2, pulse 82 blood pressure 113/66, hemoglobin has stabilized at 7.3, urinalysis is positive for UTI She was discharged home with a prescription for Bactrim double strength 7 days Protonix 20 mg twice daily Toprol 25 mg daily Vasotec 2.5 mg daily. Diagnosis at time of discharge include #1 UTI #2 abdominal pain #3 melena No. 4 upper GI bleed #5 history of cervical cancer And is going to follow-up with her disability insurance hearing officer and/or her primary care provider. Change PCPs have given her the name of Dr. Montalvo, her to call to see if he is taking new patients.. Did not want to have her GI studies done while in the hospital and since she is medically stable I felt that was reasonable. She had no further episodes of melena or bright red blood Patient's renal functions have also improved on gentle hydration. I also discussed this with general surgery at the time of admission - Additional Information Resuscitation Status: Do Not Intubate Discharge Diet: As Tolerated Discharge Activity: Balance Activity w/Rest Referrals: ELFEGO MONTALVO MD [ACTIVE STAFF] - 08/26/19 2:00 pm (QUESTIONS OR CONCERNS PLEASE CALL THE OFFICE. [phone].) Prescriptions: Sulfamethoxazole/Trimethoprim [Bactrim Ds Tablet] 1 each PO BID 7 Days #14 tablet Amlodipine Besylate [Norvasc 2.5 mg Tablet] 2.5 mg PO DAILY 30 Days #30 tablet Pantoprazole Sodium [Protonix [address] Tablet] 20 mg PO BID 30 Days #60 tablet.dr Metoprolol Succinate [Toprol Xl 25 mg Tab.sr] 25 mg PO DAILY #30 tab.sr.24h Home Medications: Acetaminophen [Tylenol 325 mg Tablet] 650 mg PO Q4HP PRN tablet 08/16/19 Amlodipine Besylate [Norvasc 2.5 mg Tablet] 2.5 mg PO DAILY 30 Days #30 tablet 08/16/19 Docusate Sodium [Colace 100 mg Capsule] 100 mg PO BID capsule 08/16/19 Metoprolol Succinate [Toprol Xl 25 mg Tab.sr] 25 mg PO DAILY #30 tab.sr.24h 08/16/19 Pantoprazole Sodium [Protonix [address] Tablet] 20 mg PO BID 30 Days #60 tablet.dr 08/16/19 Sulfamethoxazole/Trimethoprim [Bactrim Ds Tablet] 1 each PO BID 7 Days #14 tablet 08/16/19 History of Present Illiness History of Present Illness: IVA NELSON is a 79 year old female with abdominal pain.. Patient states that about 4 5 days ago she passed a couple black tarry stools. Says that she has not had a bowel movement now for 1 or 2 days. Patient states about a week ago she was here in the emergency room where she was treated for a urinary tract infection with Cipro but she does not really think she is any better. Symptoms at that time were suprapubic pressure or pain much like she has today. Evidently last week she did not complain of any melena. Patient states that she has been really having this pressure or abdominal pain for about a month now.. She also complains of nausea but no vomiting. Patient states that the Cipro she was taken for her supposedly UTI was making her nauseated as well. She had a renal ultrasound done last week when she was here for her UTI. Renal ultrasound showed no hydronephrosis but echogenic kidneys which may indicate medical renal disease. Patient's BUN fattening have both increased since June 2019. She tells me that her only known medical problem is hypertension and 40 years ago she was diagnosed with cervical cancer and had radiation therapy Patient comes in now with a hemoglobin of 7.7 whereas last week it was 10.0. Patient is in no distress and she would like to do her colonoscopy as an outpatient. Patient remains hemodynamically stable I do not see a problem with this. Physical Exam Vital Signs: Temp Pulse Resp BP Pulse Ox 97.6 F 85 16 132/75 H 100 08/16/19 11:23 08/16/19 11:23 08/16/19 11:23 08/16/19 11:23 08/16/19 11:23 Intake & Output 08/15/19 08/16/19 08/17/19 06:59 06:59 06:59 Intake Total 710 2170 Output Total 330 275 Balance 380 1895 Weight 70.2 kg 70.4 kg Results Laboratory Results: WBC 6.2 10^3/uL (4.0-10.5) 08/15/19 05:10 RBC 2.27 10^6/uL (3.72-5.28) L 08/15/19 05:10 Hgb 7.3 g/dL (12.0-15.5) L 08/15/19 05:10 Hct 21.5 % (36.0-47.0) L 08/15/19 05:10 MCV 95 fl (80-97) 08/15/19 05:10 MCH 32.2 pg (27.0-33.4) 08/15/19 05:10 MCHC 34.1 g/dL (32.0-36.0) 08/15/19 05:10 RDW 13.5 % (11.5-14.0) 08/15/19 05:10 Plt Count 174 10^3/uL (150-450) 08/15/19 05:10 Lymph % (Auto) 21.8 % (13-45) 08/15/19 05:10 Knott % (Auto) 7.1 % (3-13) 08/15/19 05:10 Eos % (Auto) 3.0 % (0-6) 08/15/19 05:10 Baso % (Auto) 0.9 % (0-2) 08/15/19 05:10 Absolute Neuts (auto) 4.2 10^3/uL (1.7-8.2) 08/15/19 05:10 Absolute Lymphs (auto) 1.4 10^3/uL (0.5-4.7) 08/15/19 05:10 Absolute Monos (auto) 0.4 10^3/uL (0.1-1.4) 08/15/19 05:10 Absolute Eos (auto) 0.2 10^3/uL (0.0-0.6) 08/15/19 05:10 Absolute Basos (auto) 0.1 10^3/uL (0.0-0.2) 08/15/19 05:10 Seg Neutrophils % 67.2 % (42-78) 08/15/19 05:10 PT 16.8 SEC (11.4-15.4) H 08/15/19 05:10 INR 1.35 08/15/19 05:10 APTT 26.4 SEC (23.5-35.8) 08/15/19 05:10 Sodium 141.6 mmol/L (137-145) 08/15/19 05:10 Potassium 4.3 mmol/L (3.6-5.0) 08/15/19 05:10 Chloride 115 mmol/L (98-107) H 08/15/19 05:10 Carbon Dioxide 14 mmol/L (22-30) L 08/15/19 05:10 Anion Gap 13 (5-19) 08/15/19 05:10 BUN 71 mg/dL (7-20) H 08/15/19 05:10 Creatinine 3.30 mg/dL (0.52-1.25) H 08/15/19 05:10 Est GFR ( Amer) 16 (>60) L 08/15/19 05:10 Est GFR (MDRD) Non-Af 13 (>60) L 08/15/19 05:10 Glucose 107 mg/dL (75-110) 08/15/19 05:10 Calcium 8.6 mg/dL (8.4-10.2) 08/15/19 05:10 Total Bilirubin 0.4 mg/dL (0.2-1.3) 08/14/19 16:25 Direct Bilirubin 0.2 mg/dL (0.0-0.4) 08/14/19 16:25 Neonat Total Bilirubin Not Reportable 08/14/19 16:25 Neonat Direct Bilirubin Not Reportable 08/14/19 16:25 Neonat Indirect Bili Not Reportable 08/14/19 16:25 AST 16 U/L (14-36) 08/14/19 16:25 ALT 8 U/L (<35) 08/14/19 16:25 Alkaline Phosphatase 65 U/L (38-126) 08/14/19 16:25 Total Protein 6.5 g/dL (6.3-8.2) 08/14/19 16:25 Albumin 3.6 g/dL (3.5-5.0) 08/14/19 16:25 Lipase 174.0 U/L (23-300) 08/14/19 16:25 Urine Color YELLOW 08/14/19 22:10 Urine Appearance CLOUDY 08/14/19 22:10 Urine pH 5.0 (5.0-9.0) 08/14/19 22:10 Ur Specific [place] 1.012 08/14/19 22:10 Urine Protein 100 mg/dL (NEGATIVE) H 08/14/19 22:10 Urine Glucose (UA) NEGATIVE mg/dL (NEGATIVE) 08/14/19 22:10 Urine Ketones NEGATIVE mg/dL (NEGATIVE) 08/14/19 22:10 Urine Blood LARGE (NEGATIVE) H 08/14/19 22:10 Urine Nitrite NEGATIVE (NEGATIVE) 08/14/19 22:10 Urine Bilirubin NEGATIVE (NEGATIVE) 08/14/19 22:10 Urine Urobilinogen NEGATIVE mg/dL (<2.0) 08/14/19 22:10 Ur Leukocyte Esterase LARGE (NEGATIVE) H 08/14/19 22:10 Urine WBC (Auto) >182 /HPF 08/14/19 22:10 Urine RBC (Auto) >182 /HPF 08/14/19 22:10 Urine Bacteria (Auto) 1+ /HPF 08/14/19 22:10 Urine WBC Clumps MANY /HPF 08/14/19 22:10 Squamous Epi Cells Auto 10 /HPF 08/14/19 22:10 Urine Yeast (Budding) PRESENT /HPF 08/14/19 22:10 Urine Ascorbic Acid NEGATIVE (NEGATIVE) 08/14/19 22:10 POC Stool Occult Blood POSITIVE (NEGATIVE) 08/14/19 17:49 Impressions: Abdomen/Pelvis CT 08/14/19 00:00 IMPRESSION: 1. No acute or suspicious abdominopelvic abnormality. 2. Bilateral renal stents in place. 3. Cholelithiasis. KUB X-Ray 08/15/19 07:00 IMPRESSION: NO RADIOGRAPHIC EVIDENCE FOR ACUTE ABDOMINAL DISEASE. Stroke Is this a Stroke Patient?: No Acute Heart Failure - Is this a Heart Failure Patient?: No
== END 2019-08-16 12:18 | disposition home or self-care (01) | DRG 378 ==
LOC: ER 15:06 → EH 18:42 → 3N 19:25 → EH 19:41 → 4W 20:15 → 2N 08-15 23:15
PROVIDERS: ADMIT Hospitalist; ATTEND Hospitalist
DX: K92.1 Melena (principal); N17.9 Acute kidney failure, unspecified; N39.0 Urinary tract infection, site not specified; D64.9 Anemia, unspecified; Z96.0 Presence of urogenital implants; K80.20 Calculus of gallbladder without cholecystitis without obstruction; I12.9 Hypertensive chronic kidney disease with stage 1 through stage 4 chronic kidney disease, or unspecified chronic kidney disease; N18.9 Chronic kidney disease, unspecified; M19.90 Unspecified osteoarthritis, unspecified site; Z85.41 Personal history of malignant neoplasm of cervix uteri; Z87.891 Personal history of nicotine dependence
CPT/HCPCS: 36415; 51702; 74018; 74176; 80048; 80053; 81001; 83690; 85025; 85610; 85730; 87086; 87088; 87186; 99285; C9113; J3490; J7030; S0028

== ENCOUNTER → 2019-09-02 | Outpatient (CLI) | payer MEDICARE ==
[2019-09-02 10:50] LABS: ABSOLUTE BASOPHILS # (AUTO) 0.1 10^3/uL (0.0-0.2); ABSOLUTE EOSINOPHILS # (AUTO) 0.2 10^3/uL (0.0-0.6); ABSOLUTE LYMPHOCYTES (AUTO) 1.8 10^3/uL (0.5-4.7); ABSOLUTE MONOCYTES (AUTO) 0.3 10^3/uL (0.1-1.4); ABSOLUTE NEUT (AUTO) 3.4 10^3/uL (1.7-8.2); BASOPHILS % (AUTO) 1.9 % (0-2); EOSINOPHILS % (AUTO) 3.1 % (0-6); HEMATOCRIT 27.7 % (36.0-47.0); HEMOGLOBIN 9.3 g/dL (12.0-15.5); LYMPHOCYTES % (AUTO) 31.5 % (13-45); MEAN CORPUSCULAR HEMOGLOBIN 32.1 pg (27.0-33.4); MEAN CORPUSCULAR HGB CONC 33.4 g/dL (32.0-36.0); MEAN CORPUSCULAR VOLUME 96 fl (80-97); MONOCYTES % (AUTO) 5.6 % (3-13); PLATELET COUNT 220 10^3/uL (150-450); RED BLOOD COUNT 2.89 10^6/uL (3.72-5.28); RED CELL DISTRIBUTION WIDTH 13.5 % (11.5-14.0); SEGMENTED NEUTROPHILS % (AUTO) 57.9 % (42-78); TOTAL CELLS COUNTED % (AUTO) 100 %; WHITE BLOOD COUNT 5.8 10^3/uL (4.0-10.5)
[2019-09-02 11:11] LABS: ALBUMIN 4.1 g/dL (3.5-5.0); ALKALINE PHOSPHATASE 67 U/L (38-126); ANION GAP 12 (5-19); ASPARTATE AMINO TRANSFERASE 18 U/L (14-36); BILIRUBIN,DIRECT 0.3 mg/dL (0.0-0.4); BILIRUBIN,TOTAL 0.5 mg/dL (0.2-1.3); BLOOD UREA NITROGEN 44 mg/dL (7-20); CALCIUM 8.9 mg/dL (8.4-10.2); CARBON DIOXIDE 17 mmol/L (22-30); CHLORIDE 111 mmol/L (98-107); CHOLESTEROL 262.32 mg/dL (0-200); GLUCOSE 130 mg/dL (75-110); POTASSIUM 5.2 mmol/L (3.6-5.0); TOTAL PROTEIN 7.5 g/dL (6.3-8.2); TRIGLYCERIDES 266 mg/dL (<150)
[2019-09-02 11:23] LABS: DIRECT LDL 155 mg/dL (<100)
[2019-09-02 11:24] LABS: VLDL CHOLESTEROL 53.2 mg/dL (10-31)
== END ==
LOC: LAB 10:25
PROVIDERS: ATTEND Internal Medicine
DX: K92.2 Gastrointestinal hemorrhage, unspecified (principal); N39.0 Urinary tract infection, site not specified; E86.0 Dehydration; N18.3 Chronic kidney disease, stage 3 (moderate)
CPT/HCPCS: 36415; 80053; 80061; 84443; 85025

== ENCOUNTER → 2019-10-13 | Outpatient (CLI) | payer MEDICARE ==
[2019-10-13 09:07] LABS: ABSOLUTE BASOPHILS # (AUTO) 0.1 10^3/uL (0.0-0.2); ABSOLUTE EOSINOPHILS # (AUTO) 0.2 10^3/uL (0.0-0.6); ABSOLUTE LYMPHOCYTES (AUTO) 1.3 10^3/uL (0.5-4.7); ABSOLUTE MONOCYTES (AUTO) 0.3 10^3/uL (0.1-1.4); ABSOLUTE NEUT (AUTO) 3.1 10^3/uL (1.7-8.2); BASOPHILS % (AUTO) 1.7 % (0-2); EOSINOPHILS % (AUTO) 3.3 % (0-6); HEMATOCRIT 28.5 % (36.0-47.0); HEMOGLOBIN 9.6 g/dL (12.0-15.5); LYMPHOCYTES % (AUTO) 25.6 % (13-45); MEAN CORPUSCULAR HEMOGLOBIN 31.9 pg (27.0-33.4); MEAN CORPUSCULAR HGB CONC 33.6 g/dL (32.0-36.0); MEAN CORPUSCULAR VOLUME 95 fl (80-97); PLATELET COUNT 195 10^3/uL (150-450); RED CELL DISTRIBUTION WIDTH 13.2 % (11.5-14.0); SEGMENTED NEUTROPHILS % (AUTO) 62.4 % (42-78); TOTAL CELLS COUNTED % (AUTO) 100 %; WHITE BLOOD COUNT 4.9 10^3/uL (4.0-10.5)
[2019-10-13 09:41] LABS: ALBUMIN 3.7 g/dL (3.5-5.0); ALKALINE PHOSPHATASE 59 U/L (38-126); ANION GAP 10 (5-19); ASPARTATE AMINO TRANSFERASE 19 U/L (14-36); BILIRUBIN,DIRECT 0.3 mg/dL (0.0-0.4); BILIRUBIN,TOTAL 0.5 mg/dL (0.2-1.3); BLOOD UREA NITROGEN 45 mg/dL (7-20); CALCIUM 8.7 mg/dL (8.4-10.2); CARBON DIOXIDE 19 mmol/L (22-30); CHLORIDE 111 mmol/L (98-107); GLUCOSE 92 mg/dL (75-110); IRON(TIBC) 69.5 ug/dL (37-170); TOTAL PROTEIN 7.1 g/dL (6.3-8.2)
[2019-10-14 14:37] LABS: A/G RATIO 1.3 (0.7-1.7); ALBUMIN 2 3.6 g/dL (2.9-4.4); ALPHA-2-GLOBULIN 2 0.4 g/dL (0.4-1.0); BETA GLOBULINS 0.9 g/dL (0.7-1.3); GAMMA GLOBULIN 1.3 g/dL (0.4-1.8); GLOBULIN TOTAL 2.8 g/dL (2.2-3.9); MONOCLONAL SPIKE Not Observed g/dL (Not Observ); PROTEIN TOTAL SERUM 6.4 g/dL (6.0-8.5)
== END ==
LOC: OD 08:28
PROVIDERS: ATTEND Internal Medicine Nephrology
DX: N18.4 Chronic kidney disease, stage 4 (severe) (principal); D64.9 Anemia, unspecified; I95.9 Hypotension, unspecified
CPT/HCPCS: 36415; 80053; 82533; 82728; 83540; 83550; 83735; 83970; 84100; 84165; 85025

== ENCOUNTER 2020-05-08 13:52 | Emergency (ER) | payer MEDICARE ==
[2020-05-08 14:18] VITALS: BP 120/73
--- NOTE | 2020-05-08 15:20 | ER Document Report ---
ED Medical Screen (RME) - General Chief Complaint: Flank Pain Stated Complaint: FLANK PAIN Time Seen by Provider: 05/08/20 15:15 Primary Care Provider: Michael NICHOLSON MD [Primary Care Provider] - Follow up as needed Mode of Arrival: Medic Information source: Patient Notes: 80-year-old female presented to ED for complaint of left flank pain that started yesterday. She states she did have nausea yesterday but none today. She states EMS gave her something and the ambulance on the way to here and now she is not having near as much pain. She does not have any medical history of anything except for cervical cancer. She states they did not remove the cervix and did not do a hysterectomy they just did radiation therapy. She states she does not smoke drink or use any illicit drugs. She states the only real complaint right now is her feet are cold. I did give her socks. I have ordered blood urine and a CT to rule out a kidney stone. I have greeted and performed a rapid initial assessment of this patient. A comprehensive ED assessment and evaluation of the patient, analysis of test results and completion of medical decision making process will be conducted by an additional ED providers. TRAVEL OUTSIDE OF THE [place] IN LAST 30 DAYS: No - Related Data Allergies/Adverse Reactions: No Known Allergies Allergy (Verified 08/10/19 14:30) Past Medical History - Social History Family history: CAD, CVA - Past Medical History Cardiac Medical History: Reports: Hx Hypertension Denies: Hx Coronary Artery Disease, Hx Heart Attack Pulmonary Medical History: Denies: Hx Asthma, Hx Bronchitis, Hx COPD, Hx Pneumonia Neurological Medical History: Denies: Hx Cerebrovascular Accident, Hx Seizures Endocrine Medical History: Denies: Hx Diabetes Mellitus Type 1, Hx Diabetes Mellitus Type 2, Hx Hyperthyroidism, Hx Hypothyroidism Renal/ Medical History: Reports: Hx Renal Insufficiency. Denies: Hx Peritoneal Dialysis Malignancy Medical History: Reports: Hx Cervical Cancer GI Medical History: Denies: Hx Cirrhosis, Hx Crohn's Disease, Hx Hepatitis, Hx Ulcerative Colitis Musculoskeltal Medical History: Reports Hx Arthritis, Denies Hx Gout, Reports Hx Musculoskeletal Deformity Skin Medical History: Denies Hx Eczema, Denies Hx Psoriasis Psychiatric Medical History: Denies: Hx Depression Infectious Medical History: Denies: Hx Hepatitis Past Surgical History: Denies: Hx Hysterectomy - Immunizations Hx Diphtheria, Pertussis, Tetanus Vaccination: No Physical Exam - Vital signs Vitals: Temp Pulse Resp BP Pulse Ox 98.7 F 99 20 120/73 99 05/08/20 14:16 05/08/20 14:16 05/08/20 14:16 05/08/20 14:16 05/08/20 14:16 Course - Vital Signs Vital signs: Temp Pulse Resp BP Pulse Ox 98.7 F 99 20 120/73 99 05/08/20 14:16 05/08/20 14:16 05/08/20 14:16 05/08/20 14:16 05/08/20 14:16 Doctor's Discharge - Discharge Referrals: Michael NICHOLSON MD [Primary Care Provider] - Follow up as needed
[2020-05-08 15:47] LABS: HEMATOCRIT 33.2 % (36.0-47.0); HEMOGLOBIN 11.2 g/dL (12.0-15.5); MEAN CORPUSCULAR HEMOGLOBIN 29.2 pg (27.0-33.4); MEAN CORPUSCULAR HGB CONC 33.6 g/dL (32.0-36.0); MEAN CORPUSCULAR VOLUME 87 fl (80-97); PLATELET COUNT 237 10^3/uL (150-450); RED BLOOD COUNT 3.82 10^6/uL (3.72-5.28); RED CELL DISTRIBUTION WIDTH 13.7 % (11.5-14.0); WHITE BLOOD COUNT 16.2 10^3/uL (4.0-10.5)
[2020-05-08 16:11] LABS: ALBUMIN 4.2 g/dL (3.5-5.0); ALKALINE PHOSPHATASE 150 U/L (38-126); ANION GAP 14 (5-19); ASPARTATE AMINO TRANSFERASE 17 U/L (14-36); BILIRUBIN,DIRECT 0.3 mg/dL (0.0-0.4); BILIRUBIN,TOTAL 0.7 mg/dL (0.2-1.3); BLOOD UREA NITROGEN 57 mg/dL (7-20); CALCIUM 8.9 mg/dL (8.4-10.2); CARBON DIOXIDE 13 mmol/L (22-30); CHLORIDE 113 mmol/L (98-107); GLUCOSE 135 mg/dL (75-110); POTASSIUM 5.3 mmol/L (3.6-5.0); TOTAL PROTEIN 8.4 g/dL (6.3-8.2)
[2020-05-08 16:13] LABS: ABSOLUTE LYMPHOCYTES# (MANUAL) 0.6 10^3/uL (0.5-4.7); ABSOLUTE MONOCYTES # (MANUAL) 0.6 10^3/uL (0.1-1.4); BASOPHILS % (MANUAL) 1 % (0-2); EOSINOPHILS % (MANUAL) 0 % (0-6); LYMPHOCYTES % (MANUAL) 4 % (13-45); MONOCYTES % (MANUAL) 4 % (3-13); SEGMENTED NEUTROPHILS % (MAN) 91 % (42-78); TOTAL CELLS COUNTED 100
[2020-05-08 16:14] LABS: PLATELET CLUMPS PRESENT; PLATELET COMMENT ADEQUATE; RBC MORPHOLOGY COMMENT NORMO-CYTIC/CHROMIC; TOXIC VACUOLATION PRESENT
--- NOTE | 2020-05-08 16:42 | RADIOLOGY REPORT (SQ) ---
EXAM DESCRIPTION: CT ABD/PELVIS NO ORAL OR IV IMAGES COMPLETED DATE/TIME: 05/08/2020 4:08 pm REASON FOR STUDY: left flank pain COMPARISON: 08/14/2019 TECHNIQUE: CT scan of the abdomen and pelvis performed without intravenous or oral contrast. Images reviewed with lung, soft tissue, and bone windows. Reconstructed coronal and sagittal MPR images revi ewed. All images stored on PACS. All CT scanners at this facility use dose modulation, iterative reconstruction, and/or weight based d osing when appropriate to reduce radiation dose to as low as reasonably achievable (ALARA). [facility]: Dose Right [facility]: CareDose [facility]: Dose Right [facility]: Teradose 4D [facility]: Smart eDabba RADIATION DOSE: CT Rad equipment meets quality standard of care and radiation dose reduction techniq ues were employed. CTDIvol: 8.0 mGy. DLP: 403 mGy-cm.mGy. LIMITATIONS: None. FINDINGS: LOWER CHEST: No acute findings. Scattered coronary atherosclerosis. NON-CONTRASTED LIVER, SPLEEN, ADRENALS: Evaluation limited by lack of IV contrast. Stable low-densit y left adrenal adenoma. No other identified significant masses. PANCREAS: No masses. No peripancreatic inflammatory changes. GALLBLADDER: Large partially calcified gallstone, stable. No pericholecystic inflammatory change. RIGHT KIDNEY AND URETER: No suspicious masses. Assessment limited by lack of IV contrast. No signif icant calcifications. Right double-J ureteral stent in expected location. Mild fullness of the jaden al pelvis. LEFT KIDNEY AND URETER: No suspicious masses. Assessment limited by lack of IV contrast. No signifi cant calcifications. Increased left-sided hydronephrosis from prior exam. Left-sided double-J uret eral stent in expected location. AORTA AND RETROPERITONEUM: No aneurysm. No retroperitoneal masses or adenopathy. BOWEL AND PERITONEAL CAVITY: Few scattered colonic diverticula. No focal bowel wall thickening. No evidence of intestinal obstruction. APPENDIX: Not clearly identified. PELVIS, BLADDER, AND ABDOMINAL WALL:Decompressed urinary bladder. Double-J ureteral stent in expecte d location. BONES: No acute bony abnormality. No suspicious osseous lesions. Lower lumbar facet arthropathy. OTHER: No other significant finding. IMPRESSION: 1. Bilateral double-J ureteral stents. Increased left-sided hydronephrosis from prior exam suggestive of stent malfunction. 2. No other evidence of acute intra-abdominal/pelvic process. 2. Large gallstone, stable. COMMENT: Quality ID # [id number]: Final reports with documentation of one or more dose reduction techniques (e.g., Automated exposure control, adjustment of the mA and/or kV according to patient size, use of iterative reconstruction technique) TECHNICAL DOCUMENTATION: JOB ID: [id number] 2010 [employer]- All Rights Reserved Reading location - IP/workstation name: [facility]
== END 2020-05-08 20:42 | disposition left against medical advice (07) ==
LOC: ER 13:52
DX: K80.20 Calculus of gallbladder without cholecystitis without obstruction (principal); N13.30 Unspecified hydronephrosis; R10.9 Unspecified abdominal pain; I10 Essential (primary) hypertension; Z85.41 Personal history of malignant neoplasm of cervix uteri; Z92.3 Personal history of irradiation; Z90.710 Acquired absence of both cervix and uterus; Z96.0 Presence of urogenital implants; Z53.20 Procedure and treatment not carried out because of patient's decision for unspecified reasons
CPT/HCPCS: 36415; 74176; 80053; 85025; 99281

== ENCOUNTER 2020-05-10 10:02 | Emergency (ER) | payer MEDICARE ==
--- NOTE | 2020-05-10 11:22 | ER Document Report ---
ED Medical Screen (RME) - General Chief Complaint: Diarrhea Stated Complaint: DIARRHEA,BACK PAIN Time Seen by Provider: 05/10/20 11:17 Primary Care Provider: ELFEGO MONTALVO MD [Primary Care Provider] - Follow up as needed Mode of Arrival: Wheelchair Notes: 80-year-old female presents to ED for complaint of abdominal pain with diarrhea since Friday. She states she got her blood work done but she did not feel like stand so she went home. She did not follow-up with her primary care doctor. She states she is continued to having cramping and discomfort. She has returned today. When I explained to her that we have to redraw the blood she became very irritated and said that very irritating. I explained to her that this is a different day and things can be different from when they were when she was seen on Friday. Patient is alert oriented respirations regular nonlabored speaking in full sentences. She states she does not smoke she drinks once a month does not use any illicit drugs. She states her medical history has not changed since Friday and does not want to review it again. I have greeted and performed a rapid initial assessment of this patient. A comprehensive ED assessment and evaluation of the patient, analysis of test results and completion of medical decision making process will be conducted by an additional ED providers. TRAVEL OUTSIDE OF THE [place] IN LAST 30 DAYS: No - Related Data Allergies/Adverse Reactions: No Known Allergies Allergy (Verified 08/10/19 14:30) Past Medical History - Social History Family history: CAD, CVA - Past Medical History Cardiac Medical History: Reports: Hx Hypertension Denies: Hx Coronary Artery Disease, Hx Heart Attack Pulmonary Medical History: Denies: Hx Asthma, Hx Bronchitis, Hx COPD, Hx Pneumonia Neurological Medical History: Denies: Hx Cerebrovascular Accident, Hx Seizures Endocrine Medical History: Denies: Hx Diabetes Mellitus Type 1, Hx Diabetes Kailey litus Type 2, Hx Hyperthyroidism, Hx Hypothyroidism Renal/ Medical History: Reports: Hx Renal Insufficiency. Denies: Hx Peritoneal Dialysis Malignancy Medical History: Reports: Hx Cervical Cancer GI Medical History: Denies: Hx Cirrhosis, Hx Crohn's Disease, Hx Hepatitis, Hx Ulcerative Colitis Musculoskeltal Medical History: Reports Hx Arthritis, Denies Hx Gout, Reports Hx Musculoskeletal Deformity Skin Medical History: Denies Hx Eczema, Denies Hx Psoriasis Psychiatric Medical History: Denies: Hx Depression Infectious Medical History: Denies: Hx Hepatitis Past Surgical History: Denies: Hx Hysterectomy - Immunizations Hx Diphtheria, Pertussis, Tetanus Vaccination: No Physical Exam - Vital signs Vitals: Temp Pulse Resp BP Pulse Ox 98.4 F 106 H 16 109/62 100 05/10/20 10:08 05/10/20 10:08 05/10/20 10:08 05/10/20 10:08 05/10/20 10:08 Course - Vital Signs Vital signs: Temp Pulse Resp BP Pulse Ox 98.4 F 106 H 16 109/62 100 05/10/20 10:08 05/10/20 10:08 05/10/20 10:08 05/10/20 10:08 05/10/20 10:08 Doctor's Discharge - Discharge Referrals: ELFEGO MONTALVO MD [Primary Care Provider] - Follow up as needed
[2020-05-10] MEDS ORDERED: CEFTRIAXONE 2 GM/D5W RTU 2 GM/50 ML RTUPB IV ONE (12:02)
[2020-05-10] MEDS ORDERED: NORMAL SALINE 1000 ML 1,000 ML IV ONE (12:03)
[2020-05-10 13:14] LABS: ABSOLUTE LYMPHOCYTES (AUTO) 1.4 10^3/uL (0.5-4.7); ABSOLUTE MONOCYTES (AUTO) 0.7 10^3/uL (0.1-1.4); ABSOLUTE NEUT (AUTO) 8.5 10^3/uL (1.7-8.2); BASOPHILS % (AUTO) 0.3 % (0-2); EOSINOPHILS % (AUTO) 0.2 % (0-6); HEMATOCRIT 32.6 % (36.0-47.0); HEMOGLOBIN 10.8 g/dL (12.0-15.5); LYMPHOCYTES % (AUTO) 13.4 % (13-45); MEAN CORPUSCULAR HEMOGLOBIN 29.1 pg (27.0-33.4); MEAN CORPUSCULAR VOLUME 88 fl (80-97); MONOCYTES % (AUTO) 6.9 % (3-13); PLATELET COUNT 254 10^3/uL (150-450); RED BLOOD COUNT 3.69 10^6/uL (3.72-5.28); RED CELL DISTRIBUTION WIDTH 13.8 % (11.5-14.0); SEGMENTED NEUTROPHILS % (AUTO) 79.2 % (42-78); TOTAL CELLS COUNTED % (AUTO) 100 %; WHITE BLOOD COUNT 10.7 10^3/uL (4.0-10.5)
[2020-05-10 13:35] LABS: ALKALINE PHOSPHATASE 132 U/L (38-126); ANION GAP 16 (5-19); ASPARTATE AMINO TRANSFERASE 18 U/L (14-36); BILIRUBIN,DIRECT 0.3 mg/dL (0.0-0.4); BILIRUBIN,TOTAL 0.4 mg/dL (0.2-1.3); BLOOD UREA NITROGEN 78 mg/dL (7-20); CALCIUM 8.6 mg/dL (8.4-10.2); CARBON DIOXIDE 11 mmol/L (22-30); CHLORIDE 111 mmol/L (98-107); GLUCOSE 137 mg/dL (75-110); POTASSIUM 4.6 mmol/L (3.6-5.0); TOTAL PROTEIN 8.2 g/dL (6.3-8.2)
[2020-05-10 14:17] VITALS: BP 130/65
--- NOTE | 2020-05-10 15:37 | ER Document Report ---
ED General - General Chief Complaint: Abdominal Pain Stated Complaint: DIARRHEA,BACK PAIN Time Seen by Provider: 05/10/20 11:17 Primary Care Provider: ELFEGO MONTALVO MD [Primary Care Provider] - Follow up as needed Mode of Arrival: Wheelchair Information source: Patient TRAVEL OUTSIDE OF THE [place] IN LAST 30 DAYS: No - HPI Notes: Patient comes in complaining of abdominal pain. Is diffuse and mild. Nothing makes it better or worse. It radiates throughout her abdomen. That she has had incontinence of urine for approximately 6 months and has to wear diapers. She also states she is felt weak. She also states she has had a couple episodes of diarrhea in the last few days. She was seen here approximately 2 days ago and had laboratories and a CT scan performed. However she left before seeing a physician. Patient denies any vomiting. On CT scan some J stents are seen in 1 patient is questioned about this she states that she is not sure when they were placed or what the doctors name was. She states that she does believe they are placed here several years ago. - Related Data Allergies/Adverse Reactions: No Known Allergies Allergy (Verified 08/10/19 14:30) Home Medications: vitamin D Past Medical History - General Information source: Patient - Social History Smoking Status: Never Smoker Chew tobacco use (# tins/day): No Frequency of alcohol use: None Drug Abuse: None Family History: CAD, DM, Other - Gallbladder disease Patient has homicidal ideation: No - Past Medical History Cardiac Medical History: Reports: Hx Hypertension Denies: Hx Coronary Artery Disease, Hx Heart Attack Pulmonary Medical History: Denies: Hx Asthma, Hx Bronchitis, Hx COPD, Hx Pneumonia Neurological Medical History: Denies: Hx Cerebrovascular Accident, Hx Seizures Endocrine Medical History: Denies: Hx Diabetes Mellitus Type 1, Hx Diabetes Mellitus Type 2, Hx Hyperthyroidism, Hx Hypothyroidism Renal/ Medical History: Reports: Hx Renal Insufficiency. Denies: Hx Peritoneal Dialysis Malignancy Medical History: Reports: Hx Cervical Cancer GI Medical History: Denies: Hx Cirrhosis, Hx Crohn's Disease, Hx Hepatitis, Hx Ulcerative Colitis Musculoskeletal Medical History: Reports Hx Arthritis, Denies Hx Gout, Reports Hx Musculoskeletal Deformity Skin Medical History: Denies Hx Eczema, Denies Hx Psoriasis Psychiatric Medical History: Denies: Hx Depression Infectious Medical History: Denies: Hx Hepatitis Past Surgical History: Denies: Hx Hysterectomy - Immunizations Hx Diphtheria, Pertussis, Tetanus Vaccination: No Review of Systems - Review of Systems Constitutional: Malaise, Weakness. denies: Chills, Fever Cardiovascular: denies: Chest pain, Palpitations Respiratory: denies: Cough, Short of breath -: Yes All other systems reviewed and negative Physical Exam - Vital signs Vitals: Temp Pulse Resp BP Pulse Ox 98.4 F 106 H 16 109/62 100 05/10/20 10:08 05/10/20 10:08 05/10/20 10:08 05/10/20 10:08 05/10/20 10:08 Interpretation: Tachycardic - General General appearance: Appears well, Alert - HEENT Head: Normocephalic, Atraumatic Eyes: Normal Pupils: PERRL - Respiratory Respiratory status: No respiratory distress Chest status: Nontender Breath sounds: Normal Chest palpation: Normal - Cardiovascular Rhythm: Regular Heart sounds: Normal auscultation Murmur: No - Abdominal Inspection: Normal Distension: No distension Bowel sounds: Normal Tenderness: Tender - Mild diffuse lower quadrants Organomegaly: No organomegaly - Genitourinary External exam: Normal - Back Back: Normal, Nontender - Extremities General upper extremity: Normal inspection, Nontender, Normal color, Normal ROM, Normal temperature General lower extremity: Normal inspection, Nontender, Normal color, Normal ROM, Normal temperature, Normal weight bearing. No: Rashida's sign - Neurological Neuro grossly intact: Yes Cognition: Normal Orientation: AAOx4 Prospect Coma Scale Eye Opening: Spontaneous Prospect Coma Scale Verbal: Oriented Prospect Coma Scale Motor: Obeys Commands Ayden Coma Scale Total: 15 Speech: Normal Motor strength normal: LUE, RUE, LLE, RLE Sensory: Normal - Psychological Associated symptoms: Normal affect, Normal mood - Skin Skin Temperature: Warm Skin Moisture: Dry Skin Color: Normal Course - Re-evaluation Re-evalutation: 05/10/20 15:34 Patient planes of abdominal pain and generalized malaise as well as some diarrhea. On CT scan it is appreciated the patient has bilateral ureteral stents. It appears that the left side is not functioning appropriately as she has some hydro-on the side. When a Canales catheter was placed into the bladder there was only return of pus without any significant urine. Laboratories are significant for an elevated white blood cell count, and elevated creatinine as well. I have called and spoke with Dr. styles at [facility]. He has agreed to accept the patient in transfer in conjunction with the hospitalist Dr. Caren Fajardo. At this time we are arranging transportation for the patient to be transferred to [facility] for treatment of the urinary tract infection and removal of the stent. - Vital Signs Vital signs: Temp Pulse Resp BP Pulse Ox 98.2 F 80 16 130/65 H 99 05/10/20 14:16 05/10/20 14:16 05/10/20 14:16 05/10/20 14:16 05/10/20 14:16 - Laboratory Result Diagrams: 05/10/20 12:55 05/10/20 12:55 Laboratory results interpreted by me: 05/10/20 05/10/20 12:55 12:55 WBC 10.7 H RBC 3.69 L Hgb 10.8 L Hct 32.6 L Absolute Neuts (auto) 8.5 H Seg Neutrophils % 79.2 H Chloride 111 H Carbon Dioxide 11 L BUN 78 H Creatinine 3.88 H Est GFR ( Amer) 14 L Est GFR (MDRD) Non-Af 11 L Glucose 137 H Alkaline Phosphatase 132 H - Diagnostic Test Radiology reviewed: Image reviewed, Reports reviewed Discharge - Discharge Clinical Impression: Acute kidney injury superimposed on chronic kidney disease, Presence of double- J stent UTI (urinary tract infection) Qualifiers: Urinary tract infection type: acute cystitis Hematuria presence: without hematuria Qualified Code(s): N30.00 - Acute cystitis without hematuria Condition: Serious Disposition: [facility] Referrals: ELFEGO MONTALVO MD [Primary Care Provider] - Follow up as needed
== END 2020-05-10 16:48 | disposition short-term general hospital (02) ==
LOC: ER 10:02
DX: N30.00 Acute cystitis without hematuria (principal); I12.9 Hypertensive chronic kidney disease with stage 1 through stage 4 chronic kidney disease, or unspecified chronic kidney disease; N18.9 Chronic kidney disease, unspecified; R10.9 Unspecified abdominal pain; R19.7 Diarrhea, unspecified; M54.9 Dorsalgia, unspecified; R53.1 Weakness; N17.9 Acute kidney failure, unspecified
CPT/HCPCS: 99285; 96365; 36415; 87040; 87086; 83690; 85025; 87088; 80053; 87186; J7030; J0696

== ENCOUNTER 2020-06-24 16:08 | Emergency (ER) | payer MEDICARE ==
[2020-06-24 16:14] VITALS: BP 124/78
--- NOTE | 2020-06-24 16:38 | ER Document Report ---
ED Medical Screen (RME) - General Chief Complaint: Fall Stated Complaint: FALL/LOWER BACK PAIN Time Seen by Provider: 06/24/20 16:29 Primary Care Provider: ELFEGO MONTALVO MD [Primary Care Provider] - Follow up as needed Notes: Patient is an 80-year-old female presents emergency department after a fall. Patient states that she got out of the car and felt "woozy." She states that she ended up falling on her left bottom. She states that she was able to get up a little bit, but fell back down. States that she, "feels fine." Patient also reports that she has seen her urologist lately and she states that her "urine stinks." She is not currently on antibiotics. Exam: Non-tender left hip. TRAVEL OUTSIDE OF THE [place] IN LAST 30 DAYS: No - Related Data Allergies/Adverse Reactions: No Known Allergies Allergy (Verified 06/24/20 16:27) Past Medical History - Social History Family history: CAD, CVA - Past Medical History Cardiac Medical History: Reports: Hx Hypertension Denies: Hx Coronary Artery Disease, Hx Heart Attack Pulmonary Medical History: Denies: Hx Asthma, Hx Bronchitis, Hx COPD, Hx Pneumonia Neurological Medical History: Denies: Hx Cerebrovascular Accident, Hx Seizures Endocrine Medical History: Denies: Hx Diabetes Mellitus Type 1, Hx Diabetes Mellitus Type 2, Hx Hyperthyroidism, Hx Hypothyroidism Renal/ Medical History: Reports: Hx Renal Insufficiency. Denies: Hx Peritoneal Dialysis Malignancy Medical History: Reports: Hx Cervical Cancer GI Medical History: Denies: Hx Cirrhosis, Hx Crohn's Disease, Hx Hepatitis, Hx Ulcerative Colitis Musculoskeltal Medical History: Reports Hx Arthritis, Denies Hx Gout, Reports Hx Musculoskeletal Deformity Skin Medical History: Denies Hx Eczema, Denies Hx Psoriasis Psychiatric Medical History: Denies: Hx Depression Infectious Medical History: Denies: Hx Hepatitis Past Surgical History: Denies: Hx Hysterectomy - Immunizations Hx Diphtheria, Pertussis, Tetanus Vaccination: No Physical Exam - Vital signs Vitals: Temp Pulse Resp BP Pulse Ox 98.0 F 96 16 124/78 98 06/24/20 16:14 06/24/20 16:14 06/24/20 16:14 06/24/20 16:14 06/24/20 16:14 Course - Vital Signs Vital signs: Temp Pulse Resp BP Pulse Ox 98.0 F 96 16 124/78 98 11/21/20 16:14 06/24/20 16:14 06/24/20 16:14 06/24/20 16:14 06/24/20 16:14 Doctor's Discharge - Discharge Referrals: ELFEGO MONTALVO MD [Primary Care Provider] - Follow up as needed
[2020-06-24 16:54] LABS: ABSOLUTE BASOPHILS # (AUTO) 0.1 10^3/uL (0.0-0.2); ABSOLUTE EOSINOPHILS # (AUTO) 0.1 10^3/uL (0.0-0.6); ABSOLUTE LYMPHOCYTES (AUTO) 0.6 10^3/uL (0.5-4.7); ABSOLUTE MONOCYTES (AUTO) 0.3 10^3/uL (0.1-1.4); ABSOLUTE NEUT (AUTO) 7.3 10^3/uL (1.7-8.2); BASOPHILS % (AUTO) 0.7 % (0-2); HEMATOCRIT 29.9 % (36.0-47.0); HEMOGLOBIN 9.9 g/dL (12.0-15.5); LYMPHOCYTES % (AUTO) 7.3 % (13-45); MEAN CORPUSCULAR HGB CONC 33.2 g/dL (32.0-36.0); MEAN CORPUSCULAR VOLUME 87 fl (80-97); MONOCYTES % (AUTO) 3.6 % (3-13); PLATELET COUNT 254 10^3/uL (150-450); RED BLOOD COUNT 3.43 10^6/uL (3.72-5.28); RED CELL DISTRIBUTION WIDTH 14.9 % (11.5-14.0); SEGMENTED NEUTROPHILS % (AUTO) 87.4 % (42-78); TOTAL CELLS COUNTED % (AUTO) 100 %; WHITE BLOOD COUNT 8.3 10^3/uL (4.0-10.5)
[2020-06-24 17:12] LABS: ALBUMIN 4.1 g/dL (3.5-5.0); ALKALINE PHOSPHATASE 128 U/L (38-126); ANION GAP 13 (5-19); ASPARTATE AMINO TRANSFERASE 18 U/L (14-36); BILIRUBIN,DIRECT 0.1 mg/dL (0.0-0.4); BILIRUBIN,TOTAL 0.3 mg/dL (0.2-1.3); BLOOD UREA NITROGEN 65 mg/dL (7-20); CALCIUM 8.4 mg/dL (8.4-10.2); CARBON DIOXIDE 15 mmol/L (22-30); CHLORIDE 112 mmol/L (98-107); GLUCOSE 196 mg/dL (75-110); POTASSIUM 4.8 mmol/L (3.6-5.0)
--- NOTE | 2020-06-24 17:12 | RADIOLOGY REPORT (SQ) ---
EXAM DESCRIPTION: PELVIS AP IMAGES COMPLETED DATE/TIME: 06/24/2020 5:03 pm REASON FOR STUDY: fall; Left hip pain COMPARISON: None. NUMBER OF VIEWS: One view TECHNIQUE: AP Pelvis LIMITATIONS: None. FINDINGS: MINERALIZATION: Normal. HIPS: No acute fracture or dislocation. No worrisome bone lesions. PELVIS AND SACRUM: No acute fracture or dislocation. No worrisome bone lesions. PUBIS AND ISCHIUM: No acute fracture. LOWER LUMBAR SPINE: No significant findings as visualized. SOFT TISSUES: No findings. OTHER: No other significant finding. IMPRESSION: NEGATIVE STUDY OF THE PELVIS. COMMENT: Pelvic fractures are often occult on plain radiographs. If strong clinical suspicion for f racture, recommend CT or MR. TECHNICAL DOCUMENTATION: JOB ID: [id number] 2010 [employer]- All Rights Reserved Reading location - IP/workstation name: [email or web address]
--- NOTE | 2020-06-24 19:44 | EKG REPORT ---
SEVERITY:- ABNORMAL ECG - SINUS RHYTHM LEFT VENTRICULAR HYPERTROPHY : Confirmed by: Romy Sheldon MD 24-Jun-2020 19:44:03
== END 2020-06-24 21:59 | disposition left against medical advice (07) ==
LOC: ER 16:08
DX: M54.5 Low back pain (principal); W19.XXXA Unspecified fall, initial encounter; I10 Essential (primary) hypertension
CPT/HCPCS: 36415; 72170; 80053; 85025; 93005; 93010; 99281